=== PATIENT | male | born 1975 | race Caucasian/White ===

== ENCOUNTER 2016-11-13 07:51 | Outpatient (RCR) | payer MEDICARE, MEDICAID ==
[~2016-11-13 07:51] MED LIST: AMOX875T2 PO; APAP325T PO; BENZ200C44 PO; CELE20TA; CELE40TA OR; CIPR500T89 PO; FLAG500T PO; FLON0.054; GEOD40CA2 PO; GEOD60CA; GEOD60CA OR; GEOD60CA PO; GUAI1TAB PO; IBUP-1114 PO; MOM30SS PO; MYLI40DR PO; OMEP40CA2 PO; PREV30TA; PRIL40CA PO; PROA1AER INH; PROT1TAB2 PO; TRAZ100T4 PO; TRAZ50TA; TRAZ50TA OR; TRAZ50TA4 PO; TYLE325T5 PO; ZIPR40CA11 PO; ZIPR80CAP; antibiotic
== END 2016-11-21 ==
LOC: M PT 07:51
PROVIDERS: ATTEND Orthopaedic Surgery
DX: Z51.89 Encounter for other specified aftercare (principal); M51.26 Other intervertebral disc displacement, lumbar region; M47.896 Other spondylosis, lumbar region
CPT/HCPCS: 97162; G8978; G8979

== ENCOUNTER 2016-12-05 08:30 | Outpatient (RCR) | payer MEDICARE, MEDICAID ==
[~2016-12-05 08:30] MED LIST changes: -ALBU17IN INH; -BREO1INH INH; -BUSP15TA47 PO; -DOXY-278 PO; -FLON1SPR; -HYDR25T PO; -MUCI600T34 PO; -NICO2GUM8 PO; -PRED20TA PO; -TESS100C PO; -TYLE500T78 PO; -ZIPR80CA12 PO
[2016-12-15] MEDS ORDERED: FLON1SPR (10:36)
[2016-12-15] MEDS ORDERED: BREO1INH INH (10:36)
[2016-12-15] MEDS ORDERED: TYLE500T78 PO (10:36)
[2016-12-15] MEDS ORDERED: PROA1AER INH (10:36)
[2016-12-15] MEDS ORDERED: HYDR25T PO (10:36)
[2016-12-15] MEDS ORDERED: NICO2GUM8 PO (10:36)
[2016-12-15] MEDS ORDERED: BUSP15TA47 PO (10:36)
[2016-12-15] MEDS ORDERED: ZIPR80CA12 PO (10:36)
== END 2016-12-08 15:10 | disposition home or self-care (01) ==
LOC: M PT 08:30
PROVIDERS: ATTEND Orthopaedic Surgery
DX: Z51.89 Encounter for other specified aftercare (principal); M51.26 Other intervertebral disc displacement, lumbar region; M47.896 Other spondylosis, lumbar region

== ENCOUNTER → 2016-12-05 | Outpatient (REF) | payer MEDICARE, MEDICAID ==
[~2016-12-05] MED LIST changes: +ALBU17IN INH; +BREO1INH INH; +BUSP15TA47 PO; +DOXY-278 PO; +FLON1SPR; +HYDR25T PO; +MUCI600T34 PO; +NICO2GUM8 PO; +PRED20TA PO; +TESS100C PO; +TYLE500T78 PO; +ZIPR80CA12 PO
[2016-12-05 12:56] LABS: MEAN CORPUSCULAR HEMOGLOBIN 34.2 pg (27.0-33.0); MEAN CORPUSCULAR HGB CONC 34.3 g/dl (32.0-36.5); MEAN CORPUSCULAR VOLUME 99.7 fl (80.0-96.0); RED CELL DISTRIBUTION WIDTH 12.4 % (11.5-14.5); WHITE BLOOD COUNT 7.5 K/mm3 (4.0-10.0)
[2016-12-05 13:05] LABS: INR 1.06
[2016-12-05 14:25] LABS: ALKALINE PHOSPHATASE 95 U/L (45-117); ALT/SGPT 50 U/L (12-78); AST/SGOT 24 U/L (15-37); BILIRUBIN,TOTAL 0.6 MG/DL (0.2-1.0); CHLORIDE LEVEL 105 MEQ/L (98-107); CREATININE FOR GFR 0.96 MG/DL (0.70-1.30); POTASSIUM SERUM 4.2 MEQ/L (3.5-5.1); SODIUM LEVEL 140 MEQ/L (136-145); TOTAL PROTEIN 7.1 GM/DL (6.4-8.2)
[2016-12-05 14:36] LABS: ALBUMIN/GLOBULIN RATIO 1.29 (1.00-1.93); ANION GAP 7 MEQ/L (8-16); BLOOD UREA NITROGEN 19 MG/DL (7-18); CALCIUM LEVEL 8.8 MG/DL (8.5-10.1); CARBON DIOXIDE LEVEL 28 MEQ/L (21-32); GLUCOSE, FASTING 122 MG/DL (70-105)
== END ==
LOC: M SFHCADAM 11:17
PROVIDERS: ATTEND Family Medicine
DX: Z01.818 Encounter for other preprocedural examination (principal); K21.9 Gastro-esophageal reflux disease without esophagitis; R94.31 Abnormal electrocardiogram [ECG] [EKG]; Z79.899 Other long term (current) drug therapy
CPT/HCPCS: 80053; 85027; 85610; 85730; 93005; G0463

== ENCOUNTER 2016-12-08 18:23 | Emergency (ER) | payer MEDICARE, MEDICAID ==
--- NOTE | 2016-12-08 19:39 | EDDOCDS ---
Nurse's Notes [facility] Name: Glen Barlow Age: 40 yrs Sex: Male : 1975 Arrival Date: 12/08/2016 Time: 18:23 Bed TR8 Private MD: Ashley Villegas PA-C Diagnosis: Acute anal fissure;Dysuria Presentation: 12/08 18:28 Presenting complaint: Patient states: Blood in urine and rectal pain. "I think my ld5 hemorrhoids have been flaring up and I can't eat spicy foods. I think I need an xray". Adult Sepsis Screening: The patient does not have new or worsening altered mentation. Patient's respiratory rate is less than 22. Systolic blood pressure is greater than 100. Patient has a qSOFA score of 0- Negative Sepsis Screen. Suicide/Homicide risk assessment- the patient denies having any suicidal and/or homicidal ideations and does not present with any other emotional, behavioral or mental health complaints. 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 Transition of care: patient was not received from another setting of care. 18:28 Acuity: TATIANNA Level 4 ld5 18:28 Method Of Arrival: Walkin/Carried/Asstd ld5 Triage Assessment: 18:31 General: Appears unkempt, Behavior is anxious, cooperative. Pain: Location: rectum Pain ld5 currently is 7 out of 10 on a pain scale. HIV screening NA for this visit Offered previously. Respiratory: Airway is patent Respiratory effort is even, unlabored. : Reports hematuria. Historical: - Allergies: Aspirin ("makes me high"); - Home Meds: 1. albuterol sulfate 90 mcg/actuation Inhl HFAA 2 puffs every 4 hours 2. Geodon 40 mg Oral cap 2 times per day 3. hydroxyzine HCl 25 mg Oral tab daily 4. Nasonex 50 mcg/actuation Nasal spry 2 sprays once daily 5. omeprazole 20 mg Oral cpDR once daily 6. trazodone 50 mg Oral tab 1 tab nightly 7. Tylenol 325 mg Oral tab as needed - PMHx: Allergies, Seasonal; Anxiety; Bipolar disorder; GERD; Schizophrenia; Hiatal Hernia; Hemorrhoids; - PSHx: none; - Social history: Smoking status: Patient uses tobacco products, current every day smoker. No barriers to communication noted, The patient speaks fluent Hebrew, Speaks appropriately for age. - Family history: Not pertinent. - : The pt / caregiver states he / she is not on anticoagulants. Home medication list is obtained from the patient. - Exposure Risk Screening:: None identified. Screenin:37 Screening information is obtained from the patient. Fall risk: No risks identified. cz Assistance ADL's: requires no assistance with activities of daily living. Abuse/DV Screen: The patient / caregiver reports he/she is: not in a situation that causes fear, pain or injury. Nutritional screening: No deficits noted. Advance Directives: Currently, there is no health care proxy. There is no active DNR order. There is no living will. There is no Power of Product Marketing Intern. Advance directive information has not previously been placed in an [facility] medical record. home support is adequate. Assessment: 19:37 Reassessment: Patient appears in no apparent distress at this time. Patient states cz symptoms have improved. Vital Signs: 18:25 BP 142 / 66; Pulse 92; Resp 20 S; Temp 97.7(O); Pulse Ox 98% on R/A; Weight 110.22 kg gr2 (R); Height 5 ft. 6 in. (167.64 cm) (R); Pain 7/10; 19:36 BP 164 / 77 LA Sitting (auto/reg); Pulse 86 MON; Resp 20 S; Temp 97.9(TE); Pulse Ox 96% cln on R/A; Pain 0/10; 18:25 Body Mass Index 39.22 (110.22 kg, 167.64 cm) gr2 Vitals: 18:25 Log In Time: December 08, 2016 at 18:25. gr2 ED Course: 18:24 Patient visited by Reece Garnica. gr2 18:24 Patient moved to Waiting gr2 18:25 Ashley Villegas is Private Physician. gr2 18:27 Patient visited by Reece Garnica. gr2 18:27 Patient moved to Pre RCE gr2 18:30 Triage Initiated ld5 18:32 Patient visited by Isabel Mckeon RN. ld5 18:32 [facility]. ar2 18:32 Linda Gonzalez MD is Attending Physician. ar2 18:32 Patient moved to Triage 2 ld5 18:35 Patient visited by Vish Nathan PA-C. ar2 18:41 Patient moved to PR jjr 18:51 Urine Culture Sent. jjr 18:51 UA Sent. jjr 19:31 Ashley Villegas is Referral Physician. ar2 19:37 Patient visited by Kaylah Riggs PCA. cln 19:37 Patient moved to TR8 cz 19:37 The patient / caregiver is instructed regarding the plan of care and ED course. cz 19:37 No IV's were initiated during this patient's visit. No procedures done that require cz assistance. Order Results: Lab Order: UA; SPEC'M 12/08/16 18:40 Test: APPEARANCE, URINE; Value: CLEAR; Range: CLEAR; Status: F Test: COLOR, URINE; Value: STRAW; Range: YELLOW; Status: F Test: PH,URINE; Value: 7.0; Range: 5.0-9.0; Units: UNITS; Status: F Test: SPECIFIC GRAVITY URINE AUTO; Value: 1.004; Range: 1.002-1.035; Status: F Test: PROTEIN, URINE AUTO; Value: NEGATIVE; Range: NEGATIVE; Units: mg/dL; Status: F Test: GLUCOSE, URINE (UA) AUTO; Value: NEGATIVE; Range: NEGATIVE; Units: mg/dL; Status: F Test: KETONE, URINE AUTO; Value: NEGATIVE; Range: NEGATIVE; Units: mg/dL; Status: F Test: UROBILINOGEN, URINE AUTO; Value: 0.2; Range: 0.0-2.0; Units: mg/dL; Status: F Test: BILIRUBIN, URINE AUTO; Value: NEGATIVE; Range: NEGATIVE; Status: F Test: NITRITE, URINE AUTO; Value: NEGATIVE; Range: NEGATIVE; Status: F Test: LEUKOCYTE ESTERASE, URINE AUTO; Value: NEGATIVE; Range: NEGATIVE; Status: F Test: BLOOD, URINE BLOOD; Value: 1+; Range: NEGATIVE; Abnormal: Above high normal; Status: F Test: WBC, URINE AUTO; Value: 0; Range: 0-3; Units: /HPF; Status: F Test: RBC, URINE AUTO; Value: 1; Range: 0-3; Units: /HPF; Status: F Test: BACTERIA, URINE AUTO; Value: NEGATIVE; Range: NEGATIVE; Status: F Test: SQUAMOUS EPITHELIAL CELL UR AU; Value: 0; Range: 0-6; Units: /HPF; Status: F Test: HYALINE CAST, URINE AUTO; Value: 0; Range: 0-1; Units: /LPF; Status: F Outcome: 19:32 Discharge ordered by Provider. ar2 19:38 Patient left the ED. cz Signatures: Ponce Stokes RN RN cz Geno Garnica RN RN jrudyr Vish Nathan PA-C PAVincent ar2 Isabel Mckeon,RN RN ld5 Reece Garnica gr2 Keely, Kaylah, LIGHT BULB ASSEMBLER LIGHT BULB ASSEMBLER cln MTDD
--- NOTE | 2016-12-08 19:39 | EDDOCDS ---
Physician Documentation [facility] Name: Glen Barlow Age: 40 yrs Sex: Male : 1975 Arrival Date: 12/08/2016 Time: 18:23 Bed TR8 Private MD: Ashley Villegas PA-C Disposition: 12/08/16 19:32 Discharged to Home/Self Care. Impression: Acute anal fissure, Dysuria. - Condition is Stable. - Discharge Instructions: Anal Fissure, Adult, Dysuria. - Medication Reconciliation, Local Pharmacy Hours form. - Follow up: Ashley Villegas; When: 4 - 5 days; Reason: Recheck today's complaints. Follow up: Emergency Department; When: As needed; Reason: Worsening of conditions. - Problem is new. - Symptoms are unchanged. - Notes: recommend usingflushable wetwipes to aid in discomfort after using bathroom. Historical: - Allergies: Aspirin ("makes me high"); - Home Meds: 1. albuterol sulfate 90 mcg/actuation Inhl HFAA 2 puffs every 4 hours 2. Geodon 40 mg Oral cap 2 times per day 3. hydroxyzine HCl 25 mg Oral tab daily 4. Nasonex 50 mcg/actuation Nasal spry 2 sprays once daily 5. omeprazole 20 mg Oral cpDR once daily 6. trazodone 50 mg Oral tab 1 tab nightly 7. Tylenol 325 mg Oral tab as needed - PMHx: Allergies, Seasonal; Anxiety; Bipolar disorder; GERD; Schizophrenia; Hiatal Hernia; Hemorrhoids; - PSHx: none; - Social history: Smoking status: Patient uses tobacco products, current every day smoker. No barriers to communication noted, The patient speaks fluent Portuguese, Speaks appropriately for age. - Family history: Not pertinent. - : The pt / caregiver states he / she is not on anticoagulants. Home medication list is obtained from the patient. - Exposure Risk Screening:: None identified. Vital Signs: 12/08 18:25 BP 142 / 66; Pulse 92; Resp 20 S; Temp 97.7(O); Pulse Ox 98% on R/A; Weight 110.22 kg / gr2 242.99 lbs (R); Height 5 ft. 6 in. (167.64 cm) (R); Pain 7/10; 19:36 BP 164 / 77 LA Sitting (auto/reg); Pulse 86 MON; Resp 20 S; Temp 97.9(TE); Pulse Ox 96% cln on R/A; Pain 0/10; 18:25 Body Mass Index 39.22 (110.22 kg, 167.64 cm) gr2 MDM: 18:41 Undress patient appropriately for examination ordered. ar2 18:41 Misc. Nursing Order ordered. ar2 18:42 UA Ordered. EDMS 18:42 Urine Culture Ordered. EDMS 19:04 Financial registration complete. gjb 19:29 UA Reviewed. ar2 Signatures: Dispatcher [employer] EDPonce Taylor RN RN cz Vish Nathan PA-C PA-C ar2 Isabel Mckeon,RN RN ld5 Lydia Jarvis MTDD
--- NOTE | 2016-12-10 20:39 | EDDOCDS ---
Nurse's Notes [facility] Name: Glen Barlow Age: 40 yrs Sex: Male : 1975 Arrival Date: 12/08/2016 Time: 18:23 Bed TR8 Private MD: Ashley Villegas PA-C Diagnosis: Acute anal fissure;Dysuria Presentation: 12/08 18:28 Presenting complaint: Patient states: Blood in urine and rectal pain. "I think my ld5 hemorrhoids have been flaring up and I can't eat spicy foods. I think I need an xray". Adult Sepsis Screening: The patient does not have new or worsening altered mentation. Patient's respiratory rate is less than 22. Systolic blood pressure is greater than 100. Patient has a qSOFA score of 0- Negative Sepsis Screen. Suicide/Homicide risk assessment- the patient denies having any suicidal and/or homicidal ideations and does not present with any other emotional, behavioral or mental health complaints. Status: Patient is not a business services representative or dependent. Transition of care: patient was not received from another setting of care. 18:28 Acuity: TATIANNA Level 4 ld5 18:28 Method Of Arrival: Walkin/Carried/Asstd ld5 Triage Assessment: 18:31 General: Appears unkempt, Behavior is anxious, cooperative. Pain: Location: rectum Pain ld5 currently is 7 out of 10 on a pain scale. HIV screening NA for this visit Offered previously. Respiratory: Airway is patent Respiratory effort is even, unlabored. : Reports hematuria. Historical: - Allergies: Aspirin ("makes me high"); - Home Meds: 1. albuterol sulfate 90 mcg/actuation Inhl HFAA 2 puffs every 4 hours 2. Geodon 40 mg Oral cap 2 times per day 3. hydroxyzine HCl 25 mg Oral tab daily 4. Nasonex 50 mcg/actuation Nasal spry 2 sprays once daily 5. omeprazole 20 mg Oral cpDR once daily 6. trazodone 50 mg Oral tab 1 tab nightly 7. Tylenol 325 mg Oral tab as needed - PMHx: Allergies, Seasonal; Anxiety; Bipolar disorder; GERD; Schizophrenia; Hiatal Hernia; Hemorrhoids; - PSHx: none; - Social history: Smoking status: Patient uses tobacco products, current every day smoker. No barriers to communication noted, The patient speaks fluent Sami, Speaks appropriately for age. - Family history: Not pertinent. - : The pt / caregiver states he / she is not on anticoagulants. Home medication list is obtained from the patient. - Exposure Risk Screening:: None identified. Screenin:37 Screening information is obtained from the patient. Fall risk: No risks identified. cz Assistance ADL's: requires no assistance with activities of daily living. Abuse/DV Screen: The patient / caregiver reports he/she is: not in a situation that causes fear, pain or injury. Nutritional screening: No deficits noted. Advance Directives: Currently, there is no health care proxy. There is no active DNR order. There is no living will. There is no Power of Bundle Tier And Labeler. Advance directive information has not previously been placed in an [facility] medical record. home support is adequate. Assessment: 19:37 Reassessment: Patient appears in no apparent distress at this time. Patient states cz symptoms have improved. Vital Signs: 18:25 BP 142 / 66; Pulse 92; Resp 20 S; Temp 97.7(O); Pulse Ox 98% on R/A; Weight 110.22 kg gr2 (R); Height 5 ft. 6 in. (167.64 cm) (R); Pain 7/10; 19:36 BP 164 / 77 LA Sitting (auto/reg); Pulse 86 MON; Resp 20 S; Temp 97.9(TE); Pulse Ox 96% cln on R/A; Pain 0/10; 18:25 Body Mass Index 39.22 (110.22 kg, 167.64 cm) gr2 Vitals: 18:25 Log In Time: December 08, 2016 at 18:25. gr2 ED Course: 18:24 Patient visited by Reece Garnica. gr2 18:24 Patient moved to Waiting gr2 18:25 Ashley Villegas is Private Physician. gr2 18:27 Patient visited by Reece Garnica. gr2 18:27 Patient moved to Pre RCE gr2 18:30 Triage Initiated ld5 18:32 Patient visited by Isabel Mckeon RN. ld5 18:32 [facility]. ar2 18:32 Linda Gonzalez MD is Attending Physician. ar2 18:32 Patient moved to Triage 2 ld5 18:35 Patient visited by Vish Nathan PA-C. ar2 18:41 Patient moved to PR jjr 18:51 Urine Culture Sent. jjr 18:51 UA Sent. jjr 19:31 Ashley Villegas is Referral Physician. ar2 19:37 Patient visited by Kaylah Riggs PCA. cln 19:37 Patient moved to TR8 cz 19:37 The patient / caregiver is instructed regarding the plan of care and ED course. cz 19:37 No IV's were initiated during this patient's visit. No procedures done that require cz assistance. 20:13 [facility] Payment Agreement was scanned into [employer] and attached to record. gjb 12/09 11:05 T-Sheet-- Draft Copy was scanned into [employer] and attached to record. gb Order Results: Lab Order: UA; SPEC'M 12/08/16 18:40 Test: APPEARANCE, URINE; Value: CLEAR; Range: CLEAR; Status: F Test: COLOR, URINE; Value: STRAW; Range: YELLOW; Status: F Test: PH,URINE; Value: 7.0; Range: 5.0-9.0; Units: UNITS; Status: F Test: SPECIFIC GRAVITY URINE AUTO; Value: 1.004; Range: 1.002-1.035; Status: F Test: PROTEIN, URINE AUTO; Value: NEGATIVE; Range: NEGATIVE; Units: mg/dL; Status: F Test: GLUCOSE, URINE (UA) AUTO; Value: NEGATIVE; Range: NEGATIVE; Units: mg/dL; Status: F Test: KETONE, URINE AUTO; Value: NEGATIVE; Range: NEGATIVE; Units: mg/dL; Status: F Test: UROBILINOGEN, URINE AUTO; Value: 0.2; Range: 0.0-2.0; Units: mg/dL; Status: F Test: BILIRUBIN, URINE AUTO; Value: NEGATIVE; Range: NEGATIVE; Status: F Test: NITRITE, URINE AUTO; Value: NEGATIVE; Range: NEGATIVE; Status: F Test: LEUKOCYTE ESTERASE, URINE AUTO; Value: NEGATIVE; Range: NEGATIVE; Status: F Test: BLOOD, URINE BLOOD; Value: 1+; Range: NEGATIVE; Abnormal: Above high normal; Status: F Test: WBC, URINE AUTO; Value: 0; Range: 0-3; Units: /HPF; Status: F Test: RBC, URINE AUTO; Value: 1; Range: 0-3; Units: /HPF; Status: F Test: BACTERIA, URINE AUTO; Value: NEGATIVE; Range: NEGATIVE; Status: F Test: SQUAMOUS EPITHELIAL CELL UR AU; Value: 0; Range: 0-6; Units: /HPF; Status: F Test: HYALINE CAST, URINE AUTO; Value: 0; Range: 0-1; Units: /LPF; Status: F Lab Order: Urine Culture; SPEC'M 12/08/16 18:40 Test: URINE CULTURE; Value: <EXTERNAL COMMENT eCWMed> FULL REPORT IN LAB NOTES (eCW and Medent).; Status: F Test: URINE CULTURE; Value: URINE CULTURE RESULT NO GROWTH; Status: F Outcome: 12/08 19:32 Discharge ordered by Provider. ar2 19:38 Patient left the ED. cz Signatures: Ponce Stokes, RN RN cz Emma Merino, Kenneth Reg Geno Abbott, RN RN Vish Castellanos, PA-C PA-C ar2 Isabel Mckoen,RN RN ld5 Reece Garnica grLydia Pachecob Keely, Kaylah, CARDIAC TECHNOLOGIST CARDIAC TECHNOLOGIST cln Chart Complete MTDD
--- NOTE | 2016-12-10 20:39 | EDDOCDS ---
Physician Documentation [facility] Name: Glen Barlow Age: 40 yrs Sex: Male : 1975 Arrival Date: 12/08/2016 Time: 18:23 Bed TR8 Private MD: Ashley Villegas PA-C Disposition: 12/08/16 19:32 Discharged to Home/Self Care. Impression: Acute anal fissure, Dysuria. - Condition is Stable. - Discharge Instructions: Anal Fissure, Adult, Dysuria. - Medication Reconciliation, Local Pharmacy Hours form. - Follow up: Ashley Villegas; When: 4 - 5 days; Reason: Recheck today's complaints. Follow up: Emergency Department; When: As needed; Reason: Worsening of conditions. - Problem is new. - Symptoms are unchanged. - Notes: recommend usingflushable wetwipes to aid in discomfort after using bathroom. Historical: - Allergies: Aspirin ("makes me high"); - Home Meds: 1. albuterol sulfate 90 mcg/actuation Inhl HFAA 2 puffs every 4 hours 2. Geodon 40 mg Oral cap 2 times per day 3. hydroxyzine HCl 25 mg Oral tab daily 4. Nasonex 50 mcg/actuation Nasal spry 2 sprays once daily 5. omeprazole 20 mg Oral cpDR once daily 6. trazodone 50 mg Oral tab 1 tab nightly 7. Tylenol 325 mg Oral tab as needed - PMHx: Allergies, Seasonal; Anxiety; Bipolar disorder; GERD; Schizophrenia; Hiatal Hernia; Hemorrhoids; - PSHx: none; - Social history: Smoking status: Patient uses tobacco products, current every day smoker. No barriers to communication noted, The patient speaks fluent Belarusian, Speaks appropriately for age. - Family history: Not pertinent. - : The pt / caregiver states he / she is not on anticoagulants. Home medication list is obtained from the patient. - Exposure Risk Screening:: None identified. Vital Signs: 12/08 18:25 BP 142 / 66; Pulse 92; Resp 20 S; Temp 97.7(O); Pulse Ox 98% on R/A; Weight 110.22 kg / gr2 242.99 lbs (R); Height 5 ft. 6 in. (167.64 cm) (R); Pain 7/10; 19:36 BP 164 / 77 LA Sitting (auto/reg); Pulse 86 MON; Resp 20 S; Temp 97.9(TE); Pulse Ox 96% cln on R/A; Pain 0/10; 18:25 Body Mass Index 39.22 (110.22 kg, 167.64 cm) gr2 MDM: 18:41 Undress patient appropriately for examination ordered. ar2 18:41 Misc. Nursing Order ordered. ar2 18:42 UA Ordered. EDMS 18:42 Urine Culture Ordered. EDMS 19:04 Financial registration complete. gjb 19:29 UA Reviewed. ar2 20:13 [facility] Payment Agreement was scanned into [employer] and attached to record. gjb 12/09 11:05 T-Sheet-- Draft Copy was scanned into [employer] and attached to record. gb Signatures: Dispatcher [employer] EDMS Ponce Stokes, YESICA RN cz Emma Merino, Reg Reg gb Vish Nathan, PA-C PAVincent ar2 Isabel Mckeon,RN RN ld5 Lydia Jarvis [facility] The chart was reviewed and I authenticate all verbal orders and agree with the evaluation and treatment provided.Attachments: 12/08 20:13 [facility] Payment Agreement gjb 12/09 11:05 T-Sheet-- Draft Copy gb Chart Complete MTDD
--- NOTE | 2016-12-10 20:39 | EDDOCDS ---
Physician Documentation [facility] Name: Glen Barlow Age: 40 yrs Sex: Male : 1975 Arrival Date: 12/08/2016 Time: 18:23 Bed TR8 Private MD: Ashley Villegas PA-C Disposition: 12/08/16 19:32 Discharged to Home/Self Care. Impression: Acute anal fissure, Dysuria. - Condition is Stable. - Discharge Instructions: Anal Fissure, Adult, Dysuria. - Medication Reconciliation, Local Pharmacy Hours form. - Follow up: Ashley Villegas; When: 4 - 5 days; Reason: Recheck today's complaints. Follow up: Emergency Department; When: As needed; Reason: Worsening of conditions. - Problem is new. - Symptoms are unchanged. - Notes: recommend usingflushable wetwipes to aid in discomfort after using bathroom. Historical: - Allergies: Aspirin ("makes me high"); - Home Meds: 1. albuterol sulfate 90 mcg/actuation Inhl HFAA 2 puffs every 4 hours 2. Geodon 40 mg Oral cap 2 times per day 3. hydroxyzine HCl 25 mg Oral tab daily 4. Nasonex 50 mcg/actuation Nasal spry 2 sprays once daily 5. omeprazole 20 mg Oral cpDR once daily 6. trazodone 50 mg Oral tab 1 tab nightly 7. Tylenol 325 mg Oral tab as needed - PMHx: Allergies, Seasonal; Anxiety; Bipolar disorder; GERD; Schizophrenia; Hiatal Hernia; Hemorrhoids; - PSHx: none; - Social history: Smoking status: Patient uses tobacco products, current every day smoker. No barriers to communication noted, The patient speaks fluent Syriac, Speaks appropriately for age. - Family history: Not pertinent. - : The pt / caregiver states he / she is not on anticoagulants. Home medication list is obtained from the patient. - Exposure Risk Screening:: None identified. Vital Signs: 12/08 18:25 BP 142 / 66; Pulse 92; Resp 20 S; Temp 97.7(O); Pulse Ox 98% on R/A; Weight 110.22 kg / gr2 242.99 lbs (R); Height 5 ft. 6 in. (167.64 cm) (R); Pain 7/10; 19:36 BP 164 / 77 LA Sitting (auto/reg); Pulse 86 MON; Resp 20 S; Temp 97.9(TE); Pulse Ox 96% cln on R/A; Pain 0/10; 18:25 Body Mass Index 39.22 (110.22 kg, 167.64 cm) gr2 MDM: 18:41 Undress patient appropriately for examination ordered. ar2 18:41 Misc. Nursing Order ordered. ar2 18:42 UA Ordered. EDMS 18:42 Urine Culture Ordered. EDMS 19:04 Financial registration complete. gjb 19:29 UA Reviewed. ar2 20:13 [facility] [place] was scanned into [employer] and attached to record. gjb 12/09 11:05 T-Sheet-- Draft Copy was scanned into [employer] and attached to record. gb Signatures: Dispatcher [employer] EDMS Ponce Stokes, YESICA RN cz Emma Merino, Reg Reg gb Vish Nathan, PA-C PAVincent ar2 Isabel Mckeon,RN RN ld5 Lydia Jarvis [facility] The chart was reviewed and I authenticate all verbal orders and agree with the evaluation and treatment provided.Attachments: 12/08 20:13 [facility] [place] Agreement gjb 12/09 11:05 T-Sheet-- Draft Copy gb Chart Complete MTDD
[2016-12-15] MEDS ORDERED: PROA1AER INH (10:36)
[2016-12-15] MEDS ORDERED: FLON1SPR (10:36)
[2016-12-15] MEDS ORDERED: TYLE500T78 PO (10:36)
[2016-12-15] MEDS ORDERED: BREO1INH INH (10:36)
[2016-12-15] MEDS ORDERED: BUSP15TA47 PO (10:36)
[2016-12-15] MEDS ORDERED: HYDR25T PO (10:36)
[2016-12-15] MEDS ORDERED: ZIPR80CA12 PO (10:36)
[2016-12-15] MEDS ORDERED: NICO2GUM8 PO (10:36)
== END 2016-12-08 19:38 | disposition home or self-care (01) ==
LOC: M ED 18:23
DX: K60.2 Anal fissure, unspecified (principal); R30.0 Dysuria; J30.2 Other seasonal allergic rhinitis; F31.9 Bipolar disorder, unspecified; K21.9 Gastro-esophageal reflux disease without esophagitis; K44.9 Diaphragmatic hernia without obstruction or gangrene; K64.9 Unspecified hemorrhoids; F20.9 Schizophrenia, unspecified; Z72.0 Tobacco use; Z92.240 Personal history of inhaled steroid therapy; Z79.899 Other long term (current) drug therapy; Z88.6 Allergy status to analgesic agent

== ENCOUNTER 2016-12-22 07:34 | Emergency (ER) | payer MEDICARE, MEDICAID ==
[~2016-12-22] VITALS: Ht 167.6 cm; Wt 112.0 kg
[~2016-12-22 07:34] MED LIST changes: -ALBU17IN INH; -DOXY-278 PO; -GLYCOPYRROLATE INJ 0.2 MG/ML 2 ML VIAL As Ordered ONE; -KETOROLAC 60 MG/2 ML VIAL (J1885) As Ordered ONE; -LIDOCAINE 2% INJ 100 MG/5 ML SDV (FOR ANES.) As Ordered ONE; -LR 1,000 ML IV SCH; -MIDAZOLAM INJ 2 MG/2 ML VIAL (J2250) As Ordered ONE; -MUCI600T34 PO; -NEOSTIGMINE 1MG/ML 5 ML SYRINGE (J2710) As Ordered ONE; -ONDANSETRON 4MG/2ML VIAL (J2405) As Ordered ONE; -PRED20TA PO; -PROPOFOL 200 MG/20 ML VIAL As Ordered ONE; -ROCURONIUM BROMIDE 50 MG/5 ML VIAL As Ordered ONE; -TESS100C PO; -dexameTHASONE 4 MG/ML 1ML VIAL (J1100) As Ordered ONE; -fentaNYL 100 MCG/2 ML INJECTION (J3010) As Ordered ONE
[2016-12-22] MEDS ORDERED: IPRATROPIUM 0.5MG/ALBUTEROL 2.5MG INH SOL UD 3ML (DUONEB)(J7620) NEB ONE ×2 (08:15→09:00)
[2016-12-22 09:53] VITALS: BP 148/75
[2016-12-22] MEDS ORDERED: MUCI600T34 PO (10:06)
[2016-12-22] MEDS ORDERED: ALBU17IN INH (10:06)
[2016-12-22] MEDS ORDERED: DOXY-278 PO (10:06)
[2016-12-22] MEDS ORDERED: TESS100C PO (10:06)
[2016-12-22] MEDS ORDERED: BREO1INH INH (10:06)
[2016-12-22] MEDS ORDERED: PRED20TA PO (10:07)
--- NOTE | 2016-12-22 10:38 | REP ---
CHEST, TWO VIEWS: COMPARISON: 06/29/2016 There is no acute infiltrate or pulmonary edema. There is mild cardiomegaly. There is a calcified granuloma again seen in the right lung base. The mediastinal silhouette is unremarkable. There are minor degenerative changes of the spine. IMPRESSION: Mild cardiomegaly. No acute pulmonary disease. Signed by Richard Ramírez MD 12/22/2016 08:30 P
== END 2016-12-22 10:15 | disposition home or self-care (01) ==
LOC: M ED 08:03
DX: Z76.0 Encounter for issue of repeat prescription (principal); J20.9 Acute bronchitis, unspecified; J45.909 Unspecified asthma, uncomplicated; G47.30 Sleep apnea, unspecified; F41.9 Anxiety disorder, unspecified; F31.9 Bipolar disorder, unspecified; F17.200 Nicotine dependence, unspecified, uncomplicated; Z88.6 Allergy status to analgesic agent; Z79.899 Other long term (current) drug therapy; Z79.51 Long term (current) use of inhaled steroids

== ENCOUNTER → 2016-12-22 | Day surgery (SDC) | payer MEDICARE, MEDICAID ==
[~2016-12-22] VITALS: Ht 167.6 cm; Wt 113.4 kg
[~2016-12-22] MED LIST changes: +ALBU17IN INH; +BREO1INH INH; +BUSP15TA47 PO; +DOXY-278 PO; +FLON1SPR; +GLYCOPYRROLATE INJ 0.2 MG/ML 2 ML VIAL As Ordered ONE; +HYDR25T PO; +KETOROLAC 60 MG/2 ML VIAL (J1885) As Ordered ONE; +LIDOCAINE 2% INJ 100 MG/5 ML SDV (FOR ANES.) As Ordered ONE; +LR 1,000 ML IV SCH; +MIDAZOLAM INJ 2 MG/2 ML VIAL (J2250) As Ordered ONE; +MUCI600T34 PO; +NEOSTIGMINE 1MG/ML 5 ML SYRINGE (J2710) As Ordered ONE; +NICO2GUM8 PO; +ONDANSETRON 4MG/2ML VIAL (J2405) As Ordered ONE; +PRED20TA PO; +PROPOFOL 200 MG/20 ML VIAL As Ordered ONE; +ROCURONIUM BROMIDE 50 MG/5 ML VIAL As Ordered ONE; +TESS100C PO; +TYLE500T78 PO; +ZIPR80CA12 PO; +dexameTHASONE 4 MG/ML 1ML VIAL (J1100) As Ordered ONE; +fentaNYL 100 MCG/2 ML INJECTION (J3010) As Ordered ONE
== END | disposition home or self-care (01) ==
LOC: M SDC 05:52
PROVIDERS: ATTEND Surgery
DX: Z53.29 Procedure and treatment not carried out because of patient's decision for other reasons (principal)

== ENCOUNTER 2017-01-14 14:47 | Emergency (ER) | payer MEDICARE, MEDICAID ==
[~2017-01-14] VITALS: Ht 160 cm; Wt 110.2 kg
[~2017-01-14 14:47] MED LIST changes: +ALBU17IN INH; +DOXY-278 PO; +MUCI600T34 PO; +PRED20TA PO; +TESS100C PO
[2017-01-14] MEDS ORDERED: NS 1,000 ML IV ONE (15:30)
[2017-01-14] MEDS: MORPHINE 4 MG/ML 1ML SYRINGE IV ONE ×2 (15:30→16:08)
[2017-01-14] MEDS ORDERED: FAMOTIDINE IV BAG 20 MG in APPROPRIATE DILUENT 1 EA IV ONE (15:30)
[2017-01-14] MEDS ORDERED: ONDANSETRON 4MG/2ML VIAL (J2405) IV ONE (15:45)
[2017-01-14 16:07] LABS: EOS % 0.2 % (0.0-3.0); LARGE UNSTAINED CELL # 0.1 K/mm3 (0.0-0.4); LARGE UNSTAINED CELL % 0.7 % (0.0-4.0); LYMPH # 1.1 K/mm3 (1.5-4.5); MEAN CORPUSCULAR HEMOGLOBIN 34.3 pg (27.0-33.0); MEAN CORPUSCULAR VOLUME 100.8 fl (80.0-96.0); MONO # 0.5 K/mm3 (0.0-0.8); MONO % 4.8 % (0.0-5.0); NEUTROPHILS # 9.6 K/mm3 (1.8-7.7); NEUTROPHILS % 85.3 % (36.0-66.0); PLATELET COUNT, AUTOMATED 179 k/mm3 (150-450); WHITE BLOOD COUNT 11.2 K/mm3 (4.0-10.0)
[2017-01-14 16:10] LABS: INR 1.01
[2017-01-14 16:20] LABS: ALBUMIN 3.9 GM/DL (3.2-5.2); ALBUMIN/GLOBULIN RATIO 1.26 (1.00-1.93); ALKALINE PHOSPHATASE 108 U/L (45-117); ALT/SGPT 38 U/L (12-78); AMYLASE 39 U/L (25-115); ANION GAP 7 MEQ/L (8-16); AST/SGOT 12 U/L (15-37); BILIRUBIN,DIRECT 0.1 MG/DL (0.0-0.2); BILIRUBIN,TOTAL 0.4 MG/DL (0.2-1.0); BLOOD UREA NITROGEN 15 MG/DL (7-18); CALCIUM LEVEL 8.6 MG/DL (8.5-10.1); CARBON DIOXIDE LEVEL 28 MEQ/L (21-32); CHLORIDE LEVEL 104 MEQ/L (98-107); CREATININE FOR GFR 1.06 MG/DL (0.70-1.30); GLOMERULAR FILTRATION RATE > 60.0 (>60); GLUCOSE, FASTING 238 MG/DL (70-105); POTASSIUM SERUM 4.3 MEQ/L (3.5-5.1); SODIUM LEVEL 139 MEQ/L (136-145)
[2017-01-14] MEDS ORDERED: ISOVUE-370 76% 100ML VIAL (Q9967) As Ordered ONE (16:43)
[2017-01-14] MEDS ORDERED: GI COCKTAIL 50ML BTL(HYOSCYAMINE/MAALOX/LIDOCAINE VISCOUS)(1:3:1) PO ONE (16:45)
--- NOTE | 2017-01-14 17:17 | REP ---
Clinical: Abdominal pain. Technique: Axial contrast enhanced images from the lung bases to the pubic symphysis using 100 ml Isovue 370 intravenous contrast material with coronal and sagittal re-formations. Comparison: 06/23/2015. Findings: Lung bases clear. Visualized heart and pericardium normal. Liver, spleen, pancreas, gallbladder, bilateral adrenal glands and kidneys are essentially normal. Splenic calcifications consistent with prior granulomatous disease. The enteric system is without obstruction or acute inflammatory process. Normal terminal ileum and appendix identified in the right lower quadrant. Scattered sigmoid diverticula noted without acute diverticulitis. Pelvis demonstrates normal bladder and age appropriate prostate/seminal vesicles. 5 cm fat containing periumbilical hernia noted. Vascular structures without aneurysm or dissection. Surrounding musculoskeletal structures are intact. Impression: 1. No acute intra-abdominal or pelvic pathology appreciated. 2. Evidence of prior granulomatous disease. 3. 5 cm fat containing periumbilical hernia. 4. Sigmoid diverticula without acute diverticulitis. Signed by Grady Francis MD 01/14/2017 05:08 P
[2017-01-14] MEDS ORDERED: CARA1TAB2 PO (17:42)
[2017-01-14] MEDS ORDERED: BENT20TA PO (17:42)
[2017-01-14 17:44] VITALS: BP 132/77
--- NOTE | 2017-01-15 09:33 | ECGEPIP ---
Stationary ECG Study [facility] - ED Test Date: 2017-01-14 Pat Name: VÍCTOR PAZ Department: Room: - Gender: M Oyster Tonger: YAMILEX : 1975 Requested By: KIARA NUNEZ Order Number: [id number] Reading MD: Nichole Carpio Measurements Intervals [place] Rate: 112 P: 59 [place]: 133 QRS: 24 QRSD: 80 T: 40 QT: 314 QTc: 429 Interpretive Statements SINUS TACHYCARDIA ABNORMAL RHYTHM ECG INCREASED RATE 08/24/16 Electronically Signed On 01-15-2017 9:33:18 EDT by Nichole Carpio
== END 2017-01-14 18:00 | disposition home or self-care (01) ==
LOC: EDBD 14:47 → M ED 16:44
DX: K29.70 Gastritis, unspecified, without bleeding (principal); K57.30 Diverticulosis of large intestine without perforation or abscess without bleeding; K45.8 Other specified abdominal hernia without obstruction or gangrene; K21.9 Gastro-esophageal reflux disease without esophagitis; J45.909 Unspecified asthma, uncomplicated; K44.9 Diaphragmatic hernia without obstruction or gangrene; F17.200 Nicotine dependence, unspecified, uncomplicated; Z79.899 Other long term (current) drug therapy; Z88.6 Allergy status to analgesic agent
CPT/HCPCS: 74177; 80048; 80076; 81001; 82150; 82550; 82553; 83605; 83690; 84484; 85025; 85610; 93005; 93041; 96374; 96375; 99285; J2405; Q9967

== ENCOUNTER 2017-01-16 14:00 | Emergency (ER) | payer MEDICARE, MEDICAID ==
[~2017-01-16] VITALS: Ht 170.2 cm; Wt 110.2 kg
[~2017-01-16 14:00] MED LIST changes: +BENT20TA PO; +CARA1TAB2 PO
[2017-01-16] MEDS ORDERED: GI COCKTAIL 50ML BTL(HYOSCYAMINE/MAALOX/LIDOCAINE VISCOUS)(1:3:1) PO ONE (15:00)
[2017-01-16] MEDS ORDERED: NS 500 ML IV ONE (15:00)
--- NOTE | 2017-01-16 15:16 | REP ---
Clinical: Right-sided chest pain . Comparison: 12/22/2016 . Findings: The mediastinum and cardiac silhouette are stable and within normal limits for portable technique. The lung frias are clear without acute consolidation, effusion, or pneumothorax. Skeletal structures are intact. Impression: Normal portable chest x-ray Signed by Grady Francis MD 01/16/2017 03:08 P
[2017-01-16 15:40] LABS: BASO % 0.3 % (0.0-1.0); EOS # 0.2 K/mm3 (0.0-0.50); EOS % 1.8 % (0.0-3.0); LARGE UNSTAINED CELL # 0.1 K/mm3 (0.0-0.4); LARGE UNSTAINED CELL % 1.2 % (0.0-4.0); LYMPH # 1.3 K/mm3 (1.5-4.5); LYMPH % 14.9 % (24.0-44.0); MEAN CORPUSCULAR HEMOGLOBIN 34.9 pg (27.0-33.0); MEAN CORPUSCULAR HGB CONC 35.3 g/dl (32.0-36.5); MEAN CORPUSCULAR VOLUME 98.7 fl (80.0-96.0); MONO # 0.6 K/mm3 (0.0-0.8); MONO % 7.7 % (0.0-5.0); PLATELET COUNT, AUTOMATED 166 k/mm3 (150-450); RED CELL DISTRIBUTION WIDTH 13.2 % (11.5-14.5)
[2017-01-16 15:46] LABS: INR 0.96
--- NOTE | 2017-01-16 15:52 | REP ---
Clinical: Pain and swelling . Technique: Ramírez scale and color Doppler evaluation using linear high frequency transducer. Findings: Ultrasound examination of the right and left lower extremity deep venous structures from the common femoral vein to the popliteal vein demonstrates normal compressibility flow and wave patterns in response to respiration and augmentation. There is no evidence for deep venous thrombosis. Impression: No evidence for deep venous thrombosis. Signed by Grady Francis MD 01/16/2017 03:43 P
[2017-01-16 16:02] LABS: ALBUMIN 3.6 GM/DL (3.2-5.2); ALBUMIN/GLOBULIN RATIO 1.06 (1.00-1.93); ALKALINE PHOSPHATASE 93 U/L (45-117); ALT/SGPT 33 U/L (12-78); ANION GAP 8 MEQ/L (8-16); AST/SGOT 16 U/L (15-37); BILIRUBIN,DIRECT < 0.1 MG/DL (0.0-0.2); BILIRUBIN,TOTAL 0.3 MG/DL (0.2-1.0); BLOOD UREA NITROGEN 16 MG/DL (7-18); CALCIUM LEVEL 8.5 MG/DL (8.5-10.1); CARBON DIOXIDE LEVEL 28 MEQ/L (21-32); CHLORIDE LEVEL 104 MEQ/L (98-107); CREATININE FOR GFR 0.93 MG/DL (0.70-1.30); GLOMERULAR FILTRATION RATE > 60.0 (>60); GLUCOSE, FASTING 161 MG/DL (70-105); POTASSIUM SERUM 3.8 MEQ/L (3.5-5.1); SODIUM LEVEL 140 MEQ/L (136-145)
[2017-01-16] MEDS ORDERED: ISOVUE-370 76% 100ML VIAL (Q9967) As Ordered ONE (16:51)
--- NOTE | 2017-01-16 17:41 | REP ---
Clinical: Chest pain . Technique: Axial contrast enhanced images from the thoracic inlet to the upper abdomen using 100 ml Isovue 370 intravenous contrast material with multiplanar re-formations. Findings: Satisfactory enhancement of the pulmonary vasculature is achieved and no filling defects are identified to suggest pulmonary embolus. Further evaluation of the mediastinum demonstrates normal thoracic aorta, heart and pericardium. The bilateral lung frias are well aerated and clear without consolidation pleural effusion or pneumothorax. Tracheobronchial tree is patent. No nodule or mass lesion is identified. No adenopathy noted. Surrounding musculoskeletal structures intact Impression: No evidence for pulmonary embolus. No acute mediastinal or pleural parenchymal process. Signed by Grady Francis MD 01/16/2017 05:33 P
--- NOTE | 2017-01-16 18:15 | ECGEPIP ---
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
[2017-01-16] MEDS ORDERED: CALCIUM CARBONATE 500 MG CHEW U/D PO ONE (19:30)
[2017-01-16 20:54] VITALS: BP 118/62
--- NOTE | 2017-01-17 05:51 | ECGEPIP ---
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
== END 2017-01-16 20:56 | disposition home or self-care (01) ==
LOC: M ED 15:33
DX: R07.9 Chest pain, unspecified (principal); R10.9 Unspecified abdominal pain; E11.9 Type 2 diabetes mellitus without complications; G47.30 Sleep apnea, unspecified; F31.9 Bipolar disorder, unspecified; F41.9 Anxiety disorder, unspecified; K21.9 Gastro-esophageal reflux disease without esophagitis; K44.9 Diaphragmatic hernia without obstruction or gangrene; F17.200 Nicotine dependence, unspecified, uncomplicated; Z79.899 Other long term (current) drug therapy; Z88.6 Allergy status to analgesic agent
CPT/HCPCS: 71010; 71275; 80048; 80076; 82550; 82553; 83690; 83880; 84439; 84443; 84484; 85025; 85610; 85730; 93005; 93041; 93970; 94760; 96360; 96361; 99285; Q9967

== ENCOUNTER → 2017-03-14 | Outpatient (CLI) | payer MEDICARE, MEDICAID ==
[~2017-03-14] VITALS: Ht 167.6 cm; Wt 113.4 kg
[~2017-03-14] MED LIST changes: +ALBUTEROL SULFATE 2.5 MG/0.5 ML INH NEB SOLN As Ordered ONE; +LIDOCAINE 2% INJ 100 MG/5 ML SDV (FOR ANES.) As Ordered ONE; +NS 1,000 ML IV SCH; +PROPOFOL 200 MG/20 ML VIAL As Ordered ONE
--- NOTE | 2017-03-14 10:12 | ROOR ---
Patient Name: Glen Barlow Procedure Date: 03/14/2017 9:57 AM Date of : 1975 Age: 41 Room: [facility] Gender: Male Note Status: Finalized Procedure: Upper GI endoscopy Indications: Heartburn Providers: Ibrahima Horton MD Referring MD: González Villegas MD Requesting Provider: Medicines: Monitored Anesthesia Care Complications: No immediate complications. Procedure: Pre-Anesthesia Assessment: - Prior to the procedure, a History and Physical was performed, and patient medications and allergies were reviewed. The patient is competent. The risks and benefits of the procedure and the sedation options and risks were discussed with the patient. All questions were answered and informed consent was obtained. Patient identification and proposed procedure were verified by the physician, the nurse and the anesthesiologist in the endoscopy suite. Mental Status Examination: alert and oriented. Airway Examination: Initially had wheezing, given breathing treatment with improvement. Respiratory Examination: expiratory wheezes. CV Examination: normal. Prophylactic Antibiotics: The patient does not require prophylactic antibiotics. Prior Anticoagulants: The patient has taken no previous anticoagulant or antiplatelet agents. ASA Grade Assessment: III - A patient with severe systemic disease. After reviewing the risks and benefits, the patient was deemed in satisfactory condition to undergo the procedure. The anesthesia plan was to use monitored anesthesia care (MAC). Immediately prior to administration of medications, the patient was re-assessed for adequacy to receive sedatives. The heart rate, respiratory rate, oxygen saturations, blood pressure, adequacy of pulmonary ventilation, and response to care were monitored throughout the procedure. The physical status of the patient was re-assessed after the procedure. The Endoscope was introduced through the mouth, and advanced to the second part of duodenum. The upper GI endoscopy was accomplished without difficulty. The patient tolerated the procedure fairly well. Findings: The examined esophagus was normal. The Z-line was regular and was found 40 cm from the incisors. The entire examined stomach was normal. The second portion of the duodenum was normal. Impression: - Normal esophagus. - Z-line regular, 40 cm from the incisors. - Normal stomach. - Normal second portion of the duodenum. - No specimens collected. Recommendation: - Discharge patient to home (ambulatory). - Recommen weight loss, pursue workup for sleep apnea, elective umbilical hernia repair once optimized Ibrahima Horton MD Ibrahima Horton MD 03/14/2017 10:11:49 AM This report has been signed electronically. Number of Addenda: 0 Note Initiated On: 03/14/2017 9:57 AM Estimated Blood Loss: Estimated blood loss: none.
[2017-03-14 10:30] VITALS: BP 140/67
== END | disposition home or self-care (01) ==
LOC: M OPP 09:09
PROVIDERS: ATTEND Surgery
DX: R12 Heartburn (principal); K57.92 Diverticulitis of intestine, part unspecified, without perforation or abscess without bleeding; K21.0 Gastro-esophageal reflux disease with esophagitis; K42.9 Umbilical hernia without obstruction or gangrene; K44.9 Diaphragmatic hernia without obstruction or gangrene; R23.3 Spontaneous ecchymoses; M19.90 Unspecified osteoarthritis, unspecified site; M54.9 Dorsalgia, unspecified; F41.9 Anxiety disorder, unspecified; F32.9 Major depressive disorder, single episode, unspecified; F20.9 Schizophrenia, unspecified; J45.909 Unspecified asthma, uncomplicated; J44.9 Chronic obstructive pulmonary disease, unspecified; G47.30 Sleep apnea, unspecified; R06.83 Snoring; R06.02 Shortness of breath; R01.1 Cardiac murmur, unspecified; F17.210 Nicotine dependence, cigarettes, uncomplicated; Z88.8 Allergy status to other drugs, medicaments and biological substances; Z79.899 Other long term (current) drug therapy; Z80.1 Family history of malignant neoplasm of trachea, bronchus and lung; Z80.8 Family history of malignant neoplasm of other organs or systems

== ENCOUNTER → 2017-04-25 | Outpatient (REF) | payer MEDICARE, MEDICAID ==
[~2017-04-25] MED LIST changes: -ALBUTEROL SULFATE 2.5 MG/0.5 ML INH NEB SOLN As Ordered ONE; -APAP325T PO; +APAP325T4 PO; -BENZ200C44 PO; +BENZ200C53 PO; -CARA1TAB2 PO; +CARA1TAB6 PO; +CIPR-249 PO; -CIPR500T89 PO; +HYDR-3363 PO; -HYDR25T PO; -LIDOCAINE 2% INJ 100 MG/5 ML SDV (FOR ANES.) As Ordered ONE; -MUCI600T34 PO; +MUCI600T37 PO; -NS 1,000 ML IV SCH; -PROA1AER INH; +PROAAER10 INH; -PROPOFOL 200 MG/20 ML VIAL As Ordered ONE; +TRAZ-136 PO; -TRAZ100T4 PO; +TRAZ50TA11 PO; -TRAZ50TA4 PO
[2017-04-25 18:52] LABS: ALBUMIN 4.2 GM/DL (3.2-5.2); ALBUMIN/GLOBULIN RATIO 1.31 (1.00-1.93); ALKALINE PHOSPHATASE 94 U/L (45-117); ALT/SGPT 28 U/L (12-78); ANION GAP 9 MEQ/L (8-16); AST/SGOT 16 U/L (15-37); BILIRUBIN,TOTAL 0.7 MG/DL (0.2-1.0); BLOOD UREA NITROGEN 11 MG/DL (7-18); CALCIUM LEVEL 9.7 MG/DL (8.5-10.1); CARBON DIOXIDE LEVEL 27 MEQ/L (21-32); CHLORIDE LEVEL 102 MEQ/L (98-107); CREATININE FOR GFR 1.06 MG/DL (0.70-1.30); GLOMERULAR FILTRATION RATE > 60.0 (>60); GLUCOSE, FASTING 134 MG/DL (70-105); POTASSIUM SERUM 4.1 MEQ/L (3.5-5.1); SODIUM LEVEL 138 MEQ/L (136-145); TOTAL PROTEIN 7.4 GM/DL (6.4-8.2)
[2017-04-25 19:25] LABS: MEAN CORPUSCULAR HGB CONC 35.6 g/dl (32.0-36.5); RED CELL DISTRIBUTION WIDTH 12.2 % (11.5-14.5); WHITE BLOOD COUNT 8.9 K/mm3 (4.0-10.0)
== END ==
LOC: M SFHCADAM 14:33
PROVIDERS: ATTEND Physician Assistant
DX: Z01.818 Encounter for other preprocedural examination (principal); K42.9 Umbilical hernia without obstruction or gangrene; J42 Unspecified chronic bronchitis

== ENCOUNTER → 2017-04-25 | Outpatient (CLI) | payer MEDICARE, MEDICAID ==
--- NOTE | 2017-04-25 15:37 | REP ---
Clinical: Preoperative assessment . Comparison: None . Technique: PA and lateral. Findings: The mediastinum and cardiac silhouette are normal. Airway is midline and patent. The lung frias are clear and without acute consolidation, effusion, or pneumothorax. The skeletal structures are intact and normal. Impression: 1. No acute cardiopulmonary process. Signed by Grady Francis MD 04/25/2017 03:29 P
== END ==
LOC: M ADAMS 14:37
PROVIDERS: ATTEND Physician Assistant
DX: Z01.818 Encounter for other preprocedural examination (principal); K42.9 Umbilical hernia without obstruction or gangrene; J42 Unspecified chronic bronchitis
CPT/HCPCS: 71020; 80053; 85027; G0463

== ENCOUNTER → 2017-05-18 | Outpatient (CLI) | payer MEDICARE, MEDICAID ==
--- NOTE | 2017-05-23 18:35 | SLEEPCENT ---
DATE OF PROCEDURE: 05/18/2017 ORDERED BY: Sally Ashley Nocturnal polysomnography was performed due to concern for the obstructive sleep apnea syndrome in this patient with a history of nonrestorative sleep. 7 hours and 24 minutes of data were reviewed. There were 381 minutes of sleep identified. Sleep latency was normal at 11 minutes. Rapid eye movement (REM) latency was normal at 69 minutes. Sleep architecture initially showed severe fragmentation. Overall sleep efficiency improved after interventions to 86%. Patient's EKG showed a sinus rhythm with an average heart rate of 82 beats per minute. Rate variability was seen surrounding respiratory events. EEG showed normal wave forms for wake and sleep. There were 223 respiratory events identified of 10 seconds in duration or greater for an apnea-hypopnea index of 35.1. Having clearly identified the obstructive sleep apnea syndrome, early in the test, the study was stopped shortly before midnight for the application of pressure therapy. Patient was fit with a ResMed Air Fit F-T10 full face mask of medium size. 4 cm of water pressure were applied to the circuit and the lights were extinguished. Throughout the remaining hours of testing, pressure titration was performed to an optimal pressure of +14, with which the patient slept through REM without respiratory event or oxygen desaturation. Some snoring was noted but there was evidence for REM rebound as well. There was some limb activity identified but arousals limb events were few. IMPRESSION: Severe obstructive sleep apnea syndrome (G47.33). Apnea-hypopnea index 35.1. RECOMMENDATIONS: Nightly use of pressure therapy, 14 cm of water.
== END ==
LOC: M SLEEP 19:42
PROVIDERS: ATTEND Nurse Practitioner Adult Health
DX: G47.33 Obstructive sleep apnea (adult) (pediatric) (principal)

== ENCOUNTER → 2017-10-03 | Outpatient (CLI) | payer MEDICARE, MEDICAID ==
--- NOTE | 2017-10-05 10:09 | SLEEPCENT ---
DATE OF STUDY: 10/03/2017 ORDERED BY: Sally Ashley Nocturnal polysomnography was performed for retitration of pressure therapy in this patient with severe obstructive sleep apnea syndrome. For testing, a ResMed Quattro Mirage full face mask of medium size was used. 14 cm of water pressure was initially applied to the circuit and the lights were extinguished. 7 hours and 16 minutes of data were reviewed. There were 360 minutes of sleep identified. Sleep latency was normal at 11 minutes. Rapid eye movement (REM) latency was delayed at 100 minutes. Sleep architecture showed fair progression. There were 2 REM cycles noted. Overall sleep efficiency was 83%. The patient's electrocardiogram (EKG) showed a sinus rhythm with wandering baseline. Electroencephalogram (EEG) showed reasonably normal waveforms for awake and sleep. Persistent hypopneic respiratory events prompted an increase in CPAP pressure. Best sleep was seen on a CPAP pressure of 16. Remaining measures of sleep physiology were normal. IMPRESSION: Obstructive sleep apnea syndrome (G47.33). RECOMMENDATION: Nightly use of pressure therapy at 16 cm of water.
== END ==
LOC: M SLEEP 19:41
PROVIDERS: ATTEND Nurse Practitioner Adult Health
DX: G47.33 Obstructive sleep apnea (adult) (pediatric) (principal)

== ENCOUNTER → 2017-10-31 | Outpatient (CLI) | payer MEDICARE, MEDICAID ==
[2017-10-31 09:48] LABS: HEMATOCRIT 47.2 % (42.0-52.0); HEMOGLOBIN 16.9 g/dl (14.0-18.0); MEAN CORPUSCULAR HEMOGLOBIN 33.7 pg (27.0-33.0); MEAN CORPUSCULAR HGB CONC 35.8 g/dl (32.0-36.5); MEAN CORPUSCULAR VOLUME 94.2 fl (80.0-96.0); PLATELET COUNT, AUTOMATED 245 10^3/uL (150-450); RED BLOOD COUNT 5.01 10^6/uL (4.30-6.10); RED CELL DISTRIBUTION WIDTH 11.7 % (11.5-14.5); WHITE BLOOD COUNT 7.9 10^3/uL (4.0-10.0)
[2017-10-31 10:09] LABS: ESTIMATED AVERAGE GLUCOSE 163 MG/DL (60-110); HEMOGLOBIN A1c 7.3 %
[2017-10-31 10:16] LABS: ALBUMIN 3.9 GM/DL (3.2-5.2); ALBUMIN/GLOBULIN RATIO 1.11 (1.00-1.93); ALKALINE PHOSPHATASE 105 U/L (45-117); ALT/SGPT 35 U/L (12-78); ANION GAP 5 MEQ/L (8-16); AST/SGOT 18 U/L (7-37); BILIRUBIN,TOTAL 0.4 MG/DL (0.2-1.0); BLOOD UREA NITROGEN 18 MG/DL (7-18); CALCIUM LEVEL 8.8 MG/DL (8.5-10.1); CARBON DIOXIDE LEVEL 32 MEQ/L (21-32); CHLORIDE LEVEL 103 MEQ/L (98-107); CREATININE FOR GFR 0.92 MG/DL (0.70-1.30); GLOMERULAR FILTRATION RATE > 60.0 (>60); GLUCOSE, FASTING 170 MG/DL (70-105); POTASSIUM SERUM 4.3 MEQ/L (3.5-5.1); SODIUM LEVEL 140 MEQ/L (136-145); TOTAL PROTEIN 7.4 GM/DL (6.4-8.2)
[2017-10-31 11:25] LABS: TOTAL 25(OH) VITAMIN D 37.6 NG/ML (30.0-100.0)
== END ==
LOC: M LAB 09:05
DX: R73.9 Hyperglycemia, unspecified (principal); E55.9 Vitamin D deficiency, unspecified; E66.01 Morbid (severe) obesity due to excess calories; F17.210 Nicotine dependence, cigarettes, uncomplicated
CPT/HCPCS: 80053

== ENCOUNTER 2017-11-17 15:16 | Emergency (ER) | payer MEDICARE, MEDICAID ==
[2017-11-17] MEDS: PERCOCET 5MG/325MG TAB PO (18:05)
== END 2017-11-17 18:11 | disposition home or self-care (01) ==
LOC: M ED 15:16
DX: K02.9 Dental caries, unspecified (principal); K08.89 Other specified disorders of teeth and supporting structures; R68.84 Jaw pain; R56.9 Unspecified convulsions; J44.9 Chronic obstructive pulmonary disease, unspecified; J45.909 Unspecified asthma, uncomplicated; G47.30 Sleep apnea, unspecified; K21.9 Gastro-esophageal reflux disease without esophagitis; K44.9 Diaphragmatic hernia without obstruction or gangrene; M54.9 Dorsalgia, unspecified; F41.9 Anxiety disorder, unspecified; F32.9 Major depressive disorder, single episode, unspecified; F20.9 Schizophrenia, unspecified; F17.200 Nicotine dependence, unspecified, uncomplicated; Z79.899 Other long term (current) drug therapy; Z88.6 Allergy status to analgesic agent
CPT/HCPCS: 99283

== ENCOUNTER → 2018-04-16 | Outpatient (REF) | payer MEDICARE, MEDICAID ==
[2018-04-16 20:35] LABS: ESTIMATED AVERAGE GLUCOSE 151 MG/DL (60-110); HEMOGLOBIN A1c 6.9 %
[2018-04-16 20:48] LABS: ANION GAP 9 MEQ/L (8-16); BLOOD UREA NITROGEN 13 MG/DL (7-18); CALCIUM LEVEL 8.8 MG/DL (8.5-10.1); CARBON DIOXIDE LEVEL 27 MEQ/L (21-32); CHLORIDE LEVEL 106 MEQ/L (98-107); CHOLESTEROL LEVEL 135 MG/DL (<200); CHOLESTEROL RISK RATIO 5.869 (<5); FERRITIN 62 NG/ML (26-388); FREE T4 1.33 NG/DL (0.76-1.46); GLOMERULAR FILTRATION RATE > 60.0 (>60); GLUCOSE, FASTING 166 MG/DL (70-100); HDL CHOLESTEROL 23 MG/DL (>40); LDL CHOLESTEROL 41.6 MG/DL (<100); NON-HDL-C 112 MG/DL; POTASSIUM SERUM 4.1 MEQ/L (3.5-5.1); SODIUM LEVEL 142 MEQ/L (136-145); TRIGLYCERIDES LEVEL 352 MG/DL (<150)
[2018-04-16 20:53] LABS: MAU/CREAT RATIO 77.8 MCG/MG (0.0-30.0)
== END ==
LOC: M SFHCADAM 16:52
DX: E11.9 Type 2 diabetes mellitus without complications (principal); F17.200 Nicotine dependence, unspecified, uncomplicated
CPT/HCPCS: 84443

== ENCOUNTER 2018-05-21 18:53 | Emergency (ER) | payer MEDICARE, MEDICAID ==
[2018-05-21] MEDS: ONDANSETRON 4MG/2ML VIAL (J2405) IV (19:30)
[2018-05-21] MEDS: NS 1,000 ML IV (19:30)
[2018-05-21] MEDS: PANTOPRAZOLE 40MG INJ (PROTONIX) (C9113) IV (19:30)
[2018-05-21 19:33] LABS: BASO % 0.2 % (0.0-1.0); EOS # 0.1 10^3/uL (0.0-0.50); EOS % 0.7 % (0.0-3.0); HEMATOCRIT 46.4 % (42.0-52.0); HEMOGLOBIN 16.5 g/dl (13.5-17.5); IMMATURE GRANULOCYTE % 0.6 % (0-3.0); LYMPH # 2.1 10^3/uL (1.5-4.5); LYMPH % 16.7 % (24.0-44.0); MEAN CORPUSCULAR HEMOGLOBIN 34.4 pg (27.0-33.0); MEAN CORPUSCULAR HGB CONC 35.6 g/dl (32.0-36.5); MEAN CORPUSCULAR VOLUME 96.9 fl (80.0-96.0); MONO # 1.2 10^3/uL (0.0-0.8); MONO % 10.1 % (0.0-5.0); NEUTROPHILS # 8.8 10^3/uL (1.8-7.7); NEUTROPHILS % 71.7 % (36.0-66.0); PLATELET COUNT, AUTOMATED 452 10^3/uL (150-450); RED BLOOD COUNT 4.79 10^6/uL (4.30-6.10); RED CELL DISTRIBUTION WIDTH 12.1 % (11.5-14.5); WHITE BLOOD COUNT 12.3 10^3/uL (4.0-10.0)
[2018-05-21 19:37] LABS: INR 1.04; PROTHROMBIN TIME 13.7 SECONDS (12.1-14.4)
[2018-05-21 19:38] LABS: PARTIAL THROMBOPLASTIN TIME 36.1 SECONDS (25.4-37.6)
[2018-05-21 19:47] LABS: ALBUMIN 3.6 GM/DL (3.2-5.2); ALBUMIN/GLOBULIN RATIO 0.75 (1.00-1.93); ALKALINE PHOSPHATASE 89 U/L (45-117); ALT/SGPT 16 U/L (12-78); ANION GAP 13 MEQ/L (8-16); AST/SGOT 9 U/L (7-37); BILIRUBIN,DIRECT 0.2 MG/DL (0.0-0.2); BILIRUBIN,TOTAL 0.7 MG/DL (0.2-1.0); BLOOD UREA NITROGEN 16 MG/DL (7-18); CALCIUM LEVEL 9.8 MG/DL (8.5-10.1); CARBON DIOXIDE LEVEL 25 MEQ/L (21-32); CHLORIDE LEVEL 98 MEQ/L (98-107); CPK CREATINE PHOSPHOKINASE 60 U/L (39-308); CREATININE FOR GFR 1.16 MG/DL (0.70-1.30); FREE T4 1.43 NG/DL (0.76-1.46); GLOMERULAR FILTRATION RATE > 60.0 (>60); GLUCOSE, FASTING 143 MG/DL (70-100); LIPASE 98 U/L (73-393); POTASSIUM SERUM 4.2 MEQ/L (3.5-5.1); SODIUM LEVEL 136 MEQ/L (136-145); TOTAL PROTEIN 8.4 GM/DL (6.4-8.2); TROPONIN I < 0.02 NG/ML (< 0.10)
[2018-05-21] MEDS: MORPHINE 4 MG/ML 1ML VIAL/SYRINGE (J2270) IV (19:52)
[2018-05-21 19:53] LABS: CK-MB VALUE MASS < 1.0 NG/ML (<3.6); MB/CK RELATIVE INDEX 1.66 (< OR =4); NT-PRO BNP 118 PG/ML (<125)
[2018-05-21] MEDS: GI COCKTAIL 50ML BTL(HYOSCYAMINE/MAALOX/LIDOCAINE VISCOUS)(1:3:1) PO (20:10)
[2018-05-21] MEDS ORDERED: ISOVUE-370 76% 100ML VIAL (Q9967) As Ordered (20:22)
[2018-05-21 20:52] LABS: LACTIC ACID SEPSIS PROTOCOL 1.6 MMOL/L (0.4-2.0)
[2018-05-21 23:58] LABS: CK-MB VALUE MASS < 1.0 NG/ML (<3.6); CPK CREATINE PHOSPHOKINASE 62 U/L (39-308); MB/CK RELATIVE INDEX 1.61 (< OR =4); TROPONIN I < 0.02 NG/ML (< 0.10)
== END 2018-05-22 00:35 | disposition home or self-care (01) ==
LOC: M ED 05-22 00:35
DX: K29.70 Gastritis, unspecified, without bleeding (principal); R00.0 Tachycardia, unspecified; E11.9 Type 2 diabetes mellitus without complications; K21.9 Gastro-esophageal reflux disease without esophagitis; J45.909 Unspecified asthma, uncomplicated; K57.92 Diverticulitis of intestine, part unspecified, without perforation or abscess without bleeding; F17.210 Nicotine dependence, cigarettes, uncomplicated; Z88.6 Allergy status to analgesic agent; Z79.899 Other long term (current) drug therapy
CPT/HCPCS: C9113

== ENCOUNTER → 2018-05-30 | Outpatient (REF) | payer MEDICARE, MEDICAID | LOC: M LAB REF 17:25 | DX: S01.80XA Unspecified open wound of other part of head, initial encounter (principal); X58.XXXA Exposure to other specified factors, initial encounter; Y92.9 Unspecified place or not applicable; Y93.9 Activity, unspecified; Y99.9 Unspecified external cause status | CPT/HCPCS: 87186 ==

== ENCOUNTER → 2018-07-22 | Outpatient (REF) | payer MEDICARE, MEDICAID ==
[2018-07-22 19:34] LABS: BASO # 0.1 10^3/uL (0.0-0.2); BASO % 0.5 % (0.0-1.0); EOS # 0.3 10^3/uL (0.0-0.50); EOS % 2.7 % (0.0-3.0); HEMATOCRIT 46.8 % (42.0-52.0); HEMOGLOBIN 16.6 g/dl (13.5-17.5); IMMATURE GRANULOCYTE % 0.2 % (0-3.0); LYMPH # 2.2 10^3/uL (1.5-4.5); LYMPH % 22.2 % (24.0-44.0); MEAN CORPUSCULAR HEMOGLOBIN 33.9 pg (27.0-33.0); MEAN CORPUSCULAR HGB CONC 35.5 g/dl (32.0-36.5); MEAN CORPUSCULAR VOLUME 95.7 fl (80.0-96.0); MONO # 0.8 10^3/uL (0.0-0.8); MONO % 8.7 % (0.0-5.0); NEUTROPHILS # 6.4 10^3/uL (1.8-7.7); NEUTROPHILS % 65.7 % (36.0-66.0); PLATELET COUNT, AUTOMATED 294 10^3/uL (150-450); RED BLOOD COUNT 4.89 10^6/uL (4.30-6.10); RED CELL DISTRIBUTION WIDTH 12.8 % (11.5-14.5); WHITE BLOOD COUNT 9.7 10^3/uL (4.0-10.0)
[2018-07-22 19:40] LABS: C REACTIVE PROTEIN QUANTITATIV 0.93 MG/DL (0.00-0.30)
[2018-07-22 20:23] LABS: ERYTHROCYTE SEDIMENTATION RATE 9 mm/hr (0-15)
== END ==
LOC: M SFHCADAM 14:21
DX: L03.211 Cellulitis of face (principal)
CPT/HCPCS: 86140

== ENCOUNTER → 2018-09-05 | Outpatient (REF) | payer MEDICARE, MEDICAID ==
[2018-09-05 13:11] LABS: HEMATOCRIT 47.3 % (42.0-52.0); HEMOGLOBIN 16.6 g/dl (13.5-17.5); MEAN CORPUSCULAR HEMOGLOBIN 33.1 pg (27.0-33.0); MEAN CORPUSCULAR HGB CONC 35.1 g/dl (32.0-36.5); MEAN CORPUSCULAR VOLUME 94.2 fl (80.0-96.0); PLATELET COUNT, AUTOMATED 249 10^3/uL (150-450); RED BLOOD COUNT 5.02 10^6/uL (4.30-6.10); RED CELL DISTRIBUTION WIDTH 12.2 % (11.5-14.5); WHITE BLOOD COUNT 9.1 10^3/uL (4.0-10.0)
[2018-09-05 13:14] LABS: ALBUMIN 4.1 GM/DL (3.2-5.2); ALBUMIN/GLOBULIN RATIO 1.28 (1.00-1.93); ALKALINE PHOSPHATASE 102 U/L (45-117); ALT/SGPT 32 U/L (12-78); ANION GAP 5 MEQ/L (8-16); AST/SGOT 20 U/L (7-37); BILIRUBIN,TOTAL 0.5 MG/DL (0.2-1.0); BLOOD UREA NITROGEN 12 MG/DL (7-18); CALCIUM LEVEL 9.1 MG/DL (8.5-10.1); CARBON DIOXIDE LEVEL 31 MEQ/L (21-32); CHLORIDE LEVEL 101 MEQ/L (98-107); CHOLESTEROL LEVEL 100 MG/DL (<200); CREATININE FOR GFR 1.04 MG/DL (0.70-1.30); GLOMERULAR FILTRATION RATE > 60.0 (>60); GLUCOSE, FASTING 140 MG/DL (70-100); HDL CHOLESTEROL 33 MG/DL (>40); LDL CHOLESTEROL 28 MG/DL (<100); NON-HDL-C 67 MG/DL; POTASSIUM SERUM 4.3 MEQ/L (3.5-5.1); SODIUM LEVEL 137 MEQ/L (136-145); TOTAL PROTEIN 7.3 GM/DL (6.4-8.2); TRIGLYCERIDES LEVEL 194 MG/DL (<150)
[2018-09-05 13:22] LABS: TOTAL 25(OH) VITAMIN D 32.5 NG/ML (30.0-100.0)
[2018-09-05 13:44] LABS: ESTIMATED AVERAGE GLUCOSE 146 MG/DL (60-110); HEMOGLOBIN A1c 6.7 %
== END ==
LOC: M SFHCADAM 08:49
DX: E78.2 Mixed hyperlipidemia (principal); E11.9 Type 2 diabetes mellitus without complications; F17.200 Nicotine dependence, unspecified, uncomplicated; M25.572 Pain in left ankle and joints of left foot; Z79.899 Other long term (current) drug therapy
CPT/HCPCS: 80053

== ENCOUNTER → 2018-09-05 | Outpatient (CLI) | payer MEDICARE, MEDICAID | LOC: M ADAMS 08:53 | DX: M25.572 Pain in left ankle and joints of left foot (principal); M72.2 Plantar fascial fibromatosis; Z23 Encounter for immunization; E11.9 Type 2 diabetes mellitus without complications; G89.29 Other chronic pain; E78.2 Mixed hyperlipidemia; F17.200 Nicotine dependence, unspecified, uncomplicated | CPT/HCPCS: 73610; 80053 ==

== ENCOUNTER → 2018-12-04 | Outpatient (REF) | payer MEDICARE, MEDICAID ==
[~2018-12-04] MED LIST changes: +ACID1TAB10 PO; +AMOX500C; +ATOR40TA75 PO; -BENZ200C53 PO; +BENZ200C70 PO; +BUPR300T34 PO; +BUSP30TA PO; +CYMB60CA3 PO; -DOXY-278 PO; +DOXY-350 PO; +GEOD40CA13 PO; -GEOD40CA2 PO; +HYDR-3363; +HYDRO50TAB PO; +INCR1INH INH; +METF10004 PO; +NORCOTAB PO; +OMEP-221 PO; +PERI12LIQ; +PRAM0.255; +PRAM1TAB7 PO; +RANI150T PO; +SUCR1TA PO; -TRAZ-136 PO; +TRAZ-160 PO; +TRAZ-163 PO; -TRAZ50TA11 PO; +ZIPR60CA11 PO; +[UNRECOGNIZED DRUG - OTHER] INH
[2018-12-04 20:08] LABS: ALBUMIN 3.9 GM/DL (3.2-5.2); ALT/SGPT 25 U/L (12-78); APPEARANCE, URINE CLEAR (CLEAR); BACTERIA, URINE AUTO NEGATIVE (NEGATIVE); BILIRUBIN, URINE AUTO NEGATIVE (NEGATIVE); BILIRUBIN,TOTAL 0.3 MG/DL (0.2-1.0); BLOOD UREA NITROGEN 10 MG/DL (7-18); BLOOD, URINE BLOOD 1+ (NEGATIVE); CARBON DIOXIDE LEVEL 33 MEQ/L (21-32); CHLORIDE LEVEL 101 MEQ/L (98-107); COLOR, URINE YELLOW (YELLOW); CREATININE FOR GFR 0.93 MG/DL (0.70-1.30); GLOMERULAR FILTRATION RATE > 60.0 (>60); GLUCOSE, FASTING 185 MG/DL (70-100); GLUCOSE, URINE (UA) AUTO NEGATIVE (NEGATIVE); KETONE, URINE AUTO NEGATIVE (NEGATIVE); LEUKOCYTE ESTERASE, URINE AUTO NEGATIVE (NEGATIVE); MUCUS, URINE SMALL (NEGATIVE); NITRITE, URINE AUTO NEGATIVE (NEGATIVE); POTASSIUM SERUM 4.1 MEQ/L (3.5-5.1); PROTEIN, URINE AUTO NEGATIVE (NEGATIVE); RBC, URINE AUTO 4 /HPF (0-3); SODIUM LEVEL 139 MEQ/L (136-145); SPECIFIC GRAVITY URINE AUTO 1.008 (1.002-1.035); SQUAMOUS EPITHELIAL CELL UR AU 0 /HPF (0-6); TOTAL PROTEIN 7.1 GM/DL (6.4-8.2); UROBILINOGEN, URINE AUTO 0.2 mg/dL (0.0-2.0); WBC, URINE AUTO 0 /HPF (0-3)
[2018-12-04 20:09] LABS: HEMATOCRIT 47.7 % (42.0-52.0); HEMOGLOBIN 16.8 g/dl (13.5-17.5); MEAN CORPUSCULAR HEMOGLOBIN 33.5 pg (27.0-33.0); MEAN CORPUSCULAR HGB CONC 35.2 g/dl (32.0-36.5); PLATELET COUNT, AUTOMATED 224 10^3/uL (150-450); RED BLOOD COUNT 5.02 10^6/uL (4.30-6.10)
[2018-12-04 20:28] LABS: CREATININE, URINE 72.1 MG/DL; MALB URINE SIEMENS 12.2 MG/L; MAU/CREAT RATIO 16.9 MCG/MG (0.0-30.0)
== END ==
LOC: M SFHCADAM 13:31
PROVIDERS: ATTEND Physician Assistant
DX: R31.0 Gross hematuria (principal); E11.9 Type 2 diabetes mellitus without complications; F17.210 Nicotine dependence, cigarettes, uncomplicated
CPT/HCPCS: 80053; 81001; 82043; 83036; 85027; 87086; 99406; G0463

== ENCOUNTER → 2019-01-10 | Outpatient (REF) | payer MEDICARE, MEDICAID ==
[2019-01-10 14:20] LABS: APPEARANCE, URINE CLEAR (CLEAR); BACTERIA, URINE AUTO NEGATIVE (NEGATIVE); BILIRUBIN, URINE AUTO NEGATIVE (NEGATIVE); BLOOD, URINE BLOOD 1+ (NEGATIVE); COLOR, URINE YELLOW (YELLOW); GLUCOSE, URINE (UA) AUTO NEGATIVE (NEGATIVE); KETONE, URINE AUTO TRACE mg/dL (NEGATIVE); LEUKOCYTE ESTERASE, URINE AUTO NEGATIVE (NEGATIVE); NITRITE, URINE AUTO NEGATIVE (NEGATIVE); PROTEIN, URINE AUTO NEGATIVE (NEGATIVE); RBC, URINE AUTO 1 /HPF (0-3); SPECIFIC GRAVITY URINE AUTO 1.018 (1.002-1.035); SQUAMOUS EPITHELIAL CELL UR AU 0 /HPF (0-6); WBC, URINE AUTO 1 /HPF (0-3)
== END ==
LOC: M SMT 13:09
PROVIDERS: ATTEND Nurse Practitioner Family
DX: R31.0 Gross hematuria (principal)

== ENCOUNTER → 2019-02-13 | Outpatient (CLI) | payer MEDICARE, MEDICAID ==
[~2019-02-13] MED LIST changes: +HYDR-3715 PO; +ISOVUE-370 76% 100ML VIAL (Q9967) As Ordered ONE; -NORCOTAB PO
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
== END ==
LOC: M RAD 10:15
PROVIDERS: ATTEND Nurse Practitioner Family
DX: R31.0 Gross hematuria (principal); K44.9 Diaphragmatic hernia without obstruction or gangrene; K57.30 Diverticulosis of large intestine without perforation or abscess without bleeding; R91.8 Other nonspecific abnormal finding of lung field
CPT/HCPCS: 74178; Q9967

== ENCOUNTER → 2019-06-10 | Outpatient (REF) | payer MEDICARE, MEDICAID ==
[~2019-06-10] MED LIST changes: +HYDR1TAB33 PO; -HYDRO50TAB PO; -ISOVUE-370 76% 100ML VIAL (Q9967) As Ordered ONE; -TRAZ-160 PO; +TRAZ-252 PO
[2019-06-10 19:47] LABS: HEMATOCRIT 43.9 % (42.0-52.0); HEMOGLOBIN 15.3 g/dl (13.5-17.5); MEAN CORPUSCULAR HEMOGLOBIN 32.6 pg (27.0-33.0); MEAN CORPUSCULAR HGB CONC 34.9 g/dl (32.0-36.5); MEAN CORPUSCULAR VOLUME 93.6 fl (80.0-96.0); PLATELET COUNT, AUTOMATED 254 10^3/uL (150-450); RED BLOOD COUNT 4.69 10^6/uL (4.30-6.10); WHITE BLOOD COUNT 7.7 10^3/uL (4.0-10.0)
[2019-06-10 20:08] LABS: ALBUMIN 3.9 GM/DL (3.2-5.2); ALT/SGPT 34 U/L (12-78); BILIRUBIN,TOTAL 0.6 MG/DL (0.2-1.0); BLOOD UREA NITROGEN 14 MG/DL (7-18); CALCIUM LEVEL 9.2 MG/DL (8.5-10.1); CARBON DIOXIDE LEVEL 29 MEQ/L (21-32); CHLORIDE LEVEL 104 MEQ/L (98-107); CREATININE FOR GFR 1.01 MG/DL (0.70-1.30); FREE T4 1.18 NG/DL (0.76-1.46); GLOMERULAR FILTRATION RATE > 60.0 (>60); GLUCOSE, FASTING 168 MG/DL (70-100); POTASSIUM SERUM 4.2 MEQ/L (3.5-5.1); SODIUM LEVEL 139 MEQ/L (136-145); TOTAL PROTEIN 6.9 GM/DL (6.4-8.2)
[2019-06-10 20:20] LABS: HEMOGLOBIN A1c 7.7 %
== END ==
LOC: M SFHCADAM 15:24
PROVIDERS: ATTEND Physician Assistant
DX: E11.9 Type 2 diabetes mellitus without complications (principal); F17.210 Nicotine dependence, cigarettes, uncomplicated; E78.2 Mixed hyperlipidemia
CPT/HCPCS: 80053; 83036; 84439; 84443; 85027; G0463

== ENCOUNTER → 2019-12-16 | Outpatient (CLI) | payer MEDICARE, MEDICAID ==
[~2019-12-16] MED LIST changes: -BUPR300T34 PO; +BUPR300T92 PO; -OMEP40CA2 PO; +OMEP40CA97 PO; -TRAZ-163 PO; +TRAZ-257 PO
--- NOTE | 2019-12-16 17:55 | REP ---
LEFT ANKLE, SIX VIEWS: There is no evidence of an acute fracture, dislocation or intrinsic bone disease. The ankle mortise is anatomic. There is no calcaneal spurring. IMPRESSION: No fracture or dislocation. Electronically Signed by Richard Ramírez MD 12/16/2019 08:23 P
--- NOTE | 2019-12-16 18:13 | REP ---
RIGHT LOWER LEG, AP AND LATERAL: There is no evidence of an acute fracture, dislocation or intrinsic bone disease. IMPRESSION: No fracture or dislocation. Electronically Signed by Richard Ramírez MD 12/16/2019 08:23 P
== END ==
LOC: M ADAMS 15:31
PROVIDERS: ATTEND Family Medicine
DX: M25.572 Pain in left ankle and joints of left foot (principal); M89.8X6 Other specified disorders of bone, lower leg; E11.9 Type 2 diabetes mellitus without complications; D75.89 Other specified diseases of blood and blood-forming organs; E78.2 Mixed hyperlipidemia
CPT/HCPCS: 73590; 73610; 80053; 80061; 82043; 82607; 82746; 83036; 84439; 84443; 85027; G0463

== ENCOUNTER → 2019-12-16 | Outpatient (REF) | payer MEDICARE, MEDICAID ==
[2019-12-16 20:38] LABS: HEMATOCRIT 51.6 % (42.0-52.0); HEMOGLOBIN 17.3 g/dl (13.5-17.5); MEAN CORPUSCULAR HEMOGLOBIN 31.7 pg (27.0-33.0); MEAN CORPUSCULAR HGB CONC 33.5 g/dl (32.0-36.5); MEAN CORPUSCULAR VOLUME 94.7 fl (80.0-96.0); PLATELET COUNT, AUTOMATED 264 10^3/uL (150-450); RED BLOOD COUNT 5.45 10^6/uL (4.30-6.10); WHITE BLOOD COUNT 8.8 10^3/uL (4.0-10.0)
[2019-12-16 20:59] LABS: HEMOGLOBIN A1c 6.7 %
[2019-12-16 21:08] LABS: ALBUMIN 4.3 GM/DL (3.2-5.2); ALT/SGPT 25 U/L (12-78); BILIRUBIN,TOTAL 0.3 MG/DL (0.2-1.0); BLOOD UREA NITROGEN 15 MG/DL (7-18); CALCIUM LEVEL 9.1 MG/DL (8.5-10.1); CARBON DIOXIDE LEVEL 27 MEQ/L (21-32); CHLORIDE LEVEL 101 MEQ/L (98-107); CHOLESTEROL LEVEL 113 MG/DL (<200); CREATININE FOR GFR 1.18 MG/DL (0.70-1.30); FOLATE 7.8 NG/ML (>5.4); FREE T4 1.26 NG/DL (0.76-1.46); GLOMERULAR FILTRATION RATE > 60.0 (>60); GLUCOSE, FASTING 95 MG/DL (70-100); HDL CHOLESTEROL 25 MG/DL (>40); NON-HDL-C 88 MG/DL; POTASSIUM SERUM 3.9 MEQ/L (3.5-5.1); SODIUM LEVEL 135 MEQ/L (136-145); TOTAL PROTEIN 7.6 GM/DL (6.4-8.2); TRIGLYCERIDES LEVEL 474 MG/DL (<150); VITAMIN B12 LEVEL 319 PG/ML (247-911)
[2019-12-16 21:18] LABS: MALB URINE SIEMENS 50.4 MG/L; MAU/CREAT RATIO 41.3 MCG/MG (0.0-30.0)
== END ==
LOC: M SFHCADAM 15:20
PROVIDERS: ATTEND Family Medicine
DX: E11.9 Type 2 diabetes mellitus without complications (principal); D75.89 Other specified diseases of blood and blood-forming organs; E78.2 Mixed hyperlipidemia

== ENCOUNTER 2020-04-24 20:32 | Inpatient (IN) | payer MEDICARE, MEDICAID ==
[~2020-04-24] VITALS: Ht 167.6 cm; Wt 125.8 kg
[2020-04-24] MEDS ORDERED: COMBIVENT RESPIMAT 100-20MCG INHALER 4GM INH STA (20:48)
[2020-04-24] MEDS: HumaLOG INSULIN (NovoLOG) PER UNIT SC SCH (21:00)
[2020-04-24] MEDS ORDERED: methylPREDNISolone 125MG 2ML VIAL IV ONE (21:00)
[2020-04-24] MEDS ORDERED: ACETAMINOPHEN 325 MG TAB PO ONE (21:00)
[2020-04-24 21:21] LABS: BASO % 0.2 % (0.0-1.0); HEMATOCRIT 42.6 % (42.0-52.0); HEMOGLOBIN 14.7 g/dl (13.5-17.5); MEAN CORPUSCULAR HEMOGLOBIN 32.4 pg (27.0-33.0); MEAN CORPUSCULAR HGB CONC 34.5 g/dl (32.0-36.5); MEAN CORPUSCULAR VOLUME 93.8 fl (80.0-96.0); MONO # 0.8 10^3/uL (0.0-0.8); MONO % 4.9 % (0.0-5.0); NEUTROPHILS # 14.9 10^3/uL (1.5-8.5); NEUTROPHILS % 88.5 % (36.0-66.0); PLATELET COUNT, AUTOMATED 202 10^3/uL (150-450); RED BLOOD COUNT 4.54 10^6/uL (4.30-6.10); WHITE BLOOD COUNT 16.8 10^3/uL (4.0-10.0)
[2020-04-24 21:54] LABS: ERYTHROCYTE SEDIMENTATION RATE 25 mm/hr (0-15)
[2020-04-24 22:06] LABS: ALBUMIN 3.4 GM/DL (3.2-5.2); ALT/SGPT 23 U/L (12-78); BILIRUBIN,DIRECT 0.1 MG/DL (0.0-0.2); BILIRUBIN,TOTAL 0.5 MG/DL (0.2-1.0); BLOOD UREA NITROGEN 11 MG/DL (7-18); CALCIUM LEVEL 8.4 MG/DL (8.5-10.1); CARBON DIOXIDE LEVEL 26 MEQ/L (21-32); CHLORIDE LEVEL 98 MEQ/L (98-107); CK-MB VALUE MASS < 1.0 NG/ML (<3.6); CPK CREATINE PHOSPHOKINASE 89 U/L (39-308); CREATININE FOR GFR 1.22 MG/DL (0.70-1.30); GLOMERULAR FILTRATION RATE > 60.0 (>60); GLUCOSE, FASTING 160 MG/DL (70-100); MB/CK RELATIVE INDEX 1.12 (< OR =4); NT-PRO BNP 234 PG/ML (<125); POTASSIUM SERUM 3.8 MEQ/L (3.5-5.1); SODIUM LEVEL 133 MEQ/L (136-145); TOTAL PROTEIN 6.7 GM/DL (6.4-8.2); TROPONIN I < 0.02 NG/ML (< 0.10)
[2020-04-24] MEDS ORDERED: CLINDAMYCIN 600 MG in IV 1 EA IV ONE (22:15)
--- NOTE | 2020-04-24 22:18 | REP ---
Clinical: Cough and dyspnea . Comparison: 05/21/2018 . Findings: The mediastinum and cardiac silhouette are stable and within normal limits for portable technique. The lung frias are clear without acute consolidation, effusion, or pneumothorax. Skeletal structures are intact. Impression: No acute cardiopulmonary process appreciated. Electronically Signed by Grady Francis MD 04/24/2020 10:10 P
--- NOTE | 2020-04-24 22:42 | REPVR ---
PROCEDURE INFORMATION: Exam: US Duplex Lower Extremity Veins, Bilateral Exam date and time: 04/24/2020 10:15 PM Age: 44 years old Clinical indication: Pain; Leg, lower; Bilateral; Additional info: Bilateral lower leg swelling; R/O dvt TECHNIQUE: Imaging protocol: Real-time duplex ultrasound of the extremities with 2-D lau scale, color Doppler flow and spectral waveform analysis with image documentation. Complete exam focused on the bilateral lower extremity veins. COMPARISON: US Duplex, Ext LOWER veins, bilat 01/16/2017 3:31 PM FINDINGS: Right deep veins: Unremarkable. The common femoral, femoral, proximal profunda femoral and popliteal veins are patent without thrombus. Normal Doppler waveforms. Normal compressibility and/or augmentation response. Right superficial veins: Saphenofemoral junction is patent without thrombus. Left deep veins: Unremarkable. The common femoral, femoral, proximal profunda femoral and popliteal veins are patent without thrombus. Normal Doppler waveforms. Normal compressibility and/or augmentation response. Left superficial veins: Saphenofemoral junction is patent without thrombus. Soft tissues: Bilateral lower leg edema. IMPRESSION: No evidence of deep vein thrombosis. Electronically signed by: Patrick Taylor On 04/24/2020 22:42:12 PM
[2020-04-24] MEDS ORDERED: IBUPROFEN 800 MG TAB PO ONE (22:45)
[2020-04-24] MEDS ORDERED: OMEP-218 PO (23:00)
[2020-04-24] MEDS ORDERED: TRAZ-257 PO (23:00)
[2020-04-24] MEDS ORDERED: MOBI4TAB PO (23:01)
[2020-04-24] MEDS ORDERED: TRUL10IN SC (23:01)
[2020-04-24] MEDS ORDERED: FLON1SPR NARES (23:24)
[2020-04-24] MEDS ORDERED: PRAM1.5T2 PO (23:24)
[2020-04-25] MEDS ORDERED: GLUCAGON INJ 1MG VIAL SC PRN (00:15)
[2020-04-25] MEDS ORDERED: ALBUTEROL 90 MCG/ACT 8GM HFA INHALER INH PRN (00:15)
[2020-04-25] MEDS ORDERED: GLUCOSE 4GM CHEW TABLET PO PRN (00:15)
[2020-04-25] MEDS ORDERED: DEXTROSE 50% 50 ML SYRINGE IV PRN (00:15)
[2020-04-25 00:45] VITALS: BP 120/79
[2020-04-25] MEDS: SUCRALFATE 1 GM TAB PO SCH ×5 (01:05→20:23)
[2020-04-25] MEDS: NS 1,000 ML IV SCH ×3 (01:07→20:23)
[2020-04-25 06:00] VITALS: BP 124/79
[2020-04-25] MEDS: CLINDAMYCIN 900 MG in IV 1 EA IV SCH ×3 (06:51→21:58)
--- NOTE | 2020-04-25 06:58 | ECGEPIP ---
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
[2020-04-25 07:45] LABS: BASO % 0.1 % (0.0-1.0); HEMATOCRIT 43.9 % (42.0-52.0); LYMPH # 0.7 10^3/uL (1.5-5.0); LYMPH % 3.7 % (24.0-44.0); MEAN CORPUSCULAR HEMOGLOBIN 31.9 pg (27.0-33.0); MEAN CORPUSCULAR HGB CONC 34.2 g/dl (32.0-36.5); MEAN CORPUSCULAR VOLUME 93.4 fl (80.0-96.0); MONO # 0.2 10^3/uL (0.0-0.8); MONO % 1.1 % (0.0-5.0); NEUTROPHILS # 17.5 10^3/uL (1.5-8.5); NEUTROPHILS % 94.6 % (36.0-66.0); PLATELET COUNT, AUTOMATED 190 10^3/uL (150-450); WHITE BLOOD COUNT 18.5 10^3/uL (4.0-10.0)
[2020-04-25] MEDS: HumaLOG INSULIN (NovoLOG) PER UNIT SC SCH ×4 (07:54→20:24)
[2020-04-25] MEDS: ENOXAPARIN 40MG/0.4ML SYRINGE (J1650 PER 10MG) SC SCH (07:55)
[2020-04-25] MEDS: FLUTICASONE PROP 0.05% NASAL SPRAY 16 GM (FLONASE) NARES SCH (07:55)
[2020-04-25] MEDS: DULoxetine 30 MG CAP (CYMBALTA) PO SCH (07:55)
[2020-04-25] MEDS: OMEPRAZOLE 20 MG CAP PO SCH ×2 (07:56→20:23)
[2020-04-25] MEDS: buPROPion **XL** TABLET 150MG (WELLBUTRIN XL) PO SCH (07:56)
[2020-04-25] MEDS: metFORMIN (GLUCOPHAGE) 1000 MG TABLET PO SCH ×2 (07:56→17:17)
[2020-04-25] MEDS: LACTOBACILLUS ACIDOPHILUS CAP (BACID) PO SCH ×2 (07:56→17:17)
[2020-04-25] MEDS: busPIRone 10 MG TAB PO SCH ×2 (07:56→20:23)
[2020-04-25] MEDS: ZIPRASIDONE 20MG CAPSULE (GEODON) PO SCH ×2 (07:56→20:23)
[2020-04-25] MEDS ORDERED: SODIUM CHLORIDE 0.9% 1000ML IV ONE (08:00)
[2020-04-25 08:12] LABS: HEMOGLOBIN A1c 7.5 %
[2020-04-25 08:16] LABS: BLOOD UREA NITROGEN 12 MG/DL (7-18); CALCIUM LEVEL 8.4 MG/DL (8.5-10.1); CARBON DIOXIDE LEVEL 24 MEQ/L (21-32); CHLORIDE LEVEL 99 MEQ/L (98-107); CHOLESTEROL LEVEL 91 MG/DL (<200); CHOLESTEROL RISK RATIO 3.137 (<5); CREATININE FOR GFR 1.11 MG/DL (0.70-1.30); GLOMERULAR FILTRATION RATE > 60.0 (>60); GLUCOSE, FASTING 257 MG/DL (70-100); HDL CHOLESTEROL 29 MG/DL (>40); LDL CHOLESTEROL 40 MG/DL (<100); NON-HDL-C 62 MG/DL; POTASSIUM SERUM 4.2 MEQ/L (3.5-5.1); SODIUM LEVEL 133 MEQ/L (136-145); TRIGLYCERIDES LEVEL 110 MG/DL (<150)
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
[2020-04-25] MEDS ORDERED: hydrOXYzine 50 MG TAB PO SCH (09:00)
[2020-04-25 09:47] VITALS: BP 127/78
[2020-04-25] MEDS ORDERED: IPRATROPIUM 0.5MG/ALBUTEROL 2.5MG INH SOL UD 3ML (DUONEB) NEB PRN (11:00)
[2020-04-25] MEDS ORDERED: hydrOXYzine 50 MG TAB PO PRN (11:15)
[2020-04-25] MEDS: IPRATROPIUM 0.5MG/ALBUTEROL 2.5MG INH SOL UD 3ML (DUONEB) NEB SCH ×4 (11:25→23:50)
[2020-04-25 12:00] VITALS: BP 120/72
[2020-04-25 14:00] VITALS: BP 133/81
--- NOTE | 2020-04-25 16:00 | IPNPDOC ---
Subjective Date Seen The patient was seen on 04/25/20. Subjective Chief Complaint/HPI The patient is quite somnolent this morning, but he is arousable. He is not in any pain at this time. Otherwise, he seems to not pay attention to my questioning, and then nods off fairly quickly, therefore review of systems is unobtainable. I suspect that his somnolence may be due to the administration of hydroxyzine, this order will be changed to PRN. Although he somewhat tachypneic (likely from his lactic acidosis), the remainder of his vital signs are stable, and he is oxygenating well on 2 L nasal cannula, therefore I will allow him to continue sleeping. General: Reports: ROS Unobtainable Objective Physical Examination General Exam: Positive: No Acute Distress; Negative: Alert Chest Exam: Positive: Wheezing; Negative: Rales, Rhonchi Heart Exam: Positive: Rate Normal, Regular Rhythm, Normal S1, Normal S2; Negative: Murmurs, Rubs Abdomen Exam: Positive: Soft; Negative: Tenderness Extremity Exam: Negative: Edema Skin Exam: Positive: Other skin issue (chronic venous stasis changes present. He does have some localized erythema and edema on the left anterior sandhu.) Assessment /Plan Problems (1) Cellulitis of left leg Status: Acute (2) Sepsis Status: Acute (3) Lactic acidosis Status: Acute (4) Obstructive sleep apnea on CPAP Status: Chronic Problem Text: Old orders for his CPAP were found in ethology, these have been resumed, and this is helping his oxygenation while sleeping. (5) Hyperlipidemia Status: Chronic Problem Text: Continue home dose of atorvastatin (6) Diabetes mellitus type 2 in obese Status: Chronic Problem Text: Continue with long-acting and short acting insulin per sliding scale (7) Schizophrenia Status: Chronic Problem Text: Continue home dose of Wellbutrin, BuSpar, Cymbalta, Geodon. Hydroxyzine PRN for anxiety/agitation. (8) GERD (gastroesophageal reflux disease) Status: Chronic Problem Text: Continue home dose of sucralfate and omeprazole (9) Tobacco use Status: Chronic Problem Text: Comorbid condition complicating care Plan/VTE VTE Prophylaxis Ordered?: Yes (Lovenox) Plan Lactic acidosis had not been resolved by this morning, I gave her a fluid bolus of 2 L, which in addition to the 1 L he is already received would be sufficient per sepsis protocol. Repeat lactic acid shows a resolution of lactic acidosis, and patient tachypnea is improving. CPAP as not being administered while sleeping which will also help facilitate oxygenation and ventilation of his lungs. Continue with empiric antibiotics and clindamycin. A wound culture was obtained, and found to have gram-positive cocci in pairs, along with a few epithelial cells. In looking at his leg, there is not any abscess or purulent drainage, just serosanguineous weeping from an edematous and erythematous sandhu. Blood cultures are still pending. Ultrasound of the legs already ruled out DVT. VS, I&O, 24H, Fishbone Vital Signs/I&O Vital Signs Date Time Temp Pulse Resp B/P (MAP) Pulse Ox O2 Delivery O2 Flow Rate FiO2 04/25/20 14:00 97.3 89 20 133/81 (98) 95 NIPPV (BIPAP/CPAP) 04/25/20 06:00 2.0 I&O- Last 24 Hours up to 6 AM 04/25/20 06:00 Intake Total 480 ml Output Total 550 ml Balance -70 ml Laboratory Data 24H LABS Laboratory Tests 2 04/24/20 21:03: Anion Gap 9, Glomerular Filtration Rate > 60.0, Calcium Level 8.4L, Total Bilirubin 0.5, Direct Bilirubin 0.1, Aspartate Amino Transf (AST/SGOT) 14, Alanine Aminotransferase (ALT/SGPT) 23, Alkaline Phosphatase 83, Total Creatine Kinase 89, Creatine Kinase MB < 1.0, Creatine Kinase MB Relative Index 1.12, Troponin I < 0.02, C-Reactive Protein, Quantitative 12.00H, UD-Mse-T-Type Natriuretic Peptide 234H, Total Protein 6.7, Albumin 3.4, Albumin/Globulin Ratio 1.0, Thyroid Stimulating Hormone (TSH) 1.050 04/24/20 21:04: Immature Granulocyte % (Auto) 0.4, Neutrophils (%) (Auto) 88.5H, Lymphocytes (%) (Auto) 6.0L, Monocytes (%) (Auto) 4.9, Eosinophils (%) (Auto) 0.0, Basophils (%) (Auto) 0.2, Neutrophils # (Auto) 14.9H, Lymphocytes # (Auto) 1.0L, Monocytes # (Auto) 0.8, Eosinophils # (Auto) 0.0, Basophils # (Auto) 0.0, Nucleated Red Blood Cells % (auto) 0.0, Erythrocyte Sedimentation Rate 25H, Lactic Acid Level 2.2*H 04/24/20 21:12: POC Glucose (Misc Panel) 171H, POC Sodium (Misc Panel) 132L, POC Potassium (Misc Panel) 3.7, POC Chloride (Misc Panel) 93L, POC Total CO2 (Misc Panel) 23.0, POC Blood Urea Nitrogen (Misc Panel 12, POC Ionized Calcium (Misc Panel) 4.5, POC Creatinine (Misc Panel) 1.0, POC Hematocrit (Misc Panel) 45.0 04/24/20 21:30: POC Total CO2 (Misc Panel) 26.0, POC pH (Misc Panel) 7.416, POC Base Excess (Misc Panel) 0.0, POC Saturated Percent O2 (Misc) 92L, POC pO2 (Misc Panel) 62.0L, POC pCO2 (Misc Panel) 38.5, POC HCO3 (Misc Panel) 24.8 04/25/20 01:00: Bedside Glucose (Misc Panel) 240H 04/25/20 01:29: Lactic Acid Followup at 4 Hours 2.8*H 04/25/20 07:32: Immature Granulocyte % (Auto) 0.5, Neutrophils (%) (Auto) 94.6H, Lymphocytes (%) (Auto) 3.7L, Monocytes (%) (Auto) 1.1, Eosinophils (%) (Auto) 0.0, Basophils (%) (Auto) 0.1, Neutrophils # (Auto) 17.5H, Lymphocytes # (Auto) 0.7L, Monocytes # (Auto) 0.2, Eosinophils # (Auto) 0.0, Basophils # (Auto) 0.0, Nucleated Red Blood Cells % (auto) 0.0, Anion Gap 10, Glomerular Filtration Rate > 60.0, Estimated Mean Plasma Glucose 169H, Hemoglobin A1c 7.5, Lactic Acid Level 2.6*H, Calcium Level 8.4L, C-Reactive Protein, Quantitative 15.90H, Triglycerides Level 110, Total Cholesterol 91, LDL Cholesterol 40, Non-HDL Cholesterol (LDL + VLDL) 62, Total HDL Cholesterol 29L, Cholesterol/HDL Ratio 3.137 04/25/20 07:44: Bedside Glucose (Misc Panel) 287H 7/5/20 10:19: Bedside Glucose (Misc Panel) 199H 04/25/20 12:05: Lactic Acid Followup at 4 Hours 1.9 04/25/20 12:16: Bedside Glucose (Misc Panel) 200H CBC/BMP Laboratory Tests 04/24/20 21:03 04/24/20 21:04 04/25/20 07:32 Microbiology Microbiology 04/24/20 Gram Stain - Final, Resulted 04/24/20 Wound Culture, Resulted Pending 04/24/20 Respiratory Virus Panel (PCR) ([facility]) - Final, Complete 04/24/20 Blood Culture, Received Pending 04/24/20 Blood Culture, Received Pending BELLA DUCKWORTH DO Apr 25, 2020 16:00
[2020-04-25] MEDS: ACETAMINOPHEN TAB 650MG DOSE (2X325MG) PO PRN (17:19)
[2020-04-25] MEDS: ATORVASTATIN 20 MG TAB PO SCH (20:23)
[2020-04-25] MEDS: traZODone 100 MG TAB PO PRN (20:23)
[2020-04-25] MEDS ORDERED: traZODone 100 MG TAB PO SCH (21:00)
[2020-04-25 22:00] VITALS: BP 133/80
[2020-04-26 02:00] VITALS: BP 126/78
[2020-04-26] MEDS: IPRATROPIUM 0.5MG/ALBUTEROL 2.5MG INH SOL UD 3ML (DUONEB) NEB SCH ×6 (03:32→23:19)
[2020-04-26] MEDS: CLINDAMYCIN 900 MG in IV 1 EA IV SCH ×2 (05:13→12:27)
[2020-04-26 06:00] VITALS: BP 160/87
[2020-04-26 06:46] LABS: BASO % 0.2 % (0.0-1.0); EOS % 0.2 % (0.0-3.0); HEMATOCRIT 37.6 % (42.0-52.0); LYMPH # 1.3 10^3/uL (1.5-5.0); LYMPH % 10.1 % (24.0-44.0); MEAN CORPUSCULAR HEMOGLOBIN 32.1 pg (27.0-33.0); MEAN CORPUSCULAR VOLUME 94.2 fl (80.0-96.0); MONO % 7.3 % (0.0-5.0); NEUTROPHILS # 10.8 10^3/uL (1.5-8.5); NEUTROPHILS % 81.8 % (36.0-66.0); PLATELET COUNT, AUTOMATED 160 10^3/uL (150-450); RED BLOOD COUNT 3.99 10^6/uL (4.30-6.10); WHITE BLOOD COUNT 13.2 10^3/uL (4.0-10.0)
[2020-04-26 06:47] LABS: HEMOGLOBIN 12.8 g/dl (13.5-17.5)
[2020-04-26 07:09] LABS: BLOOD UREA NITROGEN 14 MG/DL (7-18); CALCIUM LEVEL 7.8 MG/DL (8.5-10.1); CARBON DIOXIDE LEVEL 26 MEQ/L (21-32); CHLORIDE LEVEL 98 MEQ/L (98-107); CREATININE FOR GFR 0.98 MG/DL (0.70-1.30); GLOMERULAR FILTRATION RATE > 60.0 (>60); GLUCOSE, FASTING 184 MG/DL (70-100); POTASSIUM SERUM 3.9 MEQ/L (3.5-5.1); SODIUM LEVEL 129 MEQ/L (136-145)
[2020-04-26] MEDS: metFORMIN (GLUCOPHAGE) 1000 MG TABLET PO SCH ×2 (08:04→17:40)
[2020-04-26] MEDS: NS 1,000 ML IV SCH (08:04)
[2020-04-26] MEDS: LACTOBACILLUS ACIDOPHILUS CAP (BACID) PO SCH ×2 (08:04→17:40)
[2020-04-26] MEDS: DULoxetine 30 MG CAP (CYMBALTA) PO SCH (08:04)
[2020-04-26] MEDS: OMEPRAZOLE 20 MG CAP PO SCH ×2 (08:04→20:31)
[2020-04-26] MEDS: ZIPRASIDONE 20MG CAPSULE (GEODON) PO SCH ×2 (08:05→20:31)
[2020-04-26] MEDS: SUCRALFATE 1 GM TAB PO SCH ×4 (08:05→20:31)
[2020-04-26] MEDS: busPIRone 10 MG TAB PO SCH ×2 (08:05→20:31)
[2020-04-26] MEDS: buPROPion **XL** TABLET 150MG (WELLBUTRIN XL) PO SCH (08:05)
[2020-04-26] MEDS: HumaLOG INSULIN (NovoLOG) PER UNIT SC SCH ×4 (08:06→20:34)
[2020-04-26] MEDS: ENOXAPARIN 40MG/0.4ML SYRINGE (J1650 PER 10MG) SC SCH (08:06)
[2020-04-26] MEDS: FLUTICASONE PROP 0.05% NASAL SPRAY 16 GM (FLONASE) NARES SCH (08:07)
[2020-04-26 10:00] VITALS: BP 109/62
--- NOTE | 2020-04-26 13:53 | IPNPDOC ---
Subjective Date Seen The patient was seen on 04/26/20. Subjective Chief Complaint/HPI The patient is much more easily arouses warning. As a matter fact is even able to hold a conversation. I suspect that some of his drowsiness and mentation may be secondary to the plethora of psychiatric medications he is on, I am unsure as to what his baseline is. He is still not a very good historian. Nevertheless, he is not complaining of any fevers, chills, nausea, vomiting, diarrhea, and he really does not have any pain. The remainder of his review of systems is negative. Objective Physical Examination General Exam: Positive: No Acute Distress; Negative: Alert Chest Exam: Positive: Clear to auscultation; Negative: Rales, Rhonchi Heart Exam: Positive: Rate Normal, Regular Rhythm; Negative: Tachycardic, Murmurs, Rubs Abdomen Exam: Positive: Soft; Negative: Tenderness Extremity Exam: Negative: Edema Skin Exam: Positive: Rash (chronic venous stasis changes present.), Other skin issue (continues to have cellulitis of left lower extremity, perhaps it is a little less angry looking today, but still spans the entire lower leg from the ankle to the knee circumferentially.) Assessment /Plan Problems (1) Cellulitis of left leg Status: Acute (2) Sepsis Status: Resolved (3) Lactic acidosis Status: Resolved (4) Obstructive sleep apnea on CPAP Status: Chronic Problem Text: CPAP while sleeping (5) Hyperlipidemia Status: Chronic Problem Text: Continue home dose of atorvastatin (6) Diabetes mellitus type 2 in obese Status: Chronic Problem Text: Continue with long-acting and short acting insulin per sliding scale (7) Schizophrenia Status: Chronic Problem Text: Continue home dose of Wellbutrin, BuSpar, Cymbalta, Geodon. Hydroxyzine PRN for anxiety/agitation. (8) GERD (gastroesophageal reflux disease) Status: Chronic Problem Text: Continue home dose of sucralfate and omeprazole (9) Tobacco use Status: Chronic Problem Text: Comorbid condition complicating care Plan/VTE VTE Prophylaxis Ordered?: Yes (Lovenox) Plan Leukocytosis and CRP are trending down. 24 hour blood cultures are negative. Wound culture is probably of limited value since this was not a purulent lesion, initial Gram stain read shows gram-positive cocci in pairs, this appears to be classic erysipelas cellulitis in a diabetic patient. Will discontinue IV clindamycin at this time and switch him over to trimethoprim sulfamethoxazole double strength 1 tablet by mouth twice a day. If all trends continue to improve, anticipate discharge within 1-2 days. VS, I&O, 24H, [place] Vital Signs/I&O Vital Signs Date Time Temp Pulse Resp B/P (MAP) Pulse Ox O2 Delivery O2 Flow Rate FiO2 04/26/20 10:00 97.3 80 20 109/62 (78) 96 Room Air 04/25/20 06:00 2.0 I&O- Last 24 Hours up to 6 AM 04/26/20 06:00 Intake Total 6940 ml Output Total 1450 ml Balance 5490 ml Laboratory Data 24H LABS Laboratory Tests 2 04/25/20 16:31: Bedside Glucose (Misc Panel) 233H 04/25/20 19:45: Bedside Glucose (Misc Panel) 254H 04/26/20 06:25: Immature Granulocyte % (Auto) 0.4, Neutrophils (%) (Auto) 81.8H, Lymphocytes (%) (Auto) 10.1L, Monocytes (%) (Auto) 7.3H, Eosinophils (%) (Auto) 0.2, Basophils (%) (Auto) 0.2, Neutrophils # (Auto) 10.8H, Lymphocytes # (Auto) 1.3L, Monocytes # (Auto) 1.0H, Eosinophils # (Auto) 0.0, Basophils # (Auto) 0.0, Nucleated Red Blood Cells % (auto) 0.0, Anion Gap 5L, Glomerular Filtration Rate > 60.0, Calcium Level 7.8L, C-Reactive Protein, Quantitative 10.90H 04/26/20 11:29: Bedside Glucose (Misc Panel) 169H CBC/BMP Laboratory Tests 04/26/20 06:25 Microbiology Microbiology 04/24/20 Gram Stain - Final, Resulted 04/24/20 Wound Culture, Resulted Pending 04/24/20 Respiratory Virus Panel (PCR) ([facility]) - Final, Complete 04/24/20 Blood Culture - Preliminary, Resulted No growth after 24 hours . All specim... 04/24/20 Blood Culture - Preliminary, Resulted No growth after 24 hours . All specim... BELLA DUCKWORTH DO Apr 26, 2020 13:53
[2020-04-26 14:00] VITALS: BP 128/70
[2020-04-26] MEDS: NICOTINE 21MG/24HR 1 EA TRANSDERMAL TD SCH (15:50)
[2020-04-26] MEDS: BACTRIM 160MG/800MG DS TAB PO SCH ×2 (15:50→20:31)
[2020-04-26] MEDS: ACETAMINOPHEN TAB 650MG DOSE (2X325MG) PO PRN (20:30)
[2020-04-26] MEDS: traZODone 100 MG TAB PO PRN (20:31)
[2020-04-26] MEDS: ATORVASTATIN 20 MG TAB PO SCH (20:32)
[2020-04-26 22:00] VITALS: BP 130/71
[2020-04-27 02:00] VITALS: BP 123/82
[2020-04-27 06:00] VITALS: BP 149/87
[2020-04-27 06:10] LABS: BASO % 0.1 % (0.0-1.0); EOS # 0.1 10^3/uL (0.0-0.5); EOS % 1.3 % (0.0-3.0); HEMATOCRIT 39.9 % (42.0-52.0); HEMOGLOBIN 13.4 g/dl (13.5-17.5); LYMPH # 1.2 10^3/uL (1.5-5.0); LYMPH % 15.8 % (24.0-44.0); MEAN CORPUSCULAR HEMOGLOBIN 31.8 pg (27.0-33.0); MEAN CORPUSCULAR HGB CONC 33.6 g/dl (32.0-36.5); MEAN CORPUSCULAR VOLUME 94.8 fl (80.0-96.0); MONO # 0.7 10^3/uL (0.0-0.8); MONO % 8.3 % (0.0-5.0); NEUTROPHILS # 5.8 10^3/uL (1.5-8.5); NEUTROPHILS % 74.1 % (36.0-66.0); PLATELET COUNT, AUTOMATED 174 10^3/uL (150-450); RED BLOOD COUNT 4.21 10^6/uL (4.30-6.10); WHITE BLOOD COUNT 7.9 10^3/uL (4.0-10.0)
[2020-04-27 06:37] LABS: BLOOD UREA NITROGEN 12 MG/DL (7-18); C REACTIVE PROTEIN QUANTITATIV 4.05 MG/DL (0.00-0.30); CALCIUM LEVEL 8.8 MG/DL (8.5-10.1); CARBON DIOXIDE LEVEL 27 MEQ/L (21-32); CHLORIDE LEVEL 104 MEQ/L (98-107); GLOMERULAR FILTRATION RATE > 60.0 (>60); GLUCOSE, FASTING 124 MG/DL (70-100); POTASSIUM SERUM 4.3 MEQ/L (3.5-5.1); SODIUM LEVEL 139 MEQ/L (136-145)
[2020-04-27] MEDS: IPRATROPIUM 0.5MG/ALBUTEROL 2.5MG INH SOL UD 3ML (DUONEB) NEB SCH ×5 (07:29→20:30)
[2020-04-27] MEDS: HumaLOG INSULIN (NovoLOG) PER UNIT SC SCH ×4 (08:23→21:00)
[2020-04-27] MEDS: DULoxetine 30 MG CAP (CYMBALTA) PO SCH (08:24)
[2020-04-27] MEDS: ZIPRASIDONE 20MG CAPSULE (GEODON) PO SCH ×2 (08:24→20:40)
[2020-04-27] MEDS: metFORMIN (GLUCOPHAGE) 1000 MG TABLET PO SCH ×2 (08:24→17:03)
[2020-04-27] MEDS: LACTOBACILLUS ACIDOPHILUS CAP (BACID) PO SCH ×2 (08:24→17:03)
[2020-04-27] MEDS: BACTRIM 160MG/800MG DS TAB PO SCH ×2 (08:24→20:40)
[2020-04-27] MEDS: buPROPion **XL** TABLET 150MG (WELLBUTRIN XL) PO SCH (08:24)
[2020-04-27] MEDS: OMEPRAZOLE 20 MG CAP PO SCH ×2 (08:24→20:40)
[2020-04-27] MEDS: busPIRone 10 MG TAB PO SCH ×2 (08:24→20:40)
[2020-04-27] MEDS: FLUTICASONE PROP 0.05% NASAL SPRAY 16 GM (FLONASE) NARES SCH (08:25)
[2020-04-27] MEDS: ENOXAPARIN 40MG/0.4ML SYRINGE (J1650 PER 10MG) SC SCH (08:25)
[2020-04-27] MEDS: SUCRALFATE 1 GM TAB PO SCH ×4 (08:25→20:40)
[2020-04-27] MEDS: NICOTINE 21MG/24HR 1 EA TRANSDERMAL TD SCH (08:25)
[2020-04-27 14:00] VITALS: BP 172/87
--- NOTE | 2020-04-27 19:38 | IPNPDOC ---
Text Note Date of Service The patient was seen on 04/27/20. NOTE Subjective: -Reports that he feels so much better today and that his leg pain and swelling has reduced Objective: General: No Acute Distress HEENT: NCAT, PERRLA, EOMI, anicteric, MMM Chest: CTAB Heart: RRR, no mrg Abdomen: obese, soft, NTND Extremity: bilateral LE pitting edema to sub-knees Skin: chronic venous stasis changes present, with continued left lower extremity erythema, spanning from the ankle to below the knees circumferentially labs: WBC downtrended to 7.9. Cr 0.9. Hgb 13.4 Plan: (1) Cellulitis of left leg -continue bactrim BID (2) Sepsis: Resolved (3) Lactic acidosis: Resolved (4) Obstructive sleep apnea on CPAP (5) Hyperlipidemia: Continue home dose of atorvastatin (6) Diabetes mellitus type 2: Continue with long-acting and short acting insulin per sliding scale (7) Schizophrenia: Continue home dose of Wellbutrin, BuSpar, Cymbalta, Geodon. Hydroxyzine PRN for anxiety/agitation. (8) GERD: Continue home dose of sucralfate and omeprazole (9) Tobacco use: Comorbid condition complicating care. On nicotine patch DVT ppx: lovenox SQ VS,Fishbone, I+O VS, Fishbone, I+O Laboratory Tests 04/27/20 05:56 Vital Signs Date Time Temp Pulse Resp B/P (MAP) Pulse Ox O2 Delivery O2 Flow Rate FiO2 04/27/20 14:00 97.5 98 20 172/87 (115) 98 Room Air 04/25/20 06:00 2.0 I&O- Last 24 Hours up to 6 AM 04/27/20 05:59 Intake Total 3780 ml Output Total 4900 ml Balance -1120 ml VIRAL ISSA MD Apr 27, 2020 19:38
[2020-04-27] MEDS ORDERED: FUROSEMIDE 40MG/4ML VIAL (J1940) IV ONE (19:45)
[2020-04-27] MEDS: ATORVASTATIN 20 MG TAB PO SCH (20:39)
[2020-04-27] MEDS: ACETAMINOPHEN TAB 650MG DOSE (2X325MG) PO PRN (20:39)
[2020-04-27] MEDS: traZODone 100 MG TAB PO PRN (20:40)
[2020-04-27 22:00] VITALS: BP 157/88
[2020-04-28] MEDS: IPRATROPIUM 0.5MG/ALBUTEROL 2.5MG INH SOL UD 3ML (DUONEB) NEB SCH ×4 (00:21→11:22)
[2020-04-28 04:18] VITALS: BP 165/89
[2020-04-28 07:04] LABS: BASO % 0.3 % (0.0-1.0); EOS # 0.1 10^3/uL (0.0-0.5); EOS % 1.3 % (0.0-3.0); HEMATOCRIT 42.5 % (42.0-52.0); HEMOGLOBIN 14.2 g/dl (13.5-17.5); LYMPH # 1.3 10^3/uL (1.5-5.0); LYMPH % 14.6 % (24.0-44.0); MEAN CORPUSCULAR HEMOGLOBIN 31.4 pg (27.0-33.0); MEAN CORPUSCULAR HGB CONC 33.4 g/dl (32.0-36.5); MONO # 0.9 10^3/uL (0.0-0.8); MONO % 10.4 % (0.0-5.0); NEUTROPHILS # 6.4 10^3/uL (1.5-8.5); NEUTROPHILS % 72.8 % (36.0-66.0); PLATELET COUNT, AUTOMATED 217 10^3/uL (150-450); RED BLOOD COUNT 4.52 10^6/uL (4.30-6.10); WHITE BLOOD COUNT 8.8 10^3/uL (4.0-10.0)
[2020-04-28 07:25] LABS: BLOOD UREA NITROGEN 12 MG/DL (7-18); C REACTIVE PROTEIN QUANTITATIV 3.46 MG/DL (0.00-0.30); CALCIUM LEVEL 9.1 MG/DL (8.5-10.1); CARBON DIOXIDE LEVEL 31 MEQ/L (21-32); CHLORIDE LEVEL 99 MEQ/L (98-107); CREATININE FOR GFR 1.08 MG/DL (0.70-1.30); GLOMERULAR FILTRATION RATE > 60.0 (>60); GLUCOSE, FASTING 148 MG/DL (70-100); SODIUM LEVEL 134 MEQ/L (136-145)
[2020-04-28] MEDS: FLUTICASONE PROP 0.05% NASAL SPRAY 16 GM (FLONASE) NARES SCH (08:29)
[2020-04-28] MEDS: HumaLOG INSULIN (NovoLOG) PER UNIT SC SCH ×2 (08:30→11:57)
[2020-04-28] MEDS: ENOXAPARIN 40MG/0.4ML SYRINGE (J1650 PER 10MG) SC SCH (08:30)
[2020-04-28] MEDS: ZIPRASIDONE 20MG CAPSULE (GEODON) PO SCH (08:31)
[2020-04-28] MEDS: LACTOBACILLUS ACIDOPHILUS CAP (BACID) PO SCH (08:31)
[2020-04-28] MEDS: buPROPion **XL** TABLET 150MG (WELLBUTRIN XL) PO SCH (08:31)
[2020-04-28] MEDS: metFORMIN (GLUCOPHAGE) 1000 MG TABLET PO SCH (08:31)
[2020-04-28] MEDS: BACTRIM 160MG/800MG DS TAB PO SCH (08:31)
[2020-04-28] MEDS: DULoxetine 30 MG CAP (CYMBALTA) PO SCH (08:31)
[2020-04-28] MEDS: busPIRone 10 MG TAB PO SCH (08:31)
[2020-04-28] MEDS: OMEPRAZOLE 20 MG CAP PO SCH (08:31)
[2020-04-28] MEDS: SUCRALFATE 1 GM TAB PO SCH ×2 (08:32→11:57)
[2020-04-28] MEDS: ACETAMINOPHEN TAB 650MG DOSE (2X325MG) PO PRN (08:33)
[2020-04-28] MEDS ORDERED: DOXY-350 PO (08:48)
[2020-04-28] MEDS ORDERED: SANT250O8 TOP (08:48)
[2020-04-28] MEDS ORDERED: DOXYCYCLINE HYCLATE 100MG TABLET PO SCH (09:00)
[2020-04-28] MEDS ORDERED: SANTYL OINT 30GM TOP SCH (09:00)
[2020-04-28] MEDS: NICOTINE 21MG/24HR 1 EA TRANSDERMAL TD SCH (09:25)
[2020-04-28] MEDS ORDERED: KETOROLAC 30 MG/ML 1ML VIAL As Ordered ONE (09:55)
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
== END 2020-04-28 13:40 | disposition home or self-care (01) | DRG 872 ==
LOC: M ED 20:32 → M ED INP 23:31 → ENRESERVTM 04-25 00:03 → ENRESERVDT 04-25 00:03 → M MS5PR 04-25 00:42
PROVIDERS: ADMIT Internal Medicine; ATTEND Internal Medicine
DX: A41.9 Sepsis, unspecified organism (principal); L03.116 Cellulitis of left lower limb; E87.2 Acidosis; E87.1 Hypo-osmolality and hyponatremia; Z68.41 Body mass index [BMI] 40.0-44.9, adult; E66.01 Morbid (severe) obesity due to excess calories; I50.9 Heart failure, unspecified; E11.9 Type 2 diabetes mellitus without complications; G47.33 Obstructive sleep apnea (adult) (pediatric); K21.9 Gastro-esophageal reflux disease without esophagitis; E78.5 Hyperlipidemia, unspecified; R51 Headache; M51.36 Other intervertebral disc degeneration, lumbar region; Z79.899 Other long term (current) drug therapy; Z88.6 Allergy status to analgesic agent; F20.9 Schizophrenia, unspecified; F17.200 Nicotine dependence, unspecified, uncomplicated

== ENCOUNTER → 2020-08-05 | Outpatient (CLI) | payer MEDICARE, MEDICAID ==
[~2020-08-05] MED LIST changes: +FLON1SPR NARES; +MOBI4TAB PO; +OMEP-218 PO; +PRAM1.5T2 PO; +SANT250O8 TOP; +TRUL10IN SC
[2020-08-05 10:45] LABS: BASO # 0.1 10^3/uL (0.0-0.2); BASO % 0.5 % (0.0-1.0); EOS # 0.2 10^3/uL (0.0-0.5); EOS % 2.3 % (0.0-3.0); HEMATOCRIT 45.5 % (42.0-52.0); HEMOGLOBIN 15.3 g/dl (13.5-17.5); LYMPH # 2.5 10^3/uL (1.5-5.0); LYMPH % 26.3 % (24.0-44.0); MEAN CORPUSCULAR HGB CONC 33.6 g/dl (32.0-36.5); MEAN CORPUSCULAR VOLUME 92.3 fl (80.0-96.0); MONO # 0.9 10^3/uL (0.0-0.8); NEUTROPHILS # 5.9 10^3/uL (1.5-8.5); NEUTROPHILS % 61.4 % (36.0-66.0); PLATELET COUNT, AUTOMATED 311 10^3/uL (150-450); RED BLOOD COUNT 4.93 10^6/uL (4.30-6.10); WHITE BLOOD COUNT 9.6 10^3/uL (4.0-10.0)
[2020-08-05 11:20] LABS: ALT/SGPT 35 U/L (12-78); BILIRUBIN,TOTAL 0.4 MG/DL (0.2-1.0); BLOOD UREA NITROGEN 11 MG/DL (7-18); CARBON DIOXIDE LEVEL 31 MEQ/L (21-32); CHLORIDE LEVEL 99 MEQ/L (98-107); CHOLESTEROL LEVEL 95 MG/DL (<200); CHOLESTEROL RISK RATIO 3.166 (<5); CREATININE FOR GFR 1.06 MG/DL (0.70-1.30); FREE T4 1.21 NG/DL (0.76-1.46); GLOMERULAR FILTRATION RATE > 60.0 (>60); GLUCOSE, FASTING 187 MG/DL (70-100); HDL CHOLESTEROL 30 MG/DL (>40); LDL CHOLESTEROL 16 MG/DL (<100); NON-HDL-C 65 MG/DL; POTASSIUM SERUM 4.4 MEQ/L (3.5-5.1); SODIUM LEVEL 135 MEQ/L (136-145); TOTAL PROTEIN 7.4 GM/DL (6.4-8.2); TRIGLYCERIDES LEVEL 246 MG/DL (<150)
[2020-08-05 12:26] LABS: HEMOGLOBIN A1c 8.7 %
== END ==
LOC: M LAB 09:26
PROVIDERS: ATTEND Nurse Practitioner Psychiatric/Mental Health
DX: F25.1 Schizoaffective disorder, depressive type (principal); Z79.899 Other long term (current) drug therapy

== ENCOUNTER 2020-08-18 14:36 | Emergency (ER) | payer MEDICARE, MEDICAID ==
[~2020-08-18] VITALS: Ht 152.4 cm; Wt 121.7 kg
[2020-08-18 15:26] LABS: BASO # 0.1 10^3/uL (0.0-0.2); BASO % 0.5 % (0.0-1.0); EOS # 0.1 10^3/uL (0.0-0.5); LYMPH # 2.4 10^3/uL (1.5-5.0); LYMPH % 22.1 % (24.0-44.0); MEAN CORPUSCULAR HEMOGLOBIN 31.1 pg (27.0-33.0); MEAN CORPUSCULAR VOLUME 91.4 fl (80.0-96.0); MONO # 0.9 10^3/uL (0.0-0.8); MONO % 8.1 % (0.0-5.0); NEUTROPHILS # 7.3 10^3/uL (1.5-8.5); NEUTROPHILS % 67.9 % (36.0-66.0); PLATELET COUNT, AUTOMATED 290 10^3/uL (150-450); RED BLOOD COUNT 5.14 10^6/uL (4.30-6.10); WHITE BLOOD COUNT 10.7 10^3/uL (4.0-10.0)
[2020-08-18 15:44] LABS: ERYTHROCYTE SEDIMENTATION RATE 14 mm/hr (0-15)
[2020-08-18 15:50] LABS: BLOOD UREA NITROGEN 9 MG/DL (7-18); C REACTIVE PROTEIN QUANTITATIV 0.34 MG/DL (0.00-0.30); CALCIUM LEVEL 8.9 MG/DL (8.5-10.1); CARBON DIOXIDE LEVEL 30 MEQ/L (21-32); CHLORIDE LEVEL 101 MEQ/L (98-107); CREATININE FOR GFR 1.09 MG/DL (0.70-1.30); GLOMERULAR FILTRATION RATE > 60.0 (>60); GLUCOSE, FASTING 157 MG/DL (70-100); POTASSIUM SERUM 3.8 MEQ/L (3.5-5.1); SODIUM LEVEL 136 MEQ/L (136-145)
--- NOTE | 2020-08-18 16:05 | REP ---
INDICATION: LLE redness/ pain COMPARISON: None. TECHNIQUE: AP and lateral views obtained. FINDINGS: AP and lateral views of the left leg demonstrate no evidence of acute fracture, dislocation, or intrinsic bone disease. No osseous destruction is seen. IMPRESSION: No fracture or dislocation. No osseous destruction is seen. <Electronically signed by Richard Ramírez > 08/18/20 5000
--- NOTE | 2020-08-18 16:11 | REP ---
INDICATION: r/o DVT LLE COMPARISON: None. TECHNIQUE: Real time compression and duplex Doppler interrogation of the left lower extremity deep venous system is performed. FINDINGS: The left common femoral, superficial femoral and popliteal veins are fully compressible with transducer pressure and demonstrate normal spontaneous and phasic flow, without evidence of deep venous thrombosis. IMPRESSION: No evidence of deep venous thrombosis of the left lower extremity femoral popliteal venous system. <Electronically signed by Richard Ramírez > 08/18/20 [id number]
[2020-08-18 17:34] VITALS: BP 181/93
== END 2020-08-18 17:37 | disposition home or self-care (01) ==
LOC: M ED 14:36
DX: I87.2 Venous insufficiency (chronic) (peripheral) (principal); L97.929 Non-pressure chronic ulcer of unspecified part of left lower leg with unspecified severity; I73.9 Peripheral vascular disease, unspecified; E11.9 Type 2 diabetes mellitus without complications; J44.9 Chronic obstructive pulmonary disease, unspecified; K21.9 Gastro-esophageal reflux disease without esophagitis; E66.01 Morbid (severe) obesity due to excess calories; F31.9 Bipolar disorder, unspecified; F41.9 Anxiety disorder, unspecified; F20.9 Schizophrenia, unspecified; F17.200 Nicotine dependence, unspecified, uncomplicated; J30.2 Other seasonal allergic rhinitis; Z79.51 Long term (current) use of inhaled steroids; Z79.84 Long term (current) use of oral hypoglycemic drugs; Z79.899 Other long term (current) drug therapy

== ENCOUNTER → 2020-12-31 | Outpatient (CLI) | payer MEDICARE, MEDICAID ==
[2020-12-31 15:12] LABS: HEMOGLOBIN A1c 6.9 %
[2020-12-31 15:24] LABS: ALBUMIN 4.1 GM/DL (3.2-5.2); ALT/SGPT 31 U/L (12-78); BILIRUBIN,TOTAL 0.3 MG/DL (0.2-1.0); BLOOD UREA NITROGEN 17 MG/DL (7-18); CALCIUM LEVEL 9.6 MG/DL (8.5-10.1); CARBON DIOXIDE LEVEL 30 MEQ/L (21-32); CHLORIDE LEVEL 100 MEQ/L (98-107); CREATININE FOR GFR 1.06 MG/DL (0.70-1.30); GLOMERULAR FILTRATION RATE > 60.0 (>60); GLUCOSE, FASTING 190 MG/DL (70-100); POTASSIUM SERUM 4.2 MEQ/L (3.5-5.1); SODIUM LEVEL 136 MEQ/L (136-145); TOTAL PROTEIN 7.1 GM/DL (6.4-8.2)
[2020-12-31 16:38] LABS: TOTAL 25(OH) VITAMIN D 24.8 NG/ML (30.0-100.0); VITAMIN B12 LEVEL 527 PG/ML (247-911)
[2020-12-31 16:39] LABS: FOLATE 8.9 NG/ML (>5.4)
== END ==
LOC: M LAB 14:17
PROVIDERS: ATTEND Physician Assistant
DX: E11.9 Type 2 diabetes mellitus without complications (principal); M51.36 Other intervertebral disc degeneration, lumbar region; M79.662 Pain in left lower leg; Z79.899 Other long term (current) drug therapy

== ENCOUNTER → 2021-01-07 | Outpatient (REF) | payer MEDICARE, MEDICAID ==
[2021-01-07 18:09] LABS: BLOOD UREA NITROGEN 17 MG/DL (7-18); CREATININE FOR GFR 0.93 MG/DL (0.70-1.30); GLUCOSE, FASTING 155 MG/DL (70-100)
[2021-01-07 18:10] LABS: CALCIUM LEVEL 9.3 MG/DL (8.5-10.1); CARBON DIOXIDE LEVEL 29 MEQ/L (21-32); CHLORIDE LEVEL 102 MEQ/L (98-107); FOLATE 17.9 NG/ML; GLOMERULAR FILTRATION RATE > 60.0 (>60); POTASSIUM SERUM 4.2 MEQ/L (3.5-5.1); SODIUM LEVEL 139 MEQ/L (136-145); VITAMIN B12 LEVEL 444 PG/ML
== END ==
LOC: M SFHCADAM 13:34
PROVIDERS: ATTEND Physician Assistant
DX: E11.9 Type 2 diabetes mellitus without complications (principal); E66.01 Morbid (severe) obesity due to excess calories
CPT/HCPCS: 80048; 82607; 82746; G0463

== ENCOUNTER → 2021-05-31 | Outpatient (REF) | payer MEDICARE, MEDICAID ==
[~2021-05-31] MED LIST changes: +OMEP40CA4 PO; -OMEP40CA97 PO
[2021-05-31 18:07] LABS: HEMOGLOBIN A1c 7.1 %
[2021-05-31 18:13] LABS: BLOOD UREA NITROGEN 24 MG/DL (7-18); GLUCOSE, FASTING 94 MG/DL (70-100)
[2021-05-31 18:14] LABS: CALCIUM LEVEL 8.9 MG/DL (8.5-10.1); CARBON DIOXIDE LEVEL 30 MEQ/L (21-32); CHLORIDE LEVEL 104 MEQ/L (98-107); GLOMERULAR FILTRATION RATE > 60.0 (>60); SODIUM LEVEL 140 MEQ/L (136-145)
[2021-05-31 18:22] LABS: FOLATE 9.7 NG/ML; VITAMIN B12 LEVEL 402 PG/ML
== END ==
LOC: M SFHCADAM 13:40
PROVIDERS: ATTEND Physician Assistant
DX: E11.9 Type 2 diabetes mellitus without complications (principal); E66.01 Morbid (severe) obesity due to excess calories
CPT/HCPCS: 80048; 82607; 82746; 83036; G0463

== ENCOUNTER → 2021-09-23 | Outpatient (REF) | payer MEDICARE, MEDICAID ==
[~2021-09-23] MED LIST changes: -CYMB60CA3 PO; +CYMB60CA4 PO
[2021-09-23 13:17] LABS: APPEARANCE, URINE CLEAR (CLEAR); BACTERIA, URINE AUTO NEGATIVE (NEGATIVE); BILIRUBIN, URINE AUTO NEGATIVE (NEGATIVE); BLOOD, URINE BLOOD NEGATIVE (NEGATIVE); COLOR, URINE YELLOW (YELLOW); GLUCOSE, URINE (UA) AUTO 3+ mg/dL (NEGATIVE); KETONE, URINE AUTO NEGATIVE (NEGATIVE); LEUKOCYTE ESTERASE, URINE AUTO NEGATIVE (NEGATIVE); NITRITE, URINE AUTO NEGATIVE (NEGATIVE); PROTEIN, URINE AUTO NEGATIVE (NEGATIVE); RBC, URINE AUTO 0 /HPF (0-3); SPECIFIC GRAVITY URINE AUTO 1.011 (1.002-1.035); SQUAMOUS EPITHELIAL CELL UR AU 0 /HPF (0-6); UROBILINOGEN, URINE AUTO 0.2 mg/dL (0.0-2.0); WBC, URINE AUTO 1 /HPF (0-3)
== END ==
LOC: M SFHCADAM 12:31
PROVIDERS: ATTEND Physician Assistant
DX: E11.42 Type 2 diabetes mellitus with diabetic polyneuropathy (principal); R31.0 Gross hematuria; Z23 Encounter for immunization
CPT/HCPCS: 81001; 87088; 87186; 90472; 90682; 90715; G0008

== ENCOUNTER → 2021-11-10 | Outpatient (REF) | payer MEDICARE, MEDICAID ==
[~2021-11-10] MED LIST changes: +BENZ0.5T23 PO; +FURO40TA2 PO; +JARD1TAB3 PO; +NAPR-885 PO; +OMEP-173 PO; -OMEP-218 PO; -OMEP-221 PO; +OMEP40CA5 PO; +VITMTA PO
[2021-11-10 18:13] LABS: HEMATOCRIT 46.7 % (42.0-52.0); MEAN CORPUSCULAR HEMOGLOBIN 27.8 pg (27.0-33.0); MEAN CORPUSCULAR HGB CONC 32.1 g/dl (32.0-36.5); MEAN CORPUSCULAR VOLUME 86.5 fl (80.0-96.0); PLATELET COUNT, AUTOMATED 319 10^3/uL (150-450); WHITE BLOOD COUNT 9.6 10^3/uL (4.0-10.0)
[2021-11-10 18:44] LABS: CREATININE, URINE 79.1 MG/DL; MALB URINE SIEMENS 22.7 MG/L; MAU/CREAT RATIO 28.6 MCG/MG (0.0-30.0)
[2021-11-10 18:45] LABS: ALBUMIN 4.2 GM/DL (3.2-5.2); ALT/SGPT 18 U/L (12-78); BILIRUBIN,TOTAL 0.3 MG/DL (0.2-1.0); BLOOD UREA NITROGEN 12 MG/DL (7-18); CALCIUM LEVEL 8.9 MG/DL (8.5-10.1); CARBON DIOXIDE LEVEL 29 MEQ/L (21-32); CHLORIDE LEVEL 103 MEQ/L (98-107); CHOLESTEROL LEVEL 99 MG/DL (<200); CHOLESTEROL RISK RATIO 3.807 (<5); CREATININE FOR GFR 1.13 MG/DL (0.70-1.30); FREE T4 1.09 NG/DL (0.76-1.46); GLOMERULAR FILTRATION RATE > 60.0 (>60); GLUCOSE, FASTING 120 MG/DL (70-100); HDL CHOLESTEROL 26 MG/DL (>40); LDL CHOLESTEROL 3 MG/DL (<100); NON-HDL-C 73 MG/DL; POTASSIUM SERUM 3.8 MEQ/L (3.5-5.1); SODIUM LEVEL 139 MEQ/L (136-145); TOTAL PROTEIN 7.3 GM/DL (6.4-8.2); TRIGLYCERIDES LEVEL 348 MG/DL (<150)
[2021-11-10 19:31] LABS: HEMOGLOBIN A1c 6.5 %
== END ==
LOC: M SFHCADAM 15:30
PROVIDERS: ATTEND Family Medicine
DX: E11.42 Type 2 diabetes mellitus with diabetic polyneuropathy (principal); R07.89 Other chest pain; E78.2 Mixed hyperlipidemia; Z68.41 Body mass index [BMI] 40.0-44.9, adult; E78.5 Hyperlipidemia, unspecified

== ENCOUNTER → 2021-11-10 | Outpatient (CLI) | payer MEDICARE, MEDICAID | LOC: M LABSMTC 11:23 | PROVIDERS: ATTEND Anesthesiology | DX: Z01.812 Encounter for preprocedural laboratory examination (principal); E11.42 Type 2 diabetes mellitus with diabetic polyneuropathy; E07.89 Other specified disorders of thyroid; E78.2 Mixed hyperlipidemia; E78.5 Hyperlipidemia, unspecified; Z20.822 Contact with and (suspected) exposure to COVID-19; Z68.41 Body mass index [BMI] 40.0-44.9, adult | CPT/HCPCS: 80053; 80061; 82043; 83036; 84439; 84443; 85027; G0463; U0003 ==

== ENCOUNTER → 2022-02-10 | Outpatient (CLI) | payer MEDICARE, MEDICAID ==
[~2022-02-10] MED LIST changes: +CYMB1CAP5 PO; +HYDR-3713 PO; +SUCR1TAB56 PO; +TRUL0.5I SC
== END ==
LOC: M LABSMTC 09:43
PROVIDERS: ATTEND Anesthesiology
DX: Z01.818 Encounter for other preprocedural examination (principal); E11.9 Type 2 diabetes mellitus without complications; I51.7 Cardiomegaly; Z11.52 Encounter for screening for COVID-19

== ENCOUNTER → 2022-02-10 | Outpatient (REF) | payer MEDICARE, MEDICAID ==
[~2022-02-10] MED LIST changes: -HYDR-3713 PO; +SUCR1TAB56; -SUCR1TAB56 PO; -TRUL0.5I SC
[2022-02-10 16:43] LABS: HEMATOCRIT 45.8 % (42.0-52.0); HEMOGLOBIN 14.4 g/dl (13.5-17.5); MEAN CORPUSCULAR HEMOGLOBIN 26.8 pg (27.0-33.0); MEAN CORPUSCULAR HGB CONC 31.4 g/dl (32.0-36.5); MEAN CORPUSCULAR VOLUME 85.1 fl (80.0-96.0); PLATELET COUNT, AUTOMATED 348 10^3/uL (150-450); RED BLOOD COUNT 5.38 10^6/uL (4.30-6.10); WHITE BLOOD COUNT 9.3 10^3/uL (4.0-10.0)
[2022-02-10 17:01] LABS: INR 0.96; PROTHROMBIN TIME 13.2 SECONDS (12.7-14.5)
[2022-02-10 17:13] LABS: ALBUMIN 4.3 GM/DL (3.2-5.2); ALT/SGPT 26 U/L (12-78); BILIRUBIN,TOTAL 0.6 MG/DL (0.2-1.0); BLOOD UREA NITROGEN 16 MG/DL (7-18); CALCIUM LEVEL 9.2 MG/DL (8.5-10.1); CARBON DIOXIDE LEVEL 27 MEQ/L (21-32); CHLORIDE LEVEL 104 MEQ/L (98-107); CREATININE FOR GFR 1.05 MG/DL (0.70-1.30); GLOMERULAR FILTRATION RATE > 60.0 (>60); GLUCOSE, FASTING 95 MG/DL (70-100); POTASSIUM SERUM 4.3 MEQ/L (3.5-5.1); SODIUM LEVEL 138 MEQ/L (136-145); TOTAL PROTEIN 7.2 GM/DL (6.4-8.2)
[2022-02-10 18:06] LABS: HEMOGLOBIN A1c 6.6 %
== END ==
LOC: M SFHCADAM 11:19
PROVIDERS: ATTEND Physician Assistant
DX: Z01.818 Encounter for other preprocedural examination (principal); E11.9 Type 2 diabetes mellitus without complications

== ENCOUNTER → 2022-02-10 | Outpatient (CLI) | payer MEDICARE, MEDICAID | LOC: M ADAMS 11:32 | PROVIDERS: ATTEND Physician Assistant | DX: Z01.818 Encounter for other preprocedural examination (principal); I51.7 Cardiomegaly ==

== ENCOUNTER 2022-02-15 06:17 | Day surgery (SDC) | payer MEDICARE, MEDICAID ==
[~2022-02-15] VITALS: Ht 165.1 cm; Wt 113.4 kg
[2022-02-15] VITALS (9 sets, daily range): BP systolic 115–138; BP diastolic 53–81; O2SAT 91–92
[~2022-02-15 06:17] MED LIST changes: +CelecoXIB 400 MG CAP PO ONE; +HEPARIN SOD (PORCINE) 5000UNITS/ML 1ML VIAL/SYRINGE SQ SCH; +LIDOCAINE 1% MDV 20ML VIAL SQ PRN; +LR 1,000 ML IV ONE; -SUCR1TAB56; +SUCR1TAB56 PO
[2022-02-15] MEDS ORDERED: ALBUTEROL SULFATE 2.5 MG/0.5 ML INH NEB SOLN As Ordered ONE (06:58)
[2022-02-15] MEDS ORDERED: ALBUTEROL SULFATE 2.5 MG/0.5 ML INH NEB SOLN INH ONE (07:00)
[2022-02-15] MEDS ORDERED: BUPIVACAINE HCL 0.25% 10ML VIAL As Ordered ONE (07:14)
[2022-02-15] MEDS ORDERED: LIDOCAINE 1% SDV 30ML VIAL As Ordered ONE (07:14)
[2022-02-15] MEDS ORDERED: BUPIVACAINE HCL 0.25% 30ML VIAL As Ordered ONE (07:15)
[2022-02-15] MEDS ORDERED: BUPIVACAINE LIPOSOME/PF 1.3% 20ML VIAL (13.3MG/ML)(EXPAREL) As Ordered ONE (07:15)
[2022-02-15] MEDS ORDERED: LIDOCAINE 2% 100MG/5ML SDV (FOR ANES.) As Ordered ONE (07:18)
[2022-02-15] MEDS ORDERED: fentaNYL 250 MCG/5 ML INJECTION As Ordered ONE (07:18)
[2022-02-15] MEDS ORDERED: propofoL 200 MG/20 ML VIAL As Ordered ONE (07:18)
[2022-02-15] MEDS ORDERED: ROCURONIUM BROMIDE 50 MG/5 ML VIAL As Ordered ONE ×2 (07:18→08:30)
[2022-02-15] MEDS ORDERED: MIDAZOLAM INJ 2MG/2ML VIAL (J2250 PER 1MG) As Ordered ONE (07:19)
[2022-02-15] MEDS ORDERED: ceFAZolin SOD 2 GM in IV 1 EA IV ONE (07:20)
[2022-02-15] MEDS ORDERED: ceFAZolin 2 GM/D5W 50 ML IV BAG (J0690 PER 500MG) As Ordered ONE (07:34)
[2022-02-15] MEDS ORDERED: KETOROLAC 60MG 2ML VIAL As Ordered ONE (08:10)
[2022-02-15] MEDS ORDERED: METOCLOPRAMIDE INJ 10MG/2ML VIAL (J2765 PER 1) As Ordered ONE (08:10)
[2022-02-15] MEDS ORDERED: ONDANSETRON 4MG/2ML VIAL As Ordered ONE (08:10)
[2022-02-15] MEDS ORDERED: ALBUTEROL 6.7GM INHALER **FOR ANES. CART/OMNICELL ONLY As Ordered ONE (08:10)
[2022-02-15] MEDS ORDERED: ACETAMINOPHEN 1000MG 100ML IV BTL (OFIRMEV) (J0131 PER 10MG) As Ordered ONE (08:10)
[2022-02-15] MEDS ORDERED: SUGAMMADEX SODIUM 500 MG/5 ML VIAL (BRIDION) As Ordered ONE (09:04)
[2022-02-15] MEDS ORDERED: fentaNYL 100 MCG/2 ML INJECTION As Ordered ONE (11:02)
[2022-02-15] MEDS ORDERED: PERCOCET 5MG/325MG TAB PO PRN ×2 (11:20)
[2022-02-15] MEDS ORDERED: ALBUTEROL 90 MCG/ACT 8GM HFA INHALER INH PRN (11:20)
[2022-02-15] MEDS ORDERED: ONDANSETRON 4MG/2ML VIAL IV PRN ×2 (11:20→11:35)
[2022-02-15] MEDS ORDERED: LR 1,000 ML IV SCH ×2 (11:20→11:35)
[2022-02-15] MEDS ORDERED: ACETAMINOPHEN TAB 650MG DOSE (2X325MG) PO PRN (11:20)
[2022-02-15] MEDS ORDERED: HYDROMORPHONE HCL 0.5 MG/ 0.5 ML SYRINGE (J1170 PER 1) IV PRN (11:35)
[2022-02-15] MEDS ORDERED: fentaNYL 100 MCG/2 ML INJECTION IV PRN (11:35)
[2022-02-15] MEDS: oxyCODONE 5MG TAB PO PRN ×2 (12:32→13:04)
[2022-02-15] MEDS ORDERED: ZIPR80CA12 PO (14:41)
[2022-02-15] MEDS ORDERED: TRUL0.5I SC (14:41)
[2022-02-15] MEDS ORDERED: HOME MED LIST COMPLETE! XX SCH (14:45)
[2022-02-15] MEDS: metFORMIN (GLUCOPHAGE) 1000MG TABLET PO SCH (17:57)
[2022-02-15] MEDS: KETOROLAC 30 MG/ML 1ML VIAL IV SCH ×2 (17:59→22:10)
[2022-02-15] MEDS ORDERED: ZIPRASIDONE 20MG CAPSULE (GEODON) PO SCH (21:00)
[2022-02-15] MEDS ORDERED: traZODone 100 MG TAB PO SCH (21:00)
[2022-02-15] MEDS ORDERED: ZIPRASIDONE 80 MG CAP (GEODON) PO SCH (21:54)
[2022-02-15] MEDS: OMEPRAZOLE 20MG CAP PO SCH (22:10)
[2022-02-15] MEDS: SENOKOT S TAB PO SCH (22:11)
[2022-02-15] MEDS: BENZTROPINE 0.5 MG TAB PO SCH (22:11)
[2022-02-15] MEDS: hydrOXYzine 50 MG TAB PO SCH (22:11)
[2022-02-15] MEDS: ZIPRASIDONE 80 MG CAP (GEODON) PO SCH (22:11)
[2022-02-15] MEDS: busPIRone 10 MG TAB PO SCH (22:11)
[2022-02-16 02:00] VITALS: BP 137/80
[2022-02-16] MEDS: KETOROLAC 30 MG/ML 1ML VIAL IV SCH ×2 (05:40→10:55)
[2022-02-16 06:00] VITALS: BP 138/80
[2022-02-16 06:09] LABS: BASO % 0.3 % (0.0-1.0); EOS # 0.2 10^3/uL (0.0-0.5); EOS % 2.4 % (0.0-3.0); HEMATOCRIT 38.9 % (42.0-52.0); HEMOGLOBIN 12.1 g/dl (13.5-17.5); LYMPH # 1.8 10^3/uL (1.5-5.0); LYMPH % 20.7 % (24.0-44.0); MEAN CORPUSCULAR HEMOGLOBIN 26.1 pg (27.0-33.0); MEAN CORPUSCULAR HGB CONC 31.1 g/dl (32.0-36.5); MEAN CORPUSCULAR VOLUME 83.8 fl (80.0-96.0); MONO # 0.9 10^3/uL (0.0-0.8); MONO % 9.6 % (2.0-8.0); NEUTROPHILS # 5.9 10^3/uL (1.5-8.5); NEUTROPHILS % 66.4 % (36.0-66.0); PLATELET COUNT, AUTOMATED 265 10^3/uL (150-450); RED BLOOD COUNT 4.64 10^6/uL (4.30-6.10); WHITE BLOOD COUNT 8.9 10^3/uL (4.0-10.0)
[2022-02-16 06:27] LABS: BLOOD UREA NITROGEN 11 MG/DL (7-18); CALCIUM LEVEL 8.5 MG/DL (8.5-10.1); CARBON DIOXIDE LEVEL 31 MEQ/L (21-32); CHLORIDE LEVEL 104 MEQ/L (98-107); GLOMERULAR FILTRATION RATE > 60.0 (>60); GLUCOSE, FASTING 129 MG/DL (70-100); POTASSIUM SERUM 3.9 MEQ/L (3.5-5.1); SODIUM LEVEL 139 MEQ/L (136-145)
[2022-02-16] MEDS: BENZTROPINE 0.5 MG TAB PO SCH (08:38)
[2022-02-16] MEDS: ZIPRASIDONE 80 MG CAP (GEODON) PO SCH (08:38)
[2022-02-16] MEDS: busPIRone 10 MG TAB PO SCH (08:38)
[2022-02-16] MEDS: metFORMIN (GLUCOPHAGE) 1000MG TABLET PO SCH (08:39)
[2022-02-16] MEDS: hydrOXYzine 50 MG TAB PO SCH (08:39)
[2022-02-16] MEDS: SENOKOT S TAB PO SCH (08:39)
[2022-02-16] MEDS: OMEPRAZOLE 20MG CAP PO SCH (08:39)
[2022-02-16 09:00] VITALS: O2SAT 90
[2022-02-16] MEDS ORDERED: DULoxetine 30MG CAPSULE (CYMBALTA) PO SCH (09:00)
[2022-02-16] MEDS ORDERED: FLUTICASONE PROP 0.05% NASAL SPRAY 16 GM (FLONASE) NARES SCH (09:00)
[2022-02-16] MEDS ORDERED: buPROPion **XL** TABLET 150MG (WELLBUTRIN XL) PO SCH (09:00)
[2022-02-16] MEDS ORDERED: MULTIVITAMINS/MINERALS THERAP 1 TAB PO SCH (09:00)
[2022-02-16] MEDS ORDERED: FUROSEMIDE 40 MG TAB PO SCH (09:00)
[2022-02-16] MEDS ORDERED: ATORVASTATIN 20 MG TAB PO SCH (09:00)
[2022-02-16] MEDS ORDERED: ENOXAPARIN 40MG/0.4ML SYRINGE (J1650 PER 10MG) SC SCH (09:00)
[2022-02-16] MEDS ORDERED: HYDR-3713 PO (09:07)
[2022-02-16 10:00] VITALS: BP 139/80
== END 2022-02-16 11:30 | disposition home or self-care (01) ==
LOC: M SDC 06:17 → M MS5PR 13:25 → M SDC 02-16 11:30
PROVIDERS: ATTEND Surgery
DX: K42.0 Umbilical hernia with obstruction, without gangrene (principal); M62.08 Separation of muscle (nontraumatic), other site; E66.01 Morbid (severe) obesity due to excess calories; G47.33 Obstructive sleep apnea (adult) (pediatric); J44.9 Chronic obstructive pulmonary disease, unspecified; Z98.84 Bariatric surgery status; F17.218 Nicotine dependence, cigarettes, with other nicotine-induced disorders; F31.9 Bipolar disorder, unspecified; F32.9 Major depressive disorder, single episode, unspecified; F41.9 Anxiety disorder, unspecified; F25.9 Schizoaffective disorder, unspecified; Z79.84 Long term (current) use of oral hypoglycemic drugs; E11.9 Type 2 diabetes mellitus without complications; K44.9 Diaphragmatic hernia without obstruction or gangrene; K21.9 Gastro-esophageal reflux disease without esophagitis; G43.909 Migraine, unspecified, not intractable, without status migrainosus; Z79.899 Other long term (current) drug therapy
CPT/HCPCS: 36415; 49653; 80048; 85025; 88302; 96372; 96374; 96376; C1781; C9290; J0131; J0690; J1644; J1650; J1885; J2250; J2405; J2765; J3010; S2900

== ENCOUNTER → 2022-06-20 | Outpatient (REF) | payer MEDICARE, MEDICAID ==
[~2022-06-20] MED LIST changes: -CelecoXIB 400 MG CAP PO ONE; -HEPARIN SOD (PORCINE) 5000UNITS/ML 1ML VIAL/SYRINGE SQ SCH; +HYDR-3713 PO; -LIDOCAINE 1% MDV 20ML VIAL SQ PRN; -LR 1,000 ML IV ONE; +TRUL0.5I SC
[2022-06-21 12:57] LABS: HEMATOCRIT 45.3 % (42.0-52.0); HEMOGLOBIN 13.8 g/dl (13.5-17.5); MEAN CORPUSCULAR HGB CONC 30.5 g/dl (32.0-36.5); MEAN CORPUSCULAR VOLUME 82.1 fl (80.0-96.0); PLATELET COUNT, AUTOMATED 343 10^3/uL (150-450); RED BLOOD COUNT 5.52 10^6/uL (4.30-6.10); WHITE BLOOD COUNT 9.8 10^3/uL (4.0-10.0)
[2022-06-21 13:35] LABS: HEMOGLOBIN A1c 6.5 %
[2022-06-21 13:57] LABS: ALBUMIN 4.1 GM/DL (3.2-5.2); ALT/SGPT 17 U/L (12-78); BILIRUBIN,TOTAL 0.6 MG/DL (0.2-1.0); BLOOD UREA NITROGEN 10 MG/DL (7-18); CALCIUM LEVEL 9.2 MG/DL (8.5-10.1); CARBON DIOXIDE LEVEL 28 MEQ/L (21-32); CHLORIDE LEVEL 106 MEQ/L (98-107); CHOLESTEROL LEVEL 76 MG/DL (<200); CHOLESTEROL RISK RATIO 2.714 (<5); CREATININE FOR GFR 1.19 MG/DL (0.70-1.30); GLOMERULAR FILTRATION RATE > 60.0 (>60); GLUCOSE, FASTING 85 MG/DL (70-100); HDL CHOLESTEROL 28 MG/DL (>40); LDL CHOLESTEROL 7 MG/DL (<100); NON-HDL-C 48 MG/DL; POTASSIUM SERUM 5.8 MEQ/L (3.5-5.1); SODIUM LEVEL 138 MEQ/L (136-145); TOTAL PROTEIN 7.5 GM/DL (6.4-8.2); TRIGLYCERIDES LEVEL 207 MG/DL (<150)
[2022-06-21 14:26] LABS: TOTAL 25(OH) VITAMIN D 43.4 NG/ML (30.0-100.0)
== END ==
LOC: M SFHCADAM 15:25
PROVIDERS: ATTEND Physician Assistant
DX: M54.50 Low back pain, unspecified (principal); M25.559 Pain in unspecified hip; E11.42 Type 2 diabetes mellitus with diabetic polyneuropathy; F17.218 Nicotine dependence, cigarettes, with other nicotine-induced disorders; E78.5 Hyperlipidemia, unspecified; E55.9 Vitamin D deficiency, unspecified; Z79.899 Other long term (current) drug therapy

== ENCOUNTER → 2022-06-20 | Outpatient (CLI) | payer MEDICARE, MEDICAID | LOC: M ADAMS 15:36 | PROVIDERS: ATTEND Physician Assistant | DX: M54.50 Low back pain, unspecified (principal); M16.12 Unilateral primary osteoarthritis, left hip ==

== ENCOUNTER → 2022-07-21 | Outpatient (CLI) | payer MEDICAID | LOC: M LAB 11:01 | PROVIDERS: ATTEND Physician Assistant | DX: E87.5 Hyperkalemia (principal) ==

== ENCOUNTER → 2022-10-26 | Outpatient (CLI) | payer MEDICARE, OTHER, MEDICAID ==
[~2022-10-26] MED LIST changes: -DOXY-350 PO; +DOXY-444 PO
== END ==
LOC: M PAIN 08:00
PROVIDERS: ATTEND Nurse Practitioner Family
DX: M51.16 Intervertebral disc disorders with radiculopathy, lumbar region (principal); G89.29 Other chronic pain; E11.9 Type 2 diabetes mellitus without complications; K21.9 Gastro-esophageal reflux disease without esophagitis; G47.33 Obstructive sleep apnea (adult) (pediatric); F17.210 Nicotine dependence, cigarettes, uncomplicated; Z86.59 Personal history of other mental and behavioral disorders; Z87.820 Personal history of traumatic brain injury; Z88.6 Allergy status to analgesic agent; Z79.51 Long term (current) use of inhaled steroids; Z79.84 Long term (current) use of oral hypoglycemic drugs; Z79.85 Long-term (current) use of injectable non-insulin antidiabetic drugs; Z79.899 Other long term (current) drug therapy

== ENCOUNTER 2022-12-08 13:37 | Inpatient (IN) | payer OTHER, MEDICAID ==
[~2022-12-08] VITALS: Ht 162.6 cm; Wt 105.1 kg
[2022-12-08] MEDS ORDERED: ACETAMINOPHEN 500 MG TAB PO ONE (14:05)
[2022-12-08 14:37] LABS: RSV AMPLIFICATION NEGATIVE (NEGATIVE)
[2022-12-08] MEDS ORDERED: ACETAMINOPHEN TAB 650MG DOSE (2X325MG) PO ONE (15:30)
[2022-12-08] MEDS ORDERED: NS 1,000 ML IV ONE ×2 (15:30→17:30)
[2022-12-08 16:08] LABS: BASO % 0.3 % (0.0-1.0); EOS % 0.1 % (0.0-3.0); HEMATOCRIT 43.4 % (42.0-52.0); HEMOGLOBIN 13.3 g/dl (13.5-17.5); LYMPH # 0.5 10^3/uL (1.5-5.0); LYMPH % 3.5 % (24.0-44.0); MEAN CORPUSCULAR HGB CONC 30.6 g/dl (32.0-36.5); MEAN CORPUSCULAR VOLUME 81.7 fl (80.0-96.0); MONO % 6.8 % (2.0-8.0); NEUTROPHILS # 13.6 10^3/uL (1.5-8.5); NEUTROPHILS % 88.7 % (36.0-66.0); PLATELET COUNT, AUTOMATED 326 10^3/uL (150-450); RED BLOOD COUNT 5.31 10^6/uL (4.30-6.10); WHITE BLOOD COUNT 15.3 10^3/uL (4.0-10.0)
[2022-12-08 16:18] LABS: ABG BASE EXCESS -2.4 (-2.0-2.0); ABG HCO3 21.6 MEQ/L (22.0-26.0); ABG O2 SATURATION 92.6 % (95.0-99.0); ABG PARTIAL PRESSURE CO2 34.7 mmHg (35.0-45.0); ABG PARTIAL PRESSURE O2 63.6 mmHg (75.0-100.0); ABG STANDARD HCO3 22.4 MEQ/L (22.0-26.0); ABG TOTAL CO2 22.6 MEQ/L (22.0-29.0); ABG pH (ARTERIAL) 7.411 UNITS (7.350-7.450)
[2022-12-08 16:27] LABS: C REACTIVE PROTEIN QUANTITATIV 4.1 MG/DL (<1.0)
[2022-12-08 16:32] LABS: ALBUMIN 3.8 G/DL (3.2-5.2); BILIRUBIN,DIRECT 0.2 MG/DL (<0.4); BILIRUBIN,TOTAL 0.6 MG/DL (0.3-1.2)
[2022-12-08 16:52] LABS: ERYTHROCYTE SEDIMENTATION RATE 54 mm/hr (0-15)
[2022-12-08] MEDS ORDERED: cefTRIAXone SOD 1 GM in D5W MINI-BAG PLUS 50 ML IV ONE (17:30)
[2022-12-08] MEDS ORDERED: ALBUTEROL SULFATE 2.5MG/0.5ML INH NEB SOLN NEB PRN (18:35)
[2022-12-08] MEDS ORDERED: ONDANSETRON 4MG 2ML VIAL IV PRN (18:35)
[2022-12-08] MEDS ORDERED: IBUPROFEN 600MG TAB PO ONE (18:35)
[2022-12-08] MEDS ORDERED: IBUPROFEN 800 MG TAB PO ONE (18:35)
[2022-12-08] MEDS ORDERED: ALBU8.5H INH (20:11)
[2022-12-08] MEDS ORDERED: med rec comment (20:11)
[2022-12-08] MEDS ORDERED: HOME MED LIST COMPLETE! XX SCH (20:15)
[2022-12-08 20:45] VITALS: BP 160/86
[2022-12-08] MEDS: INSULIN LISPRO (NovoLOG) PER UNIT SC SCH (21:00)
[2022-12-08] MEDS ORDERED: GLUCOSE 4GM CHEW TABLET PO PRN (21:10)
[2022-12-08] MEDS ORDERED: GLUCAGON INJ 1MG VIAL SC PRN (21:10)
[2022-12-08] MEDS ORDERED: FLUTICASONE PROP 0.05% NASAL SPRAY 16 GM (FLONASE) NARES PRN (21:10)
[2022-12-08] MEDS ORDERED: DEXTROSE 50% 50ML SYRINGE IV PRN (21:10)
[2022-12-08] MEDS: busPIRone 10 MG TAB PO SCH (23:17)
[2022-12-08] MEDS: OMEPRAZOLE 20MG CAP PO SCH (23:18)
[2022-12-08] MEDS: BENZTROPINE 0.5 MG TAB PO SCH (23:18)
[2022-12-08] MEDS: traZODone 100 MG TAB PO SCH (23:18)
[2022-12-08] MEDS: ZIPRASIDONE 80 MG CAP (GEODON) PO SCH (23:18)
[2022-12-08] MEDS: hydrOXYzine 50 MG TAB PO SCH (23:18)
[2022-12-08] MEDS: SUCRALFATE 1 GM TAB PO SCH (23:18)
[2022-12-09 05:29] LABS: BASO % 0.2 % (0.0-1.0); EOS % 0.1 % (0.0-3.0); HEMATOCRIT 39.1 % (42.0-52.0); HEMOGLOBIN 11.9 g/dl (13.5-17.5); LYMPH # 0.5 10^3/uL (1.5-5.0); LYMPH % 5.9 % (24.0-44.0); MEAN CORPUSCULAR HEMOGLOBIN 24.9 pg (27.0-33.0); MEAN CORPUSCULAR HGB CONC 30.4 g/dl (32.0-36.5); MONO # 0.4 10^3/uL (0.0-0.8); MONO % 5.1 % (2.0-8.0); NEUTROPHILS # 7.7 10^3/uL (1.5-8.5); NEUTROPHILS % 88.2 % (36.0-66.0); PLATELET COUNT, AUTOMATED 243 10^3/uL (150-450); RED BLOOD COUNT 4.77 10^6/uL (4.30-6.10); WHITE BLOOD COUNT 8.7 10^3/uL (4.0-10.0)
[2022-12-09 05:35] VITALS: BP 138/79
[2022-12-09 05:59] LABS: BLOOD UREA NITROGEN 13 MG/DL (9-23); CALCIUM LEVEL 8.5 MG/DL (8.5-10.1); CARBON DIOXIDE LEVEL 25 MMOL/L (20-31); CHLORIDE LEVEL 109 MMOL/L (98-107); CREATININE FOR GFR 0.79 MG/DL (0.70-1.30); GLOMERULAR FILTRATION RATE > 60.0 (>60); GLUCOSE, FASTING 116 MG/DL (60-100); POTASSIUM SERUM 3.6 MMOL/L (3.5-5.1); SODIUM LEVEL 141 MMOL/L (136-145)
[2022-12-09] MEDS: TIOTROPIUM INHALER/CAPSULE (SPIRIVA) INH SCH (07:53)
[2022-12-09] MEDS ORDERED: FUROSEMIDE 40 MG TAB PO SCH (09:00)
[2022-12-09] MEDS ORDERED: DULoxetine 30MG CAPSULE (CYMBALTA) PO SCH (09:00)
[2022-12-09] MEDS: OMEPRAZOLE 20MG CAP PO SCH ×2 (09:35→23:09)
[2022-12-09] MEDS: ZIPRASIDONE 80 MG CAP (GEODON) PO SCH ×2 (09:35→23:09)
[2022-12-09] MEDS: DULoxetine 30MG CAPSULE (CYMBALTA) PO SCH (09:35)
[2022-12-09] MEDS: busPIRone 10 MG TAB PO SCH ×2 (09:35→23:09)
[2022-12-09] MEDS: SUCRALFATE 1 GM TAB PO SCH ×4 (09:35→23:07)
[2022-12-09] MEDS: INSULIN LISPRO (NovoLOG) PER UNIT SC SCH ×4 (09:36→20:34)
[2022-12-09] MEDS: ATORVASTATIN 20 MG TAB PO SCH (09:36)
[2022-12-09] MEDS: BENZTROPINE 0.5 MG TAB PO SCH ×2 (09:36→23:08)
[2022-12-09] MEDS: buPROPion **XL** TABLET 150MG (WELLBUTRIN XL) PO SCH (09:36)
[2022-12-09] MEDS: hydrOXYzine 50 MG TAB PO SCH ×2 (09:36→23:08)
[2022-12-09] MEDS ORDERED: cefTRIAXone SOD 2 GM in D5W MINI-BAG PLUS 50 ML IV SCH (12:00)
[2022-12-09] MEDS: IBUPROFEN 800 MG TAB PO PRN ×2 (13:35→23:07)
[2022-12-09 13:41] VITALS: BP 164/78
[2022-12-09] MEDS: ACETAMINOPHEN TAB 650MG DOSE (2X325MG) PO PRN (17:06)
[2022-12-09 21:00] VITALS: BP 126/56
[2022-12-09] MEDS: traZODone 100 MG TAB PO SCH (23:08)
[2022-12-10 05:56] LABS: BASO % 0.4 % (0.0-1.0); EOS % 0.1 % (0.0-3.0); HEMATOCRIT 39.6 % (42.0-52.0); LYMPH # 0.4 10^3/uL (1.5-5.0); LYMPH % 5.7 % (24.0-44.0); MEAN CORPUSCULAR HEMOGLOBIN 24.8 pg (27.0-33.0); MEAN CORPUSCULAR HGB CONC 30.3 g/dl (32.0-36.5); MEAN CORPUSCULAR VOLUME 81.8 fl (80.0-96.0); MONO # 0.7 10^3/uL (0.0-0.8); MONO % 9.5 % (2.0-8.0); NEUTROPHILS # 5.9 10^3/uL (1.5-8.5); NEUTROPHILS % 83.9 % (36.0-66.0); PLATELET COUNT, AUTOMATED 173 10^3/uL (150-450); RED BLOOD COUNT 4.84 10^6/uL (4.30-6.10)
[2022-12-10 06:00] VITALS: BP_SYST 126; BP_SYST 130; BP_DIAS 56; BP_DIAS 65
[2022-12-10 06:16] LABS: BLOOD UREA NITROGEN 12 MG/DL (9-23); CARBON DIOXIDE LEVEL 24 MMOL/L (20-31); CHLORIDE LEVEL 108 MMOL/L (98-107); CREATININE FOR GFR 0.73 MG/DL (0.70-1.30); GLOMERULAR FILTRATION RATE > 60.0 (>60); GLUCOSE, FASTING 118 MG/DL (60-100); POTASSIUM SERUM 3.7 MMOL/L (3.5-5.1); SODIUM LEVEL 139 MMOL/L (136-145)
[2022-12-10] MEDS: OMEPRAZOLE 20MG CAP PO SCH ×2 (08:15→20:44)
[2022-12-10] MEDS: ZIPRASIDONE 80 MG CAP (GEODON) PO SCH ×2 (08:15→20:44)
[2022-12-10] MEDS: busPIRone 10 MG TAB PO SCH ×2 (08:15→20:43)
[2022-12-10] MEDS: buPROPion **XL** TABLET 150MG (WELLBUTRIN XL) PO SCH (08:15)
[2022-12-10] MEDS: ATORVASTATIN 20 MG TAB PO SCH (08:15)
[2022-12-10] MEDS: INSULIN LISPRO (NovoLOG) PER UNIT SC SCH ×4 (08:15→20:44)
[2022-12-10] MEDS: DULoxetine 30MG CAPSULE (CYMBALTA) PO SCH (08:16)
[2022-12-10] MEDS: BENZTROPINE 0.5 MG TAB PO SCH ×2 (08:16→20:44)
[2022-12-10] MEDS: SUCRALFATE 1 GM TAB PO SCH ×4 (08:16→20:43)
[2022-12-10] MEDS: hydrOXYzine 50 MG TAB PO SCH ×2 (08:17→21:26)
[2022-12-10] MEDS: TIOTROPIUM INHALER/CAPSULE (SPIRIVA) INH SCH (08:47)
[2022-12-10] MEDS: PENICILLIN G POTASSIUM 5 MU IV 5 MU in D5W MINI-BAG PLUS 100 ML IV SCH ×4 (12:17→23:40)
[2022-12-10] MEDS: CLINDAMYCIN 900 MG in IV 1 EA IV SCH ×2 (13:52→21:26)
[2022-12-10 14:00] VITALS: BP 130/60
[2022-12-10] MEDS: MIRALAX *UNIT DOSE* 17GM PACKET PO SCH (17:59)
[2022-12-10 20:00] VITALS: BP 126/57
[2022-12-10] MEDS: traZODone 100 MG TAB PO SCH (20:43)
[2022-12-10] MEDS: ACETAMINOPHEN TAB 650MG DOSE (2X325MG) PO PRN (20:43)
[2022-12-11] MEDS: PENICILLIN G POTASSIUM 5 MU IV 5 MU in D5W MINI-BAG PLUS 100 ML IV SCH ×3 (04:24→12:58)
[2022-12-11] MEDS: CLINDAMYCIN 900 MG in IV 1 EA IV SCH ×3 (05:42→21:16)
[2022-12-11 06:00] VITALS: BP 118/66
[2022-12-11 06:08] LABS: HEMATOCRIT 38.1 % (42.0-52.0); HEMOGLOBIN 11.4 g/dl (13.5-17.5); MEAN CORPUSCULAR HEMOGLOBIN 24.6 pg (27.0-33.0); MEAN CORPUSCULAR HGB CONC 29.9 g/dl (32.0-36.5); MEAN CORPUSCULAR VOLUME 82.1 fl (80.0-96.0); PLATELET COUNT, AUTOMATED 163 10^3/uL (150-450); RED BLOOD COUNT 4.64 10^6/uL (4.30-6.10); WHITE BLOOD COUNT 6.8 10^3/uL (4.0-10.0)
[2022-12-11 06:33] LABS: BLOOD UREA NITROGEN 10 MG/DL (9-23); CALCIUM LEVEL 8.4 MG/DL (8.5-10.1); CARBON DIOXIDE LEVEL 28 MMOL/L (20-31); CHLORIDE LEVEL 106 MMOL/L (98-107); CREATININE FOR GFR 0.82 MG/DL (0.70-1.30); GLOMERULAR FILTRATION RATE > 60.0 (>60); GLUCOSE, FASTING 131 MG/DL (60-100); POTASSIUM SERUM 4.3 MMOL/L (3.5-5.1); SODIUM LEVEL 139 MMOL/L (136-145)
[2022-12-11 07:05] LABS: ATYPICAL LYMPH 5 % (0-5); EOSINOPHILS 2 % (0-3); LYMPHOCYTES 10 % (16-44); MONOCYTES 11 % (0-5); NEUTROPHILS 59 % (28-66)
[2022-12-11 07:06] LABS: HYPOCHROMASIA 2+
[2022-12-11 07:07] LABS: PLATELET ESTIMATE NORMAL (NORMAL)
[2022-12-11 08:07] VITALS: O2SAT 93
[2022-12-11] MEDS: TIOTROPIUM INHALER/CAPSULE (SPIRIVA) INH SCH (08:07)
[2022-12-11] MEDS: BENZTROPINE 0.5 MG TAB PO SCH ×2 (08:29→21:16)
[2022-12-11] MEDS: MIRALAX *UNIT DOSE* 17GM PACKET PO SCH (08:29)
[2022-12-11] MEDS: ZIPRASIDONE 80 MG CAP (GEODON) PO SCH ×2 (08:30→21:16)
[2022-12-11] MEDS: INSULIN LISPRO (NovoLOG) PER UNIT SC SCH ×4 (08:31→21:00)
[2022-12-11] MEDS: DULoxetine 30MG CAPSULE (CYMBALTA) PO SCH (08:31)
[2022-12-11] MEDS: SUCRALFATE 1 GM TAB PO SCH ×4 (08:32→21:16)
[2022-12-11] MEDS: busPIRone 10 MG TAB PO SCH ×2 (08:32→21:16)
[2022-12-11] MEDS: OMEPRAZOLE 20MG CAP PO SCH ×2 (08:33→21:17)
[2022-12-11] MEDS: ACETAMINOPHEN TAB 650MG DOSE (2X325MG) PO PRN ×2 (08:34→21:20)
[2022-12-11] MEDS: buPROPion **XL** TABLET 150MG (WELLBUTRIN XL) PO SCH (08:34)
[2022-12-11] MEDS: FUROSEMIDE 40 MG TAB PO SCH (08:35)
[2022-12-11] MEDS: ATORVASTATIN 20 MG TAB PO SCH (08:35)
[2022-12-11 08:37] VITALS: BP 134/60
[2022-12-11] MEDS: hydrOXYzine 50 MG TAB PO SCH ×2 (08:59→21:16)
[2022-12-11] MEDS: IBUPROFEN 800 MG TAB PO PRN (10:56)
[2022-12-11 14:00] VITALS: BP 129/66
[2022-12-11] MEDS: cefTRIAXone SOD 2 GM in D5W MINI-BAG PLUS 50 ML IV SCH (18:05)
[2022-12-11 20:00] VITALS: BP 132/67
[2022-12-11] MEDS: traZODone 100 MG TAB PO SCH (21:16)
[2022-12-12 00:37] VITALS: O2SAT 93
[2022-12-12] MEDS: CLINDAMYCIN 900 MG in IV 1 EA IV SCH ×3 (05:23→21:40)
[2022-12-12 06:00] VITALS: BP 143/71
[2022-12-12 06:31] LABS: BASO % 0.6 % (0.0-1.0); EOS # 0.1 10^3/uL (0.0-0.5); EOS % 2.1 % (0.0-3.0); HEMATOCRIT 37.6 % (42.0-52.0); HEMOGLOBIN 11.3 g/dl (13.5-17.5); LYMPH # 1.6 10^3/uL (1.5-5.0); LYMPH % 23.3 % (24.0-44.0); MEAN CORPUSCULAR HEMOGLOBIN 24.6 pg (27.0-33.0); MEAN CORPUSCULAR HGB CONC 30.1 g/dl (32.0-36.5); MEAN CORPUSCULAR VOLUME 81.7 fl (80.0-96.0); NEUTROPHILS % 59.6 % (36.0-66.0); PLATELET COUNT, AUTOMATED 181 10^3/uL (150-450); WHITE BLOOD COUNT 6.8 10^3/uL (4.0-10.0)
[2022-12-12 06:38] LABS: BLOOD UREA NITROGEN 11 MG/DL (9-23); CALCIUM LEVEL 8.3 MG/DL (8.5-10.1); CARBON DIOXIDE LEVEL 30 MMOL/L (20-31); CHLORIDE LEVEL 106 MMOL/L (98-107); CREATININE FOR GFR 0.81 MG/DL (0.70-1.30); GLOMERULAR FILTRATION RATE > 60.0 (>60); GLUCOSE, FASTING 117 MG/DL (60-100); POTASSIUM SERUM 4.3 MMOL/L (3.5-5.1); SODIUM LEVEL 141 MMOL/L (136-145)
[2022-12-12 08:15] VITALS: O2SAT 96
[2022-12-12] MEDS: TIOTROPIUM INHALER/CAPSULE (SPIRIVA) INH SCH (08:15)
[2022-12-12] MEDS ORDERED: ENOXAPARIN 40MG/0.4ML SYRINGE (J1650 PER 10MG) SC SCH (09:00)
[2022-12-12] MEDS: DULoxetine 30MG CAPSULE (CYMBALTA) PO SCH (09:44)
[2022-12-12] MEDS: ZIPRASIDONE 80 MG CAP (GEODON) PO SCH ×2 (09:44→21:39)
[2022-12-12] MEDS: busPIRone 10 MG TAB PO SCH ×2 (09:45→21:39)
[2022-12-12] MEDS: BENZTROPINE 0.5 MG TAB PO SCH ×2 (09:45→21:39)
[2022-12-12] MEDS: buPROPion **XL** TABLET 150MG (WELLBUTRIN XL) PO SCH (09:46)
[2022-12-12] MEDS: MIRALAX *UNIT DOSE* 17GM PACKET PO SCH (09:46)
[2022-12-12] MEDS: hydrOXYzine 50 MG TAB PO SCH ×2 (09:46→21:40)
[2022-12-12] MEDS: SUCRALFATE 1 GM TAB PO SCH ×4 (09:46→21:40)
[2022-12-12] MEDS: OMEPRAZOLE 20MG CAP PO SCH ×2 (09:46→21:40)
[2022-12-12] MEDS: FUROSEMIDE 40 MG TAB PO SCH (09:46)
[2022-12-12] MEDS: ATORVASTATIN 20 MG TAB PO SCH (09:46)
[2022-12-12] MEDS: INSULIN LISPRO (NovoLOG) PER UNIT SC SCH ×4 (09:47→21:00)
[2022-12-12] MEDS: ACETAMINOPHEN TAB 650MG DOSE (2X325MG) PO PRN (09:48)
[2022-12-12 11:13] VITALS: O2SAT 93
[2022-12-12] MEDS: IBUPROFEN 800 MG TAB PO PRN ×2 (11:56→21:53)
[2022-12-12 14:00] VITALS: BP 132/80
[2022-12-12] MEDS: cefTRIAXone SOD 2 GM in D5W MINI-BAG PLUS 50 ML IV SCH (19:05)
[2022-12-12 20:30] VITALS: BP 129/74
[2022-12-12] MEDS: traZODone 100 MG TAB PO SCH (21:40)
[2022-12-13 05:10] VITALS: BP 125/67
[2022-12-13] MEDS: CLINDAMYCIN 900 MG in IV 1 EA IV SCH ×2 (05:25→13:43)
[2022-12-13 05:40] LABS: BASO # 0.1 10^3/uL (0.0-0.2); BASO % 0.8 % (0.0-1.0); EOS # 0.2 10^3/uL (0.0-0.5); EOS % 2.5 % (0.0-3.0); HEMATOCRIT 35.4 % (42.0-52.0); HEMOGLOBIN 10.9 g/dl (13.5-17.5); LYMPH # 1.9 10^3/uL (1.5-5.0); LYMPH % 32.6 % (24.0-44.0); MEAN CORPUSCULAR HEMOGLOBIN 25.1 pg (27.0-33.0); MEAN CORPUSCULAR HGB CONC 30.8 g/dl (32.0-36.5); MEAN CORPUSCULAR VOLUME 81.4 fl (80.0-96.0); MONO # 0.7 10^3/uL (0.0-0.8); MONO % 12.4 % (2.0-8.0); NEUTROPHILS % 50.9 % (36.0-66.0); PLATELET COUNT, AUTOMATED 192 10^3/uL (150-450); RED BLOOD COUNT 4.35 10^6/uL (4.30-6.10)
[2022-12-13 06:03] LABS: BLOOD UREA NITROGEN 11 MG/DL (9-23); CALCIUM LEVEL 8.7 MG/DL (8.5-10.1); CARBON DIOXIDE LEVEL 29 MMOL/L (20-31); CHLORIDE LEVEL 104 MMOL/L (98-107); CREATININE FOR GFR 0.88 MG/DL (0.70-1.30); GLOMERULAR FILTRATION RATE > 60.0 (>60); GLUCOSE, FASTING 214 MG/DL (60-100); POTASSIUM SERUM 3.9 MMOL/L (3.5-5.1); SODIUM LEVEL 138 MMOL/L (136-145)
[2022-12-13] MEDS: SUCRALFATE 1 GM TAB PO SCH ×2 (07:30→13:42)
[2022-12-13] MEDS: INSULIN LISPRO (NovoLOG) PER UNIT SC SCH ×2 (07:30→13:43)
[2022-12-13 07:48] VITALS: O2SAT 93
[2022-12-13] MEDS: TIOTROPIUM INHALER/CAPSULE (SPIRIVA) INH SCH (07:48)
[2022-12-13] MEDS: OMEPRAZOLE 20MG CAP PO SCH (08:13)
[2022-12-13] MEDS: BENZTROPINE 0.5 MG TAB PO SCH (08:13)
[2022-12-13] MEDS: DULoxetine 30MG CAPSULE (CYMBALTA) PO SCH (08:13)
[2022-12-13] MEDS: ATORVASTATIN 20 MG TAB PO SCH (08:13)
[2022-12-13] MEDS: FUROSEMIDE 40 MG TAB PO SCH (08:14)
[2022-12-13] MEDS: busPIRone 10 MG TAB PO SCH (08:14)
[2022-12-13] MEDS: buPROPion **XL** TABLET 150MG (WELLBUTRIN XL) PO SCH (08:14)
[2022-12-13] MEDS: ZIPRASIDONE 80 MG CAP (GEODON) PO SCH (08:15)
[2022-12-13] MEDS: hydrOXYzine 50 MG TAB PO SCH (08:20)
[2022-12-13] MEDS: MIRALAX *UNIT DOSE* 17GM PACKET PO SCH (08:25)
[2022-12-13] MEDS ORDERED: FUROSEMIDE 40MG/4ML VIAL IV ONE (10:40)
[2022-12-13 13:57] LABS: APPEARANCE, CSF CLEAR (CLEAR); COLOR, CSF COLORLESS (COLORLESS); CSF TUBE# CELL CNT TUBE 1
[2022-12-13 13:59] LABS: CSF TUBE# CELL CNT TUBE 4
[2022-12-13 14:00] VITALS: BP 128/84
[2022-12-13 14:00] LABS: APPEARANCE, CSF CLEAR (CLEAR); COLOR, CSF COLORLESS (COLORLESS)
[2022-12-13] MEDS ORDERED: AMOX875T2 PO (14:58)
[2022-12-13 15:00] VITALS: BP 120/63
[2022-12-13] MEDS ORDERED: PROBCAP14 PO (15:00)
[2022-12-13 15:35] LABS: CSF TUBE# TP TUBE 2; TOTAL PROTEIN,CSF 52.3 MG/DL (15-45)
[2022-12-13 15:36] LABS: CSF TUBE# GLU TUBE 2
== END 2022-12-13 15:58 | disposition home or self-care (01) | DRG 872 ==
LOC: M ED 13:37 → M ED INP 18:33 → M MSPAV 20:45
PROVIDERS: ADMIT Internal Medicine Nephrology; ATTEND Internal Medicine Nephrology
PROC: 009U3ZX Drainage of Spinal Canal, Percutaneous Approach, Diagnostic (ICD-10-PCS; principal; 2022-12-13 12:10)
DX: A40.9 Streptococcal sepsis, unspecified (principal); Z68.41 Body mass index [BMI] 40.0-44.9, adult; J02.0 Streptococcal pharyngitis; F20.9 Schizophrenia, unspecified; E66.01 Morbid (severe) obesity due to excess calories; J44.9 Chronic obstructive pulmonary disease, unspecified; K04.7 Periapical abscess without sinus; E11.9 Type 2 diabetes mellitus without complications; B95.0 Streptococcus, group A, as the cause of diseases classified elsewhere; E78.5 Hyperlipidemia, unspecified; I10 Essential (primary) hypertension; M51.16 Intervertebral disc disorders with radiculopathy, lumbar region; F32.A Depression, unspecified; K21.9 Gastro-esophageal reflux disease without esophagitis; F17.210 Nicotine dependence, cigarettes, uncomplicated; G47.33 Obstructive sleep apnea (adult) (pediatric); Z87.820 Personal history of traumatic brain injury; Z20.822 Contact with and (suspected) exposure to COVID-19; Z79.84 Long term (current) use of oral hypoglycemic drugs; Z79.899 Other long term (current) drug therapy; Z88.6 Allergy status to analgesic agent

== ENCOUNTER → 2023-12-14 | Outpatient (REF) | payer OTHER, MEDICARE, MEDICAID ==
[~2023-12-14] MED LIST changes: +ALBU8.5H INH; +BENZ0.5T2 PO; -BENZ0.5T23 PO; +PROBCAP14 PO; +med rec comment
[2023-12-14 17:18] LABS: BASO % 0.4 % (0.0-1.0); EOS # 0.2 10^3/uL (0.0-0.5); EOS % 2.2 % (0.0-3.0); HEMATOCRIT 45.3 % (42.0-52.0); HEMOGLOBIN 14.4 g/dl (13.5-17.5); LYMPH # 2.5 10^3/uL (1.5-5.0); LYMPH % 24.6 % (24.0-44.0); MEAN CORPUSCULAR HGB CONC 31.8 g/dl (32.0-36.5); NEUTROPHILS # 6.3 10^3/uL (1.5-8.5); NEUTROPHILS % 62.5 % (36.0-66.0); PLATELET COUNT, AUTOMATED 314 10^3/uL (150-450); RED BLOOD COUNT 5.33 10^6/uL (4.30-6.10)
[2023-12-14 17:36] LABS: CREATININE, URINE 74.7 MG/DL; MAU/CREAT RATIO 5.3 MCG/MG (0.0-30.0)
[2023-12-14 17:46] LABS: ALBUMIN 3.8 G/DL (3.2-5.2); ALKALINE PHOSPHATASE 118 U/L (46-116); ALT/SGPT 17 U/L (7.0-40); AST/SGOT 9 U/L (<34); BILIRUBIN,TOTAL 0.4 MG/DL (0.3-1.2); BLOOD UREA NITROGEN 13 MG/DL (9-23); CALCIUM LEVEL 8.7 MG/DL (8.5-10.1); CARBON DIOXIDE LEVEL 33 MMOL/L (20-31); CHLORIDE LEVEL 106 MMOL/L (98-107); CHOLESTEROL LEVEL 97 MG/DL (<200); CHOLESTEROL RISK RATIO 3.51 (<5); CREATININE FOR GFR 0.88 MG/DL (0.70-1.30); FOLATE 15.2 NG/ML (>5.4); FREE T4 1.05 NG/DL (0.89-1.76); GLOMERULAR FILTRATION RATE > 60.0 (>60); GLUCOSE, FASTING 86 MG/DL (60-100); HDL CHOLESTEROL 27.6 MG/DL (>40); LDL CHOLESTEROL 17.8 MG/DL (<100); NON-HDL-C 69.4 MG/DL; POTASSIUM SERUM 3.8 MMOL/L (3.5-5.1); SODIUM LEVEL 141 MMOL/L (136-145); THYROID STIMULATING HORMONE 2.371 uIU/ML (0.55-4.78); TOTAL 25(OH) VITAMIN D 40.4 NG/ML (20.0-100.0); TOTAL PROTEIN 7.1 G/DL (5.7-8.2); TRIGLYCERIDES LEVEL 258 MG/DL (<150); VITAMIN B12 LEVEL 305 PG/ML (211-911)
[2023-12-14 18:34] LABS: HEMOGLOBIN A1c 6.6 % (4.0-6.0)
== END ==
LOC: M SFHCADAM 15:37
PROVIDERS: ATTEND Physician Assistant
DX: E11.43 Type 2 diabetes mellitus with diabetic autonomic (poly)neuropathy (principal); Z59.82 Transportation insecurity; Z91.199 Patient's noncompliance with other medical treatment and regimen due to unspecified reason; F20.9 Schizophrenia, unspecified; G47.33 Obstructive sleep apnea (adult) (pediatric); F17.218 Nicotine dependence, cigarettes, with other nicotine-induced disorders; Z79.899 Other long term (current) drug therapy

== ENCOUNTER → 2024-09-16 | Outpatient (REF) | payer OTHER, MEDICAID ==
[~2024-09-16] MED LIST changes: +BUPR-597 PO; -BUPR300T92 PO; +DOXY-440 PO; -DOXY-444 PO; -GEOD40CA13 PO; -ZIPR40CA11 PO; +ZIPR40CA21 PO; +ZIPR40CA27 PO; -ZIPR60CA11 PO; +ZIPR60CA21 PO; -ZIPR80CA12 PO; +ZIPR80CA31 PO
[2024-09-16 17:52] LABS: APPEARANCE, URINE CLEAR (CLEAR); BACTERIA, URINE AUTO NEGATIVE (NEGATIVE); BILIRUBIN, URINE AUTO NEGATIVE (NEGATIVE); BLOOD, URINE BLOOD NEGATIVE (NEGATIVE); COLOR, URINE YELLOW (YELLOW); GLUCOSE, URINE (UA) AUTO 3+ mg/dL (NEGATIVE); KETONE, URINE AUTO NEGATIVE (NEGATIVE); LEUKOCYTE ESTERASE, URINE AUTO NEGATIVE (NEGATIVE); MUCUS, URINE SMALL (NEGATIVE); NITRITE, URINE AUTO NEGATIVE (NEGATIVE); PROTEIN, URINE AUTO NEGATIVE (NEGATIVE); RBC, URINE AUTO 0 /HPF (0-3); SQUAMOUS EPITHELIAL CELL UR AU 0 /HPF (0-6); UROBILINOGEN, URINE AUTO 0.2 mg/dL (0.0-2.0); WBC, URINE AUTO 0 /HPF (0-3)
[2024-09-16 18:25] LABS: ALBUMIN 4.2 G/DL (3.2-5.2); ALKALINE PHOSPHATASE 130 U/L (40-129); ALT/SGPT 14 U/L (7.0-40); AST/SGOT 13 U/L (<34); BILIRUBIN,TOTAL 0.9 MG/DL (0.3-1.2); BLOOD UREA NITROGEN 23 MG/DL (9-23); CALCIUM LEVEL 9.6 MG/DL (8.5-10.1); CARBON DIOXIDE LEVEL 31 MMOL/L (20-31); CHLORIDE LEVEL 106 MMOL/L (98-107); CREATININE FOR GFR 0.88 MG/DL (0.70-1.30); GLOMERULAR FILTRATION RATE > 60.0 (>60); GLUCOSE, FASTING 103 MG/DL (60-100); POTASSIUM SERUM 4.1 MMOL/L (3.5-5.1); SODIUM LEVEL 143 MMOL/L (136-145); TOTAL PROTEIN 7.4 G/DL (5.7-8.2)
[2024-09-16 18:42] LABS: HEMOGLOBIN A1c 6.7 % (4.0-6.0)
== END ==
LOC: M SFHCADAM 11:45
PROVIDERS: ATTEND Physician Assistant
DX: E11.9 Type 2 diabetes mellitus without complications (principal); F17.218 Nicotine dependence, cigarettes, with other nicotine-induced disorders; J44.9 Chronic obstructive pulmonary disease, unspecified; G47.33 Obstructive sleep apnea (adult) (pediatric); K21.9 Gastro-esophageal reflux disease without esophagitis; Z68.32 Body mass index [BMI] 32.0-32.9, adult; E66.811 Obesity, class 1; R30.0 Dysuria

== ENCOUNTER 2024-12-06 19:33 | Emergency (ER) | payer OTHER, MEDICAID ==
[~2024-12-06] VITALS: Ht 167.6 cm; Wt 88.6 kg
[2024-12-06 19:40] VITALS: TEMP 99.8
[2024-12-06] MEDS: OSELTAMIVIR PHOSPHATE 75 MG CAP PO ONE (22:05)
[2024-12-06] MEDS: ONDANSETRON 4MG ORAL DISINTEGRATING TAB PO ONE (22:05)
[2024-12-06 22:23] LABS: BASO % 0.4 % (0.0-1.0); EOS % 0.4 % (0.0-3.0); HEMATOCRIT 50.2 % (42.0-52.0); HEMOGLOBIN 17.7 g/dl (13.5-17.5); LYMPH # 0.5 10^3/uL (1.5-5.0); MEAN CORPUSCULAR HEMOGLOBIN 33.5 pg (27.0-33.0); MEAN CORPUSCULAR HGB CONC 35.3 g/dl (32.0-36.5); MEAN CORPUSCULAR VOLUME 94.9 fl (80.0-96.0); MONO # 0.7 10^3/uL (0.0-0.8); MONO % 15.3 % (2.0-8.0); NEUTROPHILS # 3.4 10^3/uL (1.5-8.5); NEUTROPHILS % 72.7 % (36.0-66.0); PLATELET COUNT, AUTOMATED 145 10^3/uL (150-450); RED BLOOD COUNT 5.29 10^6/uL (4.30-6.10); WHITE BLOOD COUNT 4.7 10^3/uL (4.0-10.0)
[2024-12-06] MEDS: IPRATROPIUM 0.5MG/ALBUTEROL 2.5MG INH SOL UD 3ML (DUONEB) NEB ONE (22:37)
[2024-12-06 22:51] LABS: CK-MB VALUE MASS 1.1 NG/ML (<3.6)
[2024-12-06 22:53] LABS: BLOOD UREA NITROGEN 15 MG/DL (9-23); CALCIUM LEVEL 8.9 MG/DL (8.5-10.1); CARBON DIOXIDE LEVEL 26 MMOL/L (20-31); CHLORIDE LEVEL 104 MMOL/L (98-107); CPK CREATINE PHOSPHOKINASE 117 U/L (46-171); GLOMERULAR FILTRATION RATE > 60.0 (>60); GLUCOSE, FASTING 178 MG/DL (60-100); MAGNESIUM LEVEL 1.8 MG/DL (1.8-2.4); MB/CK RELATIVE INDEX 0.94 (< OR =4); POTASSIUM SERUM 4.4 MMOL/L (3.5-5.1); SODIUM LEVEL 137 MMOL/L (136-145)
[2024-12-06] MEDS ORDERED: OSEL75CA PO (23:23)
[2024-12-06] MEDS ORDERED: ONDA-282 PO (23:24)
[2024-12-07] VITALS: BP 131/60
[2024-12-07 00:03] VITALS: O2SAT 93
== END 2024-12-07 00:05 | disposition home or self-care (01) ==
LOC: M ED 19:33
DX: J10.1 Influenza due to other identified influenza virus with other respiratory manifestations (principal); E11.9 Type 2 diabetes mellitus without complications; I10 Essential (primary) hypertension; F31.9 Bipolar disorder, unspecified; F20.9 Schizophrenia, unspecified; J44.9 Chronic obstructive pulmonary disease, unspecified; Z79.4 Long term (current) use of insulin; Z88.6 Allergy status to analgesic agent; F17.200 Nicotine dependence, unspecified, uncomplicated; R94.31 Abnormal electrocardiogram [ECG] [EKG]; Z79.899 Other long term (current) drug therapy; Z79.84 Long term (current) use of oral hypoglycemic drugs

== ENCOUNTER 2025-02-16 21:45 | Emergency (ER) | payer OTHER, MEDICAID ==
[~2025-02-16] VITALS: Ht 170.2 cm; Wt 84.1 kg
[~2025-02-16 21:45] MED LIST changes: -BUPR-597 PO; +BUPR-766 PO; +ONDA-282 PO; +OSEL75CA PO
[2025-02-16 21:47] VITALS: TEMP 98.1
[2025-02-16 22:29] LABS: BASO % 0.5 % (0.0-1.0); EOS # 0.1 10^3/uL (0.0-0.5); EOS % 0.8 % (0.0-3.0); HEMATOCRIT 50.2 % (42.0-52.0); HEMOGLOBIN 17.6 g/dl (13.5-17.5); LYMPH # 1.8 10^3/uL (1.5-5.0); LYMPH % 24.2 % (24.0-44.0); MEAN CORPUSCULAR HEMOGLOBIN 33.7 pg (27.0-33.0); MEAN CORPUSCULAR HGB CONC 35.1 g/dl (32.0-36.5); MEAN CORPUSCULAR VOLUME 96.2 fl (80.0-96.0); MONO # 0.3 10^3/uL (0.0-0.8); MONO % 4.4 % (2.0-8.0); NEUTROPHILS # 5.2 10^3/uL (1.5-8.5); NEUTROPHILS % 69.7 % (36.0-66.0); PLATELET COUNT, AUTOMATED 197 10^3/uL (150-450); RED BLOOD COUNT 5.22 10^6/uL (4.30-6.10); WHITE BLOOD COUNT 7.5 10^3/uL (4.0-10.0)
[2025-02-16 22:58] LABS: BLOOD UREA NITROGEN 12 MG/DL (9-23); CALCIUM LEVEL 8.8 MG/DL (8.5-10.1); CARBON DIOXIDE LEVEL 24 MMOL/L (20-31); CHLORIDE LEVEL 108 MMOL/L (98-107); CK-MB VALUE MASS < 1.0 NG/ML (<3.6); CREATININE FOR GFR 0.77 MG/DL (0.70-1.30); GLOMERULAR FILTRATION RATE > 90.0 (>60); GLUCOSE, FASTING 248 MG/DL (60-100); POTASSIUM SERUM 4.1 MMOL/L (3.5-5.1); SODIUM LEVEL 140 MMOL/L (136-145)
[2025-02-16 23:00] VITALS: BP 111/64; O2SAT 100
[2025-02-16 23:01] LABS: THYROID STIMULATING HORMONE 0.801 uIU/ML (0.55-4.78)
[2025-02-16 23:03] LABS: CPK CREATINE PHOSPHOKINASE 115 U/L (46-171); MB/CK RELATIVE INDEX 0.86 (< OR =4)
== END 2025-02-16 23:25 | disposition left against medical advice (07) ==
LOC: M ED 21:45
DX: Z53.21 Procedure and treatment not carried out due to patient leaving prior to being seen by health care provider (principal)

== ENCOUNTER → 2025-02-26 | Outpatient (REF) | payer OTHER, MEDICAID ==
[2025-02-26 17:33] LABS: HEMOGLOBIN A1c 7.3 % (4.0-6.0)
[2025-02-26 17:51] LABS: CHOLESTEROL LEVEL 128 MG/DL (<200); CHOLESTEROL RISK RATIO 3.33 (<5); HDL CHOLESTEROL 38.4 MG/DL (>40); NON-HDL-C 89.6 MG/DL; TRIGLYCERIDES LEVEL 450 MG/DL (<150)
== END ==
LOC: M SFHCADAM 12:15
PROVIDERS: ATTEND Physician Assistant
DX: E11.43 Type 2 diabetes mellitus with diabetic autonomic (poly)neuropathy (principal)

== ENCOUNTER → 2025-09-10 | Outpatient (REF) | payer OTHER, MEDICAID ==
[2025-09-10 18:41] LABS: PLATELET COUNT, AUTOMATED 219 10^3/uL (150-450)
[2025-09-10 18:50] LABS: ALT/SGPT 18 U/L (7.0-40); AST/SGOT 15 U/L (<34); CALCIUM LEVEL 9.3 MG/DL (8.5-10.1); CARBON DIOXIDE LEVEL 33 MMOL/L (20-31); CHLORIDE LEVEL 100 MMOL/L (98-107); CHOLESTEROL LEVEL 108 MG/DL (<200); CHOLESTEROL RISK RATIO 3.30 (<5); CREATININE FOR GFR 0.84 MG/DL (0.70-1.30); FREE T4 1.46 NG/DL (0.89-1.76); GLOMERULAR FILTRATION RATE > 90.0 (>60); LDL CHOLESTEROL 33.9 MG/DL (<100); NON-HDL-C 75.3 MG/DL; POTASSIUM SERUM 4.4 MMOL/L (3.5-5.1); SODIUM LEVEL 140 MMOL/L (136-145); TRIGLYCERIDES LEVEL 207 MG/DL (<150)
[2025-09-10 18:51] LABS: VITAMIN B12 LEVEL 318 PG/ML (211-911)
[2025-09-10 19:26] LABS: ESTIMATED AVERAGE GLUCOSE 146.0 MG/DL (60-110)
== END ==
LOC: M SFHCADAM 14:44
PROVIDERS: ATTEND Physician Assistant
DX: E11.43 Type 2 diabetes mellitus with diabetic autonomic (poly)neuropathy (principal); F17.218 Nicotine dependence, cigarettes, with other nicotine-induced disorders; G47.33 Obstructive sleep apnea (adult) (pediatric); K21.9 Gastro-esophageal reflux disease without esophagitis; E78.00 Pure hypercholesterolemia, unspecified